=== PATIENT | male | born 1960 | race Caucasian/White ===

== ENCOUNTER → 2019-01-25 | Outpatient (CLI) | payer MEDICARE ==
--- NOTE | 2019-01-26 08:57 | CTL ---
EXAMINATION TYPE: CT Low Dose Lung DATE OF EXAM ORDERED: 01/25/2019 COMPARISON: 02/20/2014 HISTORY: . Low Dose CT Lung Screening CT DLP: [address] CTDI: 3.98 mGy IV CONTRAST USED: None. SCREENING VISIT: First visit COMPARISON: None. TECHNIQUE: Low dose computed tomography scan was performed through the chest at 1 millimeter thick se ctions and reconstructed images in the coronal plane at [address] DIAGNOSTIC QUALITY: Satisfactory FINDINGS: LUNG NODULES: Within the left upper lobe there is a nodule identified measuring approximately 1.6 cm image 146. Lingular nodule noted measuring 7.6 mm. No right-sided nodules are seen with certainty. LUNGS: COPD: Severity: Moderate intralobular emphysema. Fibrosis: Severity:None Lymph nodes: None Other findings: None RIGHT PLEURAL SPACE: Effusion: None Calcification: None Thickening: None Pneumothorax: None LEFT PLEURAL SPACE: Effusion: None Calcification: None Thickening: None Pneumothorax: None HEART: Heart Size: Mildly enlarged Coronary calcification: Mild Pericardial effusion: None OTHER FINDINGS: Upper abdomen: No significant abnormality Bony thorax: Degenerative changes Supraclavicular region: No significant abnormalityOther: No significant abnormalityI IMPRESSION: 1. Suspicious 4B PET/CT and/or tissue sampling recommended. FOLLOW UP CT CHEST RECOMMENDATION: PET/CT and/or tissue sampling recommended. CT LUNG RAD: 4B
== END ==
LOC: RADCTMAIN 16:22
PROVIDERS: ATTEND Internal Medicine
DX: Z12.2 Encounter for screening for malignant neoplasm of respiratory organs (principal); Z87.891 Personal history of nicotine dependence

== ENCOUNTER → 2019-02-05 | Outpatient (CLI) | payer MEDICARE | END | disposition home or self-care (01) | LOC: RADPETMAIN 12:37 | PROVIDERS: ATTEND Internal Medicine | DX: Z53.9 Procedure and treatment not carried out, unspecified reason (principal) ==

== ENCOUNTER → 2019-02-12 | Outpatient (CLI) | payer MEDICARE ==
--- NOTE | 2019-02-14 09:24 | PE ---
Nuclear medicine PET/CT HISTORY: Solitary pulmonary nodule, initial Patient received 12 mCi F-18 FDG intravenously in delayed scanning was performed from the skull base to the mid thighs. An attenuation correction CT, localization CT scan was performed. Correlation to CT chest 01/25/2019 Neck and chest: There is no evident cervical or supraclavicular adenopathy. There are prevascular med iastinal nodes with associated hypermetabolic uptake near the aorticopulmonary window, SUV 2.9, node present in the retrocaval pretracheal mediastinum is not enlarged by CT scan criteria, left hilar nod e not enlarged SUV 2.7. There is a calcified left upper lobe nodule medially. No pleural perfusion, n o pericardial effusion. Some possible post inflammatory scarring or atelectatic change present within the lingula. There is emphysematous change present. Probable postinflammatory scarring present in th e left upper lobe medially. The left upper lobe nodule described in prior report is again noted. Ther e is some associated mild uptake, SUV 1.9. Abdomen pelvis: There is no evident adrenal mass. No retroperitoneal adenopathy. No suspicious hyperm etabolic uptake. Prostate is enlarged and shows associated calcification Osseous structures are within normal limits. Postop changes are noted to the cervical spine and left clavicle. No suspicious hypermetabolic uptake. IMPRESSION: Suspicious nodule left upper lobe with some mild mediastinal uptake as described, annie de
== END | disposition home or self-care (01) ==
LOC: RADPETMAIN 08:04
PROVIDERS: ATTEND Internal Medicine
DX: R91.1 Solitary pulmonary nodule (principal)
CPT/HCPCS: 78815; A9552

== ENCOUNTER → 2019-03-21 | Outpatient (CLI) | payer MEDICARE ==
[2019-03-21 12:51] LABS: Anisocytosis Slight; Basophils # (A) 0.1 k/uL (0-0.2); Basophils % (A) 1 %; Eosinophils # (A) 0.2 k/uL (0-0.7); Eosinophils % (A) 2 %; HCT 49.8 % (39.0-53.0); HGB 16.4 gm/dL (13.0-17.5); Lymphocytes # (A) 2.4 k/uL (1.0-4.8); Lymphocytes % (A) 34 %; MCH 28.9 pg (25.0-35.0); MCHC 32.9 g/dL (31.0-37.0); MCV 87.9 fL (80.0-100.0); Mean Platelet Volume 7.1; Monocytes # (A) 0.4 k/uL (0-1.0); Monocytes % (A) 6 %; Neutrophils # (A) 3.9 k/uL (1.3-7.7); Neutrophils % (A) 54 %; Platelet Count 250 k/uL (150-450); RBC 5.67 m/uL (4.30-5.90); RDW 16.7 % (11.5-15.5); WBC 7.2 k/uL (3.8-10.6)
[2019-03-21 13:05] LABS: INR 0.9 (<1.2); Partial Thromboplastin Time 23.6 sec (22.0-30.0); Prothrombin Time 9.8 sec (9.0-12.0)
[2019-03-21 13:07] LABS: African American GFR (CKD) >90 (>60 ml/min/1.73 sqM); Anion Gap 7 mmol/L; Blood Urea Nitrogen 22 mg/dL (9-20); Carbon Dioxide 29 mmol/L (22-30); Chloride 103 mmol/L (98-107); Glucose 81 mg/dL (74-99); Sodium 139 mmol/L (137-145)
== END | disposition home or self-care (01) ==
LOC: LABPAT 11:43
PROVIDERS: ATTEND Thoracic Surgery (Cardiothoracic Vascular Surgery)
DX: Z01.812 Encounter for preprocedural laboratory examination (principal); Z01.818 Encounter for other preprocedural examination; R91.1 Solitary pulmonary nodule
CPT/HCPCS: 36415; 80051; 82565; 82947; 84520; 85025; 85610; 85730; 93005

== ENCOUNTER 2019-04-21 06:12 | Day surgery (SDC) | payer MEDICARE ==
[2019-04-20 08:56] VITALS: BMI 25.4
[~2019-04-21 06:12] MED LIST: LACTATED RINGERS 1,000 ML IV SCH; LIDOCAINE 1% 20 ML VIAL (10MG/ML) FOR IV START INTRADERMA PRN; MIDAZOLAM 2 MG/2 ML VIAL IV PRN
[2019-04-21] MEDS: ONDANSETRON 4 MG/2 ML VIAL IVP ONE ×2 (06:42→09:12)
[2019-04-21] MEDS: DEXAMETHASONE SOD PHOSPHATE 10 MG/ML 1 ML VIAL IV ONE ×2 (06:43→12:18)
[2019-04-21] MEDS ORDERED: ROCURONIUM BROMIDE 10 MG/ML 10 ML VIAL IV ONE (07:29)
[2019-04-21] MEDS ORDERED: NEOSTIGMINE 1 MG/ML 10 ML VIAL ONE (07:29)
[2019-04-21] MEDS ORDERED: GLYCOPYRROLATE 0.2 MG/ML 2 ML VIAL ONE (07:29)
[2019-04-21] MEDS ORDERED: LABETALOL 5 MG/ML VIAL MDV ONE (07:29)
[2019-04-21] MEDS ORDERED: fentaNYL (PF) 50 MCG/ML 2 ML AMP ONE (07:29)
[2019-04-21] MEDS ORDERED: LIDOCAINE 1% INJ 10MG/ML (20 ML MDV) ONE (07:29)
[2019-04-21] MEDS ORDERED: PROPOFOL 10 MG/ML 20 ML VIAL IV ONE (07:29)
[2019-04-21] MEDS ORDERED: MIDAZOLAM 2 MG/2 ML VIAL ONE (07:29)
[2019-04-21] MEDS ORDERED: BUPIVACAINE (PF) 0.5% 30 ML VIAL SQ ONE ×2 (08:17)
[2019-04-21] MEDS: fentaNYL (PF) 50 MCG/ML 2 ML AMP IV PRN ×2 (09:12→09:21)
--- NOTE | 2019-04-21 09:13 | P.OP ---
Date of Procedure: 04/21/19 Preoperative Diagnosis: Left upper lobe lung tumor, AP window lymphadenopathy Postoperative Diagnosis: Same Procedure(s) Performed: Left thoracoscopy and biopsy of mediastinal lymph nodes Anesthesia: GISELE Surgeon: Jhonathan Matta Wet Sander #1: Nils Hernandez Estimated Blood Loss (ml): 20 IV fluids (ml): 500 Urine output (ml): 0 Pathology: other (Lacey 5 lymph nodes sent for permanent section and culture including routine, acid fast and fungal) Condition: stable Disposition: PACU Indications for Procedure: 58-year-old male smoker underwent screening computed tomography scan demonstrating a small mass in the left upper lobe of the lung. He has fairly marketed left upper lobe bullous emphysema. The lung nodule was very deep in the lung parenchyma. Patient was staged with a PET/CT which showed uptake in the lung mass as well as uptake in some mildly enlarged lymph nodes in the aorticopulmonary window. Various options were discussed with the patient. He opted for diagnostic staging lymph node biopsy as the first step. Given the location of the nodes and the adjacent severe pulmonary emphysematous disease, it was felt the best and safest route of approach would be through a left thoracoscopic approach. Operative Findings: There were partially complete fissures present. There was marketed bolus emphysematous change of the left upper lobe. There were some adhesions of this bullous disease to the mediastinal fat. The lung mass could not be palpated. There were enlarged anthracotic soft lymph nodes in the AP window. Description of Procedure: The patient was brought to the operating room, placed supine on the operating table, anesthetized and intubated with a double-lumen endotracheal tube. Tube was positioned with fiberoptic bronchoscopy. There was no evidence of any endobronchial noted. The patient was turned in the right lateral decubitus position and the left chest sterilely prepped and draped. 3 one-inch inch incisions were made in the left chest and carried into the pleural space. Single lung insufflation was used and the lung was retracted away from the mediastinal fat. Adhesions between the lung and the mediastinal fat were taken down with electrocautery. The AP window was exposed. There were enlarged anthracotic soft lymph nodes noted in the AP window. The pleura was incised with electrocautery and the lymph nodes dissected out. 3 lymph nodes were resected. A small portion of the largest one was sent for culture. The remainder was sent for permanent section. A piece of Surgicel was placed in the lymph node bed in order to control some minor venous bleeding. 28-Vietnamese chest tube was placed through separate stab incision and positioned posterior apically. It was secured with an 0 Ethibond suture. The lung was reinflated under thoracoscopic visualization. Rib blocks were performed at the level of the incisions with half percent Marcaine. The incisions were closed with layers of Vicryl suture. Skin glue and dry sterile dressings were applied. The chest tube was connected to a Pleur-evac. The drapes were removed and the patient transferred to recovery room extubated in stable condition.
--- NOTE | 2019-04-21 09:22 | XR ---
EXAMINATION TYPE: XR chest 1V portable DATE OF EXAM: 04/21/2019 COMPARISON: 06/09/2016 INDICATION: Post VATS TECHNIQUE: Single frontal view of the chest is obtained. FINDINGS: The heart size is normal. The pulmonary vasculature is normal. The lungs are clear. No pneumothorax is evident. Left-sided chest tube is present. Prior plate and s crews through the mid diaphysis left clavicle is noted. EKG leads overlie the chest. IMPRESSION: 1. No pneumothorax present. Left-sided chest tube is in position.
[2019-04-21] MEDS ORDERED: ACETAMINOPHEN TAB 500 MG TAB PO PRN (09:38)
[2019-04-21] MEDS ORDERED: IPRATROPIUM-ALBUTEROL 3 ML NEB IH PRN (09:38)
[2019-04-21] MEDS ORDERED: ONDANSETRON 4 MG/2 ML VIAL IVP PRN (09:38)
[2019-04-21] MEDS: IPRATROPIUM-ALBUTEROL 3 ML NEB IH SCH ×3 (11:12→19:43)
[2019-04-21] MEDS: DEXTROSE 5%-0.45% NACL 1,000 ML IV SCH (12:19)
[2019-04-21] MEDS: KETOROLAC 30 MG/ML 1 ML VIAL IVP SCH ×3 (12:25→23:25)
[2019-04-21] MEDS: HYDROcodone/APAP 5-325MG 1 EACH TAB PO PRN ×3 (12:26→20:30)
[2019-04-21] MEDS ORDERED: traMADol 50 MG TAB PO SCH (13:00)
[2019-04-21] MEDS: HEPARIN SODIUM,PORCINE 5,000 UNIT/ML 1 ML VIAL SQ SCH ×2 (17:16→23:25)
[2019-04-21] MEDS: SYMBICORT 160-4.5 MCG INHALER INHALATION SCH (19:41)
[2019-04-21] MEDS ORDERED: CYCLOBENZAPRINE 10 MG TAB PO SCH (21:00)
[2019-04-21] MEDS ORDERED: SERTRALINE 100 MG TAB PO SCH (21:00)
[2019-04-22 03:17] VITALS: RESP 18
[2019-04-22 06:12] LABS: Basophils % (A) 0 %; Eosinophils # (A) 0.1 k/uL (0-0.7); Eosinophils % (A) 1 %; HCT 42.1 % (39.0-53.0); HGB 14.5 gm/dL (13.0-17.5); Lymphocytes # (A) 2.4 k/uL (1.0-4.8); Lymphocytes % (A) 21 %; MCH 29.5 pg (25.0-35.0); MCHC 34.3 g/dL (31.0-37.0); MCV 85.8 fL (80.0-100.0); Monocytes # (A) 0.6 k/uL (0-1.0); Monocytes % (A) 5 %; Neutrophils # (A) 7.9 k/uL (1.3-7.7); Neutrophils % (A) 71 %; Platelet Count 234 k/uL (150-450); RBC 4.91 m/uL (4.30-5.90); RDW 14.8 % (11.5-15.5); WBC 11.1 k/uL (3.8-10.6)
[2019-04-22 06:22] LABS: African American GFR (CKD) >90 (>60 ml/min/1.73 sqM); Anion Gap 9 mmol/L; Blood Urea Nitrogen 23 mg/dL (9-20); Calcium 9.5 mg/dL (8.4-10.2); Carbon Dioxide 26 mmol/L (22-30); Chloride 99 mmol/L (98-107); Glucose 109 mg/dL (74-99); Potassium 4.4 mmol/L (3.5-5.1); Sodium 134 mmol/L (137-145)
[2019-04-22] MEDS: KETOROLAC 30 MG/ML 1 ML VIAL IVP SCH ×2 (06:27→11:16)
[2019-04-22] MEDS: SYMBICORT 160-4.5 MCG INHALER INHALATION SCH (07:12)
[2019-04-22] MEDS: IPRATROPIUM-ALBUTEROL 3 ML NEB IH SCH ×2 (07:12→10:54)
[2019-04-22] MEDS ORDERED: PANTOPRAZOLE 40 MG TABLET PO SCH (07:30)
[2019-04-22] MEDS: HEPARIN SODIUM,PORCINE 5,000 UNIT/ML 1 ML VIAL SQ SCH (08:10)
[2019-04-22] MEDS: HYDROcodone/APAP 5-325MG 1 EACH TAB PO PRN (08:11)
[2019-04-22] MEDS: DEXTROSE 5%-0.45% NACL 1,000 ML IV SCH (08:54)
[2019-04-22] MEDS ORDERED: LISINOPRIL 10 MG TAB PO SCH (09:00)
--- NOTE | 2019-04-22 09:20 | P.PN ---
Subjective Progress Note Date: 04/22/19 Principal diagnosis: Left upper lobe lung tumor with AP window lymphadenopathy. Previous medical history of current tobacco dependence, COPD, and hypertension POD #1 left thoracoscopy and biopsy of mediastinal lymph nodes The patient is currently sitting up in bed in no acute distress on the cardiac stepdown unit. His left-sided thoracostomy tube was placed to waterseal yes terday afternoon, he continued to have no air leak, and his chest x-ray this morning was stable. He denies shortness of breath. He does complain of some pain at the chest tube insertion site which is controlled on current medication regimen. He has been actively using his incentive spirometry and his been up ambulating in the room. No new concerns. Objective - Vital Signs Vital signs: Vital Signs Temp 97.7 F 04/22/19 03:49 Pulse 70 04/22/19 07:21 Resp 18 04/22/19 03:49 BP 118/78 04/22/19 03:49 Pulse Ox 89 L 04/22/19 03:49 Intake & Output 04/21/19 04/22/19 04/22/19 18:59 06:59 18:59 Intake Total 1380 420 Output Total 10 27 Balance 1370 -27 420 Weight 84.7 kg Intake: IV 900 Oral 480 420 Output: Chest Tube Drainage 27 Chest Tube Left 27 Estimated Blood Loss 10 Other: Voiding Method Toilet # Voids 2 1 - Constitutional General appearance: Present: cooperative, no acute distress - Respiratory Details: Lungs sounds diminished bilaterally. Respirations even, nonlabored. Currently on room air with oxygen saturation 93%. Able to achieve 1000 mL on his incentive spirometry. Left-sided thoracostomy tube present to waterseal, 30 mL serous drainage present in the atrium, no air leak present. - Cardiovascular Details: S1, S2 present. Regular rate and rhythm, sinus rhythm on telemetry. Palpable peripheral pulses bilaterally. No edema present. No calf pain or tenderness noted. - Gastrointestinal Gastrointestinal Comment(s): Abdomen soft, nontender, nondistended. Active bowel sounds present 4 quadrants. Tolerating diet. - Genitourinary Genitourinary Comment(s): Continues to void - Integumentary Integumentary Comment(s): Skin is warm and dry with evidence of good perfusion. - Neurologic Neurologic: Present: CNII-XII intact - Musculoskeletal Musculoskeletal: Present: gait normal, strength equal bilaterally - Psychiatric Psychiatric: Present: A&O x's 3, appropriate affect, intact judgment & insight - Allied health notes Allied health notes reviewed: nursing - Labs CBC & Chem 7: 04/22/19 05:27 04/22/19 05:27 Labs: Abnormal Lab Results - Last 24 Hours (Table) 04/22/19 04/22/19 Range/Units 05:27 05:27 WBC 11.1 H (3.8-10.6) k/uL Neutrophils # 7.9 H (1.3-7.7) k/uL Sodium 134 L (137-145) mmol/L BUN 23 H (9-20) mg/dL Glucose 109 H (74-99) mg/dL Microbiology - Last 24 Hours (Table) 04/21/19 08:40 Acid Fast Bacilli Smear - Final Lymph Node Acid Fast Bacilli Culture - Preliminary 04/21/19 08:40 Fungal Culture - Preliminary Lymph Node - Imaging and Cardiology Chest x-ray: image reviewed Assessment and Plan Assessment: 1. Left upper lobe lung tumor with AP window lymphadenopathy 2. Current tobacco dependence 3. COPD 4. Hypertension Plan: 1. Left thoracostomy tube was discontinued without incident. Repeat chest x- ray in 2 hours. If stable will discharge to home. 2. Encourage incentive spirometry use 3. Increase activity, ambulate in hallway 4. Encouraged continued smoking cessation 5. Follow-up appointments made. Discharge instructions placed on the discharge plan. MARRIAGE PERFORMER contact information given to patient. Time with Patient: Greater than 30
--- NOTE | 2019-04-22 10:30 | XR ---
EXAMINATION TYPE: XR chest 2V DATE OF EXAM: 04/22/2019 COMPARISON: 04/22/2019 earlier exam INDICATION: Post chest tube removal, history of lung nodule TECHNIQUE: Frontal and lateral views of the chest are obtained. FINDINGS: The heart size is normal. The pulmonary vasculature is normal. There is an infiltrate at the right base. Mild subsegmental atelectasis is likely present left base. Subcutaneous emphysema is present along the lateral left chest at the location of the previous chest tube. No pneumothorax is evident post chest tube removal.. IMPRESSION: 1. No pneumothorax post chest tube removal. 2. Bibasilar infiltrates. Correlate for subsegmental atelectasis. Pneumonia should be considered. Fol low-up to clearing is recommended
[2019-04-22 11:13] VITALS: BP 124/85; PULSE 65; TEMP 97.9
--- NOTE | 2019-04-22 11:39 | XR ---
EXAMINATION TYPE: XR chest 2V DATE OF EXAM: 04/22/2019 COMPARISON: 04/21/2019 INDICATION: Post VATS TECHNIQUE: Frontal and lateral views of the chest are obtained. FINDINGS: The heart size is normal. The pulmonary vasculature is normal. Bibasilar infiltrates are present. Correlate for atelectasis. This is an interval change. Left-sided chest tube remains in position. No pneumothorax is evident.. IMPRESSION: 1. Interval development of bibasilar infiltrates. This is greater on the right. Correlate for atelect asis
--- NOTE | 2019-04-22 14:20 | P.DS ---
Providers Expected date of discharge: 04/22/19 Attending physician: Jhonathan Matta Primary care physician: Magdalena Sarmiento [facility] Course: FINAL DIAGNOSIS: 1. Left upper lobe lung tumor with AP window lymphadenopathy 2. Current tobacco dependence 3. COPD 4. Hypertension PRINCIPAL PROCEDURE: 1. Left thoracoscopy and biopsy of mediastinal lymph nodes HISTORY OF PRESENT ILLNESS: This is a 58-year-old gentleman who follows on an outpatient basis with Dr. Sarmiento and Dr. Bullock for pulmonology. Due to his long- term history of smoking he was sent for a screening computed tomography scan in January 2019 which demonstrated a nodule in the left upper lobe. Subsequently he underwent PET scan that confirmed uptake in the nodule in the left upper lobe as well as uptake in the lymph nodes in the AP window. The uptake was relatively mild with SUVs in the 3ish range on both the lung nodule and the mediastinum with no other evidence of metastatic disease. The nodule measured 1.5 cm in greatest diameter and appeared fairly deep in the lung parenchyma. He did have significant bullous emphysema in the left lung. The patient was referred to Dr. Matta from cardiothoracic surgery. He was given various options including observation with repeat studies, needle biopsy, thoracoscopy with biopsy as well as lobectomy. The patient was unwilling to commit to lobectomy. He was recommended to undergo thoracoscopy with lymph node biopsy, and dependent on the results of the biopsy further recommendations would be made for surgical resection. The usual perioperative course was discussed in detail with the patient and his family, all risks and benefits were explained, all questions were answered, and consent was obtained to proceed with surgery. The patient was scheduled for surgery at the earliest possible date. HOSPITAL COURSE: The patient was brought to the hospital on 04/21/2019, taken to the preoperative area, prepared in the usual fashion, and subsequently taken to the operating room where Dr. Matta performed a left thoracoscopy with biopsy of mediastinal lymph nodes. Upon completion of surgery the patient was extubated and taken to the recovery room for further monitoring. Eventually he was admitted to 3 S. cardiac stepdown unit for further monitoring and recovery. His left pleural chest tube was placed to waterseal the afternoon of surgery with no air leak present. His follow-up chest x-ray on postop day 1 was stable, there was no air leak present, and the left pleural chest tube was discontinued without incident. His oxygen was titrated down, however he did need oxygen with ambulation. He was tolerating oral diet, his pain was controlled, and he was ready to be discharged to home with supplemental oxygen on postoperative day #1. He received written and verbal instruction regarding his medications, activity restrictions, signs and symptoms requiring physician notification, and follow-up appointments. COMPLICATIONS: The patient experienced no postoperative complications. Patient Condition at Discharge: Stable Plan - Discharge Summary Discharge Rx Participant: Yes New Discharge Prescriptions: New Acetaminophen Tab [Tylenol] 1,000 mg PO Q6HR PRN tab PRN Reason: Fever and/ or MILD Pain Continue Lisinopril [Zestril] 10 mg PO QAM Ibuprofen [Motrin] 800 mg PO BID Hydrocodone/Acetaminophen [Sheridan 7.5-325] 1 tab PO DAILY Cyclobenzaprine [Flexeril] 10 mg PO HS Budesonide/Formoterol Fumarate [Symbicort 160-4.5 Mcg Inhaler] 2 puff INHALATION BID Albuterol Inhaler [Ventolin Hfa Inhaler] 1 - 2 puff INHALATION RT-Q6H PRN PRN Reason: Dyspnea Hydrocortisone Cream [Hydrocortisone 1% Cream] 1 applic TOPICAL BID PRN PRN Reason: Skin Irritation Sertraline [Zoloft] 100 mg PO HS Albuterol Nebulized [Ventolin Nebulized] 1.25 mg INHALATION QID Discharge Medication List Cyclobenzaprine [Flexeril] 10 mg PO HS 06/09/16 [History] Hydrocodone/Acetaminophen [Sheridan 7.5-325] 1 tab PO DAILY 06/09/16 [History] Ibuprofen [Motrin] 800 mg PO BID 06/09/16 [History] Lisinopril [Zestril] 10 mg PO QAM 06/09/16 [History] Albuterol Inhaler [Ventolin Hfa Inhaler] 1 - 2 puff INHALATION RT-Q6H PRN 03/24/19 [History] Budesonide/Formoterol Fumarate [Symbicort 160-4.5 Mcg Inhaler] 2 puff INHALATION BID 03/24/19 [History] Hydrocortisone Cream [Hydrocortisone 1% Cream] 1 applic TOPICAL BID PRN 03/25/19 [History] Albuterol Nebulized [Ventolin Nebulized] 1.25 mg INHALATION QID 04/20/19 [History] Sertraline [Zoloft] 100 mg PO HS 04/20/19 [History] Acetaminophen Tab [Tylenol] 1,000 mg PO Q6HR PRN tab 04/22/19 [Rx] Follow up Appointment(s)/Referral(s): Jhonathan Matta MD [STAFF PHYSICIAN] - 04/28/19 9:30 am () Geoffrey Bullock MD [STAFF PHYSICIAN] - 04/26/19 2:00 pm (Thursday) Magdalena Sarmiento MD [Primary Care Provider] - As Needed Patient Instructions/Handouts: Thoracoscopy (DC) Activity/Diet/Wound Care/Special Instructions: DISCHARGE INSTRUCTIONS: 1. No driving for 2 weeks, or until physician gives their ok. 2. No lifting, pushing, or pulling more than 10 pounds for 2 weeks. The physician will advise of any restriction changes. 3. Continue pain control per as needed orders. Alternate acetaminophen (Tylenol) and ibuprofen (Motrin/Advil) for pain. 4. Continue with incentive spirometry and splinting until otherwise directed by the physician. 5. Leave chest tube dressing for 48 hours. After that, remove all dressings and shower daily. 6. Routine incision care. No powders, lotions, ointments on incisions. 7. Please call surgeon/POURED PIPE MAKER for temp greater than 101 F or purulent drainage from incisions. RADHA Pierce ; RADHA Hooks Discharge Disposition: HOME SELF-CARE
== END 2019-04-22 13:02 | disposition home or self-care (01) ==
LOC: OR 06:12 → 3SCARD 08:53 → OR 04-22 13:02
PROVIDERS: ATTEND Thoracic Surgery (Cardiothoracic Vascular Surgery)
DX: C7A.1 Malignant poorly differentiated neuroendocrine tumors (principal); J43.9 Emphysema, unspecified; I10 Essential (primary) hypertension; R91.8 Other nonspecific abnormal finding of lung field; F41.9 Anxiety disorder, unspecified; F32.9 Major depressive disorder, single episode, unspecified; M19.90 Unspecified osteoarthritis, unspecified site; F17.200 Nicotine dependence, unspecified, uncomplicated; I08.1 Rheumatic disorders of both mitral and tricuspid valves; R00.1 Bradycardia, unspecified; Z79.899 Other long term (current) drug therapy; Z79.1 Long term (current) use of non-steroidal anti-inflammatories (NSAID); Z79.891 Long term (current) use of opiate analgesic; Z79.51 Long term (current) use of inhaled steroids; Z88.5 Allergy status to narcotic agent
CPT/HCPCS: 94640 ×4; 94760; 88305; 80048; 85025; 88342; 88341; 87116; 87102; 87206; 71045; 71046; 32606; C1729; J2250; J1644 ×2; J1100; J2710; J0690; J2405; J2001; J3010; J1885 ×2; J2704

== ENCOUNTER → 2019-05-14 | Outpatient (CLI) | payer MEDICARE ==
--- NOTE | 2019-05-18 09:58 | PE ---
Nuclear medicine PET/CT HISTORY: Small cell lung carcinoma, subsequent Patient received 11.9 mCi F-18 FDG intravenously in delayed scanning was performed from the skull bas e to the mid thighs. Localization and attenuation correction CT scan was performed. Correlation to prior nuclear medicine PET/CT 02/12/2019 Neck and chest: There is no evident cervical, supraclavicular, axillary adenopathy. There is artifact from dental amalgam and cervical hardware which could limit sensitivity. Prevascular node is suspect ed measuring 16 mm in short axis and is increased as compared to prior exam. Mild left hilar uptake s imilar to prior exam, SUV is 3.5. Groundglass opacities present at the posterior lung bases, linear p arenchymal bands are compatible with scarring within the lungs. Nodular density in the lingula shows a similar appearance. There is emphysematous change which is extensive. No pleural or pericardial eff usion. ABDOMEN: No evident adrenal mass or liver mass. No retroperitoneal adenopathy or suspicious metabolic uptake. Diverticular change seen in the sigmoid colon. Prostate calcifications are present. Osseous structures show no interval change. IMPRESSION: Interval increase in size in the prevascular adenopathy without associated hypermetabolic uptake.
== END | disposition home or self-care (01) ==
LOC: RADPETMAIN 11:49
PROVIDERS: ATTEND Internal Medicine Hematology & Oncology
DX: C34.12 Malignant neoplasm of upper lobe, left bronchus or lung (principal); R59.0 Localized enlarged lymph nodes
CPT/HCPCS: 78815; A9552

== ENCOUNTER → 2019-05-16 | Outpatient (CLI) | payer MEDICARE ==
--- NOTE | 2019-05-16 21:57 | MR ---
EXAMINATION TYPE: MR brain wo/w con DATE OF EXAM: 05/16/2019 COMPARISON: None HISTORY: Small cell lung ca, headaches CONTRAST: Performed utilizing 7.5 mL intravenous Gadavist gadolinium contrast. TECHNIQUE: Multiplanar, multiecho imaging on a 3.0 Mirlande magnet is performed through the brain. Stud y is performed within 24 hours of arrival to the hospital. The craniovertebral junction is normal. The pituitary is normal. Diffusion-weighted imaging is performed. No abnormal hyperintensity is present to suggest an acute i ntracranial infarct or acute ischemic change. There are scattered punctate areas of hyperintensity on T2 and Inversion Recovery weighted sequences in subcortical and deep white matter which are non-specific but can be related to microvascular ische billy changes. This is slightly greater than expected for the patient age. Ventricles and sulci are appropriate for the patient age. Following contrast, no suspicious enhancement is evident. IMPRESSIONS: 1. No suspicious changes to suggest metastatic small cell lung cancer to the brain. 2. Scattered small deep white matter changes which are nonspecific.
== END ==
LOC: RADMRIMAIN 18:27
PROVIDERS: ATTEND Internal Medicine Hematology & Oncology
DX: C34.90 Malignant neoplasm of unspecified part of unspecified bronchus or lung (principal)
CPT/HCPCS: 70553

== ENCOUNTER → 2019-11-03 | Outpatient (CLI) | payer MEDICARE ==
[2019-11-03 09:07] LABS: African American GFR (CKD) >90 (>60 ml/min/1.73 sqM); Blood Urea Nitrogen 26 mg/dL (9-20); Non-African American GFR(CKD) >90 (>60 ml/min/1.73 sqM)
--- NOTE | 2019-11-03 11:39 | CT ---
EXAMINATION TYPE: CT ChestAbdPelvis w con DATE OF EXAM: 11/03/2019 INDICATION: Follow up for lung cancer. COMPARISON: 08/08/2019 CT DLP: 1165.8 mGycm CONTRAST: Performed with Oral Contrast and with IV Contrast, patient injected with 100ml mL of Isovue 300. TECHNIQUE: Axial images at 5 mm thick sections. Reconstructed images in the coronal plane. Delayed images through the kidneys. FINDINGS: CT CHEST: Portion of the thyroid visualized is normal. No suspicious lung nodules or focal infiltrates are present. Advanced emphysematous changes are prese nt with multiple blebs and bulla evident especially along the mediastinal border on the left. Previou s atelectasis at the lung bases has improved. Some streak atelectasis appears to be present within th e lingula and right middle lobe. No enlarged mediastinal or hilar adenopathy is evident. A small pretracheal lymph node is present. Th e previously discussed medial pretracheal lymph node discussed is stable in size from the July ex mination. The ascending aorta diameter at the level of the main pulmonary artery is 3.7 cm. The main pulmonary artery diameter at the bifurcation is 2.[address] ABDOMEN: Liver: Normal Spleen: Normal Pancreas: Normal Adrenal glands: The adrenal glands are normal. Gallbladder: Normal Kidneys: No masses are evident. No hydronephrosis is present. No cysts are present. Delayed images were obtained through the kidneys, which remain unremarkable. Aorta: Vascular calcification is within the aorta. Inferior vena cava: Normal. CT PELVIS: Loops of bowel within the abdomen and pelvis are normal. Diverticular changes without acute diverti culitis is within the sigmoid colon. There are loops of bowel which are incompletely distended or la ck oral contrast limiting their evaluation. Appendix: Normal as visualized. Urinary bladder: Normal. Genitourinary structures: Prostate is prominent contains calcification. Osseous structures: No suspicious lytic or sclerotic lesions. Degenerative disc changes are within th e lower lumbar spine. Old right rib fractures are noted. IMPRESSIONS: 1. Emphysematous changes. 2. Exam is stable from comparison. 3. No suspicious changes suggest recurrent or metastatic disease.
== END | disposition home or self-care (01) ==
LOC: RADCTMAIN 08:38
PROVIDERS: ATTEND Internal Medicine Hematology & Oncology
DX: J43.9 Emphysema, unspecified (principal); C34.92 Malignant neoplasm of unspecified part of left bronchus or lung
CPT/HCPCS: 82565; 84520; 71260; 74177; 36415; Q9967

== ENCOUNTER → 2020-01-30 | Outpatient (CLI) | payer MEDICARE ==
--- NOTE | 2020-01-30 11:04 | CT ---
EXAMINATION TYPE: CT ChestAbdPelvis w con DATE OF EXAM: 01/30/2020 COMPARISON: Prior CT chest abdomen pelvis 11/03/2019 HISTORY: Lung cancer. CT DLP: 1119.2 mGycm Automated exposure control for dose reduction was used. CONTRAST: CT scan of the chest, abdomen and pelvis is performed with Oral Contrast and with IV Contrast, patien t injected with 100 mL of Isovue M300. FINDINGS: LUNGS: The lungs are stable, there is no concerning parenchymal mass or nodule identified. There are emphysematous changes present There is no pleural effusion or pneumothorax seen. The tracheobronchi al tree is patent. MEDIASTINUM: There are no greater than 1 cm hilar or mediastinal lymph nodes. No pericardial effusi on is seen. AORTA: No significant abnormality is seen. OTHER: No additional significant abnormality is seen. LIVER/GB: No significant abnormality is appreciated. PANCREAS: No significant abnormality is seen. SPLEEN: No significant abnormality is seen. ADRENALS: No significant abnormality is seen. KIDNEYS: No significant abnormality is seen. REPRODUCTIVE ORGANS: Stable. BOWEL: No significant interval change is seen, diverticular change noted within the sigmoid colon. FREE AIR: No Free Air visible. ASCITES: None seen. RETROPERITONEAL ADENOPATHY: No retroperitoneal adenopathy is seen. LYMPH NODES: No greater than 1 cm abdominal or pelvic lymph nodes are appreciated. URINARY BLADDER: No significant abnormality is seen. PELVIC ADENOPATHY: None visualized. OSSEOUS STRUCTURES: No significant interval change is seen. IMPRESSION: No evident recurrence
== END | disposition home or self-care (01) ==
LOC: RADCTMAIN 08:53
PROVIDERS: ATTEND Internal Medicine Hematology & Oncology
DX: C34.92 Malignant neoplasm of unspecified part of left bronchus or lung (principal)
CPT/HCPCS: 71260; 74177; Q9967 ×2

== ENCOUNTER → 2020-04-25 | Outpatient (CLI) | payer MEDICARE ==
--- NOTE | 2020-04-25 14:31 | CT ---
EXAMINATION TYPE: CT ChestAbdPelvis w con DATE OF EXAM: 04/25/2020 COMPARISON: Most recent CT January 30, 2020 and older CTs HISTORY: Follow up lung cancer. History of chemotherapy and radiation treatment. CT DLP: 996.6 mGycm. Automated Exposure Control for Dose Reduction was Utilized. CONTRAST: CT scan of the thorax, abdomen and pelvis is performed with oral and with IV Contrast, patient inject ed with 100 mL of Isovue 300. FINDINGS: LUNGS: Background moderate underlying emphysematous changes redemonstrated. Mild to moderate linear s carring and atelectasis in both bases just above diaphragm redemonstrated. No new suspicious nodules or masses bilaterally. No pleural effusion or pneumothorax seen bilaterally. MEDIASTINUM: There are no new greater than 1 cm hilar or mediastinal lymph nodes. Stable subcentimete r prevascular lymph node axial image 26 noted. No cardiomegaly or pericardial effusion is seen. OTHER: Small right greater than left subareolar flame-shaped gynecomastia redemonstrated. LIVER/GB: No significant abnormality is appreciated. PANCREAS: No significant abnormality is seen. SPLEEN: No significant abnormality is seen. ADRENALS: Stable low-density thickening left adrenal gland consistent with benign lipid rich hyperpla howard. KIDNEYS: Symmetrical cortical medullary uptake and excretion without hydronephrosis seen bilaterally. BOWEL: No suspicious small or large bowel dilatation. Sigmoid colonic diverticula redemonstrated. Or al contrast reaches the proximal transverse colon level. GENITAL ORGANS: Central zone calcifications. LYMPH NODES: No greater than 1cm abdominal or pelvic lymph nodes are appreciated. OSSEOUS STRUCTURES: Stable moderate disc space narrowing with vacuum disc phenomenon lumbosacral junc tion. OTHER: Stable moderate calcified plaque distal abdominal aorta extending into branch vessels IMPRESSION: No suspicious new mass or adenopathy identified to suggest active neoplastic recurrence.
== END | disposition home or self-care (01) ==
LOC: RADCTMAIN 12:05
PROVIDERS: ATTEND Internal Medicine Hematology & Oncology
DX: C34.92 Malignant neoplasm of unspecified part of left bronchus or lung (principal)
CPT/HCPCS: 71260; 74177; Q9967

== ENCOUNTER → 2020-08-01 | Outpatient (CLI) | payer MEDICARE ==
--- NOTE | 2020-08-01 21:25 | CT ---
EXAMINATION TYPE: CT ChestAbdPelvis w con DATE OF EXAM: 08/01/2020 INDICATION: Lung CA COMPARISON: 04/25/2020 CT DLP: 574.7 mGycm CONTRAST: Performed with Oral Contrast and with IV Contrast, patient injected with 100 mL of Isovue 300. TECHNIQUE: Axial images at 5 mm thick sections. Reconstructed images in the coronal plane. Delayed images through the kidneys. FINDINGS: CT CHEST: Portion of the thyroid visualized is normal. No suspicious lung nodules or focal infiltrates are present. Emphysematous changes are present with multiple blebs and bulla present. No enlarged mediastinal or hilar adenopathy is evident. The ascending aorta diameter at the level of the main pulmonary artery is 3.8 cm. The main pulmonary artery diameter at the bifurcation is 2.[address] ABDOMEN: Liver: Normal Spleen: Normal Pancreas: Normal Adrenal glands: The adrenal glands are normal. Gallbladder: Normal Kidneys: No masses are evident. No hydronephrosis is present. No cysts are present. Delayed images were obtained through the kidneys, which remain unremarkable. Aorta: Normal Inferior vena cava: Normal. CT PELVIS: Loops of bowel within the abdomen and pelvis are normal. There are loops of bowel which are incom pletely distended or lack oral contrast limiting their evaluation. Appendix: Normal as visualized. Urinary bladder: Normal. Genitourinary structures: Prostate contains calcification Osseous structures: No suspicious lytic or sclerotic lesions. IMPRESSIONS: 1. No suspicious changes to suggest recurrent or metastatic lung cancer. 2. Some COPD
== END | disposition home or self-care (01) ==
LOC: RADCTMAIN 11:56
PROVIDERS: ATTEND Internal Medicine Hematology & Oncology
DX: Z03.89 Encounter for observation for other suspected diseases and conditions ruled out (principal); C34.92 Malignant neoplasm of unspecified part of left bronchus or lung; J44.9 Chronic obstructive pulmonary disease, unspecified
CPT/HCPCS: 71260; 74177; Q9967 ×2

== ENCOUNTER → 2020-11-28 | Outpatient (CLI) | payer MEDICARE ==
--- NOTE | 2020-11-28 13:35 | CT ---
EXAMINATION TYPE: CT ChestAbdPelvis w con DATE OF EXAM: 11/28/2020 COMPARISON: Most recent CT August 01, 2020 and older studies HISTORY: Lung CA follow up CT DLP: 854.9 mGycm. Automated Exposure Control for Dose Reduction was Utilized. CONTRAST: CT scan of the thorax, abdomen and pelvis is performed with oral and with IV Contrast, patient inject ed with 100 mL of Isovue 300. FINDINGS: LUNGS: Background mild to moderate underlying emphysematous change is redemonstrated. Mild linear sca rring and/or atelectasis in both bases just above diaphragm is redemonstrated. More focal scarring wi th bulla and bleb formation anterior in the upper to mid lungs greater in the left lung is redemonstr ated. No new suspicious or enlarging greater than 5 mm nodules or masses bilaterally. No pleural effu uziel or pneumothorax seen bilaterally. MEDIASTINUM: There are no new greater than 1 cm hilar or mediastinal lymph nodes. Stable subcentimete r prevascular lymph node axial image 26 noted. No cardiomegaly or pericardial effusion is seen. OTHER: Small right greater than left subareolar flame-shaped gynecomastia redemonstrated. LIVER/GB: No significant abnormality is appreciated. PANCREAS: No significant abnormality is seen. SPLEEN: No significant abnormality is seen. ADRENALS: Stable low-density thickening left adrenal gland consistent with benign lipid rich hyperpla howard. KIDNEYS: Symmetrical cortical medullary uptake and excretion without hydronephrosis seen bilaterally. Circumaortic left renal vein which is normal variant redemonstrated. BOWEL: No suspicious small or large bowel dilatation. Sigmoid colonic diverticula redemonstrated. Or al contrast does not reach level of terminal ileum on current study. Normal-appearing appendix from b ase of cecum. GENITAL ORGANS: Central zone calcifications in mildly enlarged prostate. Adjacent scattered pelvic ph leboliths. LYMPH NODES: No greater than 1cm abdominal or pelvic lymph nodes are appreciated. OSSEOUS STRUCTURES: Stable moderate disc space narrowing with vacuum disc phenomenon lumbosacral junc tion. Surgical change left clavicle redemonstrated. Surgical change lower cervical spine partially im aged. OTHER: Stable moderate calcified plaque distal abdominal aorta extending into branch vessels IMPRESSION: No suspicious new mass or adenopathy identified to suggest active neoplastic recurrence.
== END | disposition home or self-care (01) ==
LOC: RADCTMAIN 11:05
PROVIDERS: ATTEND Internal Medicine Hematology & Oncology
DX: C34.92 Malignant neoplasm of unspecified part of left bronchus or lung (principal)
CPT/HCPCS: 71260; 74177; Q9967

== ENCOUNTER → 2021-03-22 | Outpatient (CLI) | payer MEDICARE ==
--- NOTE | 2021-03-22 13:41 | CT ---
EXAMINATION TYPE: CT ChestAbdPelvis w con DATE OF EXAM: 03/22/2021 COMPARISON: 11/28/2020 and 08/01/2020 HISTORY: 60-year-old male Follow up lung cancer. TECHNIQUE: Contiguous axial scanning of the chest, abdomen, and pelvis performed with IV Contrast, pa tient injected with 100 mL of Isovue 300. Delayed images through the kidneys were obtained. Coronal/s agittal reconstructions performed. CT DLP: 632.2 mGycm Automated exposure control for dose reduction was used. FINDINGS: CHEST: Heart normal size without pericardial effusion. Borderline ectatic ascending aorta 3.7 cm. Mild atherosclerotic arch calcifications. Conventional arc h vessel branching anatomy. Borderline caliber to the main right and left pulmonary arteries measuring up to 2.6 cm suggesting un derlying pulmonary arterial hypertension. Scattered small mediastinal lymph nodes are unchanged. No thoracic lymphadenopathy by CT size criteri a. Moderate centrilobular emphysema. Stable tiny 2 mm pulmonary nodule along the anterior minor fissure, axial image 39. Some scattered st ander atelectasis or scarring in the lower lungs. No consolidation or pleural effusion. ABDOMEN: No focal liver lesion or biliary ductal dilatation. Portal venous system is patent. Gallbladder, adrenal glands, kidneys, spleen, pancreas within normal limits. Circumaortic left renal vein. Moderate atherosclerotic calcifications infrarenal abdominal aorta and iliac arteries. There may be s egmental moderate to severe atherosclerotic narrowing distal common iliac arteries, left greater than right. Suspect additional short segment severe atherosclerotic narrowing left external iliac artery. No dilated small bowel, free fluid, or free air. No mesenteric or retroperitoneal lymphadenopathy. Normal appendix. Oral contrast progressed to the distal third transverse colon. No significant stool burden. Sigmoid diverticulosis. No pericolonic inflammatory change. PELVIS: Bladder partially urine distended. Multiple pelvic phleboliths. Prostate gland measures 5.2 cm wide w ith central calcifications. No abnormal fluid collection in the pelvis or pelvic lymphadenopathy. BONES: Mild degenerative change at the hips and right SI joint. ACDF hardware partially visualized. Partiall y visualized previous plate and screw fixation left clavicle. Mild to moderate degenerative disc dise ase lower thoracic spine and moderate at L5-S1. Facet arthropathy lower lumbar spine. Mild superior e ndplate deformity T3 and T5 are unchanged. IMPRESSION: 1. COPD WITH MODERATE EMPHYSEMA. 2. NO EVIDENCE FOR RECURRENT OR METASTATIC DISEASE. 3. MODERATE ATHEROSCLEROTIC CALCIFICATIONS INFRARENAL ABDOMINAL AORTA AND ILIAC ARTERIES WITH POSSIBL E SEGMENTAL MODERATE TO SEVERE STENOSES DISTAL LEFT COMMON ILIAC ARTERY AND LEFT EXTERNAL ILIAC ARTER Y. 4. SIGMOID DIVERTICULOSIS AND PROSTATOMEGALY (5.2 CM WIDE).
== END | disposition home or self-care (01) ==
LOC: RADCTMAIN 09:12
PROVIDERS: ATTEND Internal Medicine Hematology & Oncology
DX: J43.9 Emphysema, unspecified (principal); I70.203 Unspecified atherosclerosis of native arteries of extremities, bilateral legs; I70.0 Atherosclerosis of aorta; K57.30 Diverticulosis of large intestine without perforation or abscess without bleeding; N40.0 Benign prostatic hyperplasia without lower urinary tract symptoms
CPT/HCPCS: 71260; 74177; Q9967

== ENCOUNTER 2021-07-18 07:50 | Day surgery (SDC) | payer MEDICARE ==
[2021-07-16 09:13] VITALS: BMI 22.1
[~2021-07-18 07:50] MED LIST changes: +ALPRAZolam 0.25 MG TAB PO PRN; +ALPRAZolam 0.5 MG TAB PO PRN; +ASPIRIN 325 MG TAB PO PRN; +HEPARIN SODIUM,PORCINE 10,000 UNIT in SODIUM CHLORIDE 0.9% 1,000 ML IRRIGATION PRN; +HEPARIN SODIUM,PORCINE 2,500 UNIT in SODIUM CHLORIDE 0.9% 250 ML IRRIGATION PRN; -LACTATED RINGERS 1,000 ML IV SCH; -LIDOCAINE 1% 20 ML VIAL (10MG/ML) FOR IV START INTRADERMA PRN; -MIDAZOLAM 2 MG/2 ML VIAL IV PRN; +SODIUM CHLORIDE 0.9% 1,000 ML in EMPTY BAG 1 BAG IV ONE; +ZOLPIDEM 5 MG TAB PO PRN
[2021-07-18 08:23] VITALS: TEMP 97.9
[2021-07-18] MEDS: MIDAZOLAM 2 MG/2 ML VIAL IVP ONE ×2 (09:08→09:22)
[2021-07-18] MEDS ORDERED: HYDROmorphone 0.5 MG/0.5 ML SYRINGE IVP ONE (09:08)
[2021-07-18] MEDS ORDERED: LIDOCAINE 1% INJ 10MG/ML (20 ML MDV) SQ ONE (09:24)
[2021-07-18] MEDS ORDERED: SODIUM CHLORIDE 0.9% 1,000 ML IV SCH (10:00)
--- NOTE | 2021-07-18 10:04 | IR ---
EXAMINATION TYPE: IR angio abdominal w runoff DATE OF EXAM: 07/18/2021 COMPARISON: NONE HISTORY: Fluoroscopy time. Fluoroscopy was provided to the referring clinician.
--- NOTE | 2021-07-18 10:13 | AN ---
ANGIOGRAPHY REPORT DATE OF SERVICE: July 18, 2021. PERFORMING PHYSICIAN: Otilio Upton MD. PROCEDURE PERFORMED: 1. Abdominal aortogram. 2. Bilateral lower extremity runoff. 3. Ultrasound-guided access of the right common femoral artery. INDICATION: Left lower extremity intermittent claudication in the 61 year old gentleman who underwent an anterior duplex study and that revealed left iliac disease. APPROACH: Right common femoral artery. COMPLICATIONS: None. LEVEL OF SEDATION: Moderate, with sedation length of 12 minutes. PROCEDURE DESCRIPTION: After obtaining an informed consent, the patient was brought to the cardiac cardiac catheterization technician. The right common femoral artery was cannulated using micropuncture technique under ultrasound guidance, the micropuncture wire passed easily. Then I placed a 5-[place] sheath at the right common femoral artery. After that I did an abdominal aortogram and bilateral lower extremities runoff using a 5-[place] pigtail catheter which was initially placed at the level of the renal arteries then it was pulled into above the bifurcation of the aorta to right and left common iliac arteries. The procedure was completed without any complication. SELECTIVE PERIPHERAL ANGIOGRAM: 1. The aorta appeared to be angiographically normal. 2. Iliac arteries: The right and left common iliac arteries are calcified with mild disease only. 3. Internal iliac arteries are patent. 4. External iliac arteries: The right external iliac artery appeared to be angiographically normal. The left external iliac artery appeared to have an intermediate lesion in the range of 50% only. 5. Common femoral arteries: The right and left common femoral arteries appeared to be angiographically normal. 6. Profunda: Both profunda are patent. 7. SFA: Both SFA is patent. 8. Popliteal: Both popliteal are patent. 9. Below the knee: There are at least 2 vessel runoff below the knee bilaterally. 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 POSTPROCEDURE MANAGEMENT: Medical treatment. MMODL / IJN: [id number] /
[2021-07-18 16:24] VITALS: RESP 16
[2021-07-18 16:25] VITALS: BP 142/87; PULSE 66
== END 2021-07-18 15:40 | disposition home or self-care (01) ==
LOC: CATHCVL 07:50
PROVIDERS: ATTEND Internal Medicine Interventional Cardiology
DX: I73.9 Peripheral vascular disease, unspecified (principal); Z20.822 Contact with and (suspected) exposure to COVID-19
CPT/HCPCS: 75625; 75716; 36200; 76937; 87635; C1769 ×4; C1894; J2250; J2001; J1170

== ENCOUNTER → 2021-07-24 | Outpatient (CLI) | payer MEDICARE ==
[2021-07-24 07:03] LABS: African American GFR (CKD) >90 (>60 ml/min/1.73 sqM); Blood Urea Nitrogen 19 mg/dL (9-20); Non-African American GFR(CKD) 87 (>60 ml/min/1.73 sqM)
--- NOTE | 2021-07-24 08:40 | CT ---
EXAMINATION TYPE: CT ChestAbdPelvis w con DATE OF EXAM: 07/24/2021 COMPARISON: 03/22/2021 HISTORY: Lung cancer CT DLP: 654.2 mGycm CONTRAST: CT scan of the chest, abdomen and pelvis is performed with Oral Contrast and with IV Contrast, patien t injected with 100 mL of Isovue 300. CT Chest: LUNGS: Emphysematous changes throughout both lung león. Hyperinflation compatible with COPD. No dis tinct pulmonary nodularity at this time. No evidence for recurrent mass. No focal consolidation. MEDIASTINUM: Thoracic aorta is of normal caliber. The heart is not enlarged. No evidence for media stinal mass or adenopathy. HILAR STRUCTURES: No evidence for mass. No hilar adenopathy is appreciated. OTHER: No significant abnormality. CONTRAST CT ABDOMEN AND PELVIS FINDINGS: LIVER/GB: No calcified gallstones. No space occupying hepatic lesion. Biliary tree is of normal ca liber. PANCREAS: No inflammation. No distinct mass. SPLEEN: No splenic enlargement. No lesion seen. ADRENALS: No nodule. No thickening. KIDNEYS/BLADDER: No hydronephrosis. No nephrolithiasis. No disctinct renal mass. BOWEL: Normal appendix. Normal bowel caliber. No inflammation. GENITAL ORGANS: No gross abnormality. LYMPH NODES: No greater than 1cm abdominal or pelvic lymph nodes are appreciated. AORTA: No significant abnormality. OSSEOUS STRUCTURES: No significant abnormality is seen. OTHER: No significant additional abnormality is seen. IMPRESSION: 1. Emphysematous changes with underlying COPD. No evidence for recurrent mass or nodule. No evidence for metastatic disease.
== END | disposition home or self-care (01) ==
LOC: RADCTMAIN 06:26
PROVIDERS: ATTEND Internal Medicine Hematology & Oncology
DX: C34.92 Malignant neoplasm of unspecified part of left bronchus or lung (principal); J43.9 Emphysema, unspecified
CPT/HCPCS: 82565; 84520; 71260; 74177; 36415; Q9967

== ENCOUNTER → 2021-12-31 | Outpatient (CLI) | payer MEDICARE ==
--- NOTE | 2021-12-31 14:57 | CT ---
EXAMINATION TYPE: CT ChestAbdPelvis w con DATE OF EXAM: 12/31/2021 COMPARISON: CT dated 07/24/2021 HISTORY: f/u lung CA CT DLP: 732.5 mGycm Automated exposure control for dose reduction was used. CONTRAST: CT scan of the chest, abdomen and pelvis is performed with Oral Contrast and with IV Contrast, patien t injected with 70 mL of Isovue 300. FINDINGS: LUNGS: Persistent COPD changes. Minimal subsegmental atelectasis seen in the lingula. Linear groundgl ass atelectasis seen in the posterior aspect of the lower lobes. No new suspicious lung lesion. Paten t trachea and main bronchi. No pleural effusion. MEDIASTINUM: There are no greater than 1 cm hilar or mediastinal lymph nodes. No cardiomegaly. Arteri al atherosclerotic calcifications. No pericardial effusion is seen. OTHER: Chronic healed fractures of the posterior aspects of the right lower ribs. Previous left clav icular and cervical spine fixation. No gross aggressive bone lesion. LIVER/GB: No significant abnormality is appreciated. PANCREAS: No significant abnormality is seen. SPLEEN: No significant abnormality is seen. ADRENALS: No significant abnormality is seen. KIDNEYS: No significant abnormality is seen. BOWEL: Colonic diverticulosis with scattered segments of mild nonspecific colonic wall thickening. N o bowel obstruction. REPRODUCTIVE ORGANS: Prostatic concretions with slightly enlarged prostate. Unremarkable seminal vesi cles. Grossly unremarkable urinary bladder. LYMPH NODES: No greater than 1 cm abdominal or pelvic lymph nodes are appreciated. OSSEOUS STRUCTURES: No gross aggressive bone lesion. OTHER: Arterial atherosclerotic calcifications. No sizable ascites. IMPRESSION: No evidence of local tumor recurrence or metastatic disease in the chest, abdomen or the pelvis. Inci dental findings as described above.
== END | disposition home or self-care (01) ==
LOC: RADCTMAIN 10:27
PROVIDERS: ATTEND Internal Medicine Hematology & Oncology
DX: C34.90 Malignant neoplasm of unspecified part of unspecified bronchus or lung (principal)
CPT/HCPCS: 71260; 74177; Q9967

== ENCOUNTER → 2022-07-25 | Outpatient (CLI) | payer MEDICARE ==
--- NOTE | 2022-07-25 13:50 | CT ---
EXAMINATION: CT CHEST, ABDOMEN AND PELVIS WITH IV CONTRAST DATE OF EXAMINATION: 07/25/2022. COMPARISON: 12/31/2021. INDICATION: Follow-up for lung cancer. PROCEDURE: Axial CT of the chest, abdomen and pelvis was performed following the intravenous adminis tration of 70 ml Isovue 300. Coronal and sagittal reformats were performed. CT dose lowering techniq ues were used, to include: automated exposure control, adjustment for patient size, and/or use of ite rative reconstruction. FINDINGS: CHEST: Mediastinum and Gwen: There is no axillary, mediastinal or hilar lymphadenopathy. Pleural and Pericardial spaces: There are no pleural or pericardial effusions. Cardiovascular: There is mild vascular calcification and plaque seen throughout the thoracic aorta wi thout evidence of aneurysmal dilation or dissection. Pulmonary Artery: There are no central pulmonary arterial filling defects. Lung Parenchyma and Airways: There is a new 6 mm nodule in the right upper lobe on series 4 image 17 which would raise the suspicion of a metastasis in a patient with a known history of lung cancer. The re is a 4.7 mm nodule seen within the left upper lobe on series 4 image 29 is not clearly present on previous examination and may represent a metastatic nodule. Some linear bands of opacity otherwise se en throughout the lungs bilaterally which are likely related to atelectasis or scarring. There is mil [id number] diffuse centrilobular emphysema and moderate upper lobe predominant paraseptal emphysem atous changes. ABDOMEN: Liver and Biliary system: Normal. Adrenal glands: Normal. Kidneys and ureters: Normal. Spleen: Normal. Pancreas: Normal. Gallbladder: Normal. Lymph nodes, Peritoneum and mesentery: There is no mesenteric or retroperitoneal lymphadenopathy. Gastrointestinal tract: There are no dilated loops of bowel or free intraperitoneal air. . The appe ndix is normal. There is scattered colonic diverticulosis without evidence of diverticulitis. Aorta/IVC: There is moderate to significant vascular calcification throughout the abdominal aorta w ithout evidence of aneurysmal dilation or dissection. IVC normal. Abdominal wall: Normal. PELVIS: Fluid: There is no free fluid in the pelvis. Lymph Nodes: There is no pelvic or inguinal lymphadenopathy.. Urinary bladder: Normal. BONES: There is a surgical fusion plate along the left clavicle which is partially included on the e valuation. Old right posterior rib fractures are seen. There are no aggressive osseous lesions. ADDITIONAL SIGNIFICANT FINDINGS: None. IMPRESSION: 1. New right upper lobe pulmonary nodule and possible new left upper lobe pulmonary nodule suspicious for metastatic disease in a patient with a known history of lung carcinoma. 2. Emphysema. 3. Diverticulosis without evidence of diverticulitis.
== END | disposition home or self-care (01) ==
LOC: RADCTMAIN 11:59
PROVIDERS: ATTEND Internal Medicine Hematology & Oncology
DX: C34.92 Malignant neoplasm of unspecified part of left bronchus or lung (principal); J43.9 Emphysema, unspecified; K57.30 Diverticulosis of large intestine without perforation or abscess without bleeding; R91.1 Solitary pulmonary nodule
CPT/HCPCS: 71260; 74177; Q9967

== ENCOUNTER → 2022-10-16 | Outpatient (CLI) | payer MEDICARE ==
--- NOTE | 2022-10-16 12:36 | MR ---
EXAMINATION TYPE: MR brain wo/w con DATE OF EXAM: 10/16/2022 COMPARISON: Prior MRI brain May 16, 2019 HISTORY: Lung cancer small cell with headaches. Bilateral hearing loss per patient. TECHNIQUE: Multiplanar, multisequence images of the brain and brainstem is performed without and with IV contras t, utilizing 7 mL intravenous Gadavist . FINDINGS: Diffusion weighted images demonstrate no evidence of a recent infarct or other diffusion ab normality. The ventricular system and cisternal spaces are normal in size and appearance. The brain volume is age appropriate. There are now confluent areas of T2 hyperintensity throughout the white ma tter bilaterally with significant change from prior MRI. Midline structures demonstrate normal morphology. The craniocervical junction appears within normal limits. Post contrast images demonstrate no abnormal enhancement or enhancing masses. The dural veno us sinuses appear patent. The visualized sinuses are clear and the globes are intact. Nasal septum is deviated to right of midline. IMPRESSION: 1. No abnormal enhancing intraparenchymal masses to suggest metastatic disease to the brain. 2. Now severe confluent areas of T2 hyperintensity bilaterally. Differential includes posttreatment c hange if patient is receiving nontargeted radiation treatment, viral infections, toxic or metabolic d emyelination, inflammatory, and vascular etiologies. Clinical correlation and follow-up is advised.
== END | disposition home or self-care (01) ==
LOC: RADMRIMAIN 08:52
PROVIDERS: ATTEND Internal Medicine Hematology & Oncology
DX: C34.92 Malignant neoplasm of unspecified part of left bronchus or lung (principal); H91.93 Unspecified hearing loss, bilateral; Z98.890 Other specified postprocedural states
CPT/HCPCS: 70553; A9585

== ENCOUNTER → 2023-01-23 | Outpatient (CLI) | payer MEDICARE ==
--- NOTE | 2023-01-25 18:47 | CT ---
EXAMINATION TYPE: CT ChestAbdPelvis w con DATE OF EXAM: 01/23/2023 INDICATION: Follow up for lung cancer. COMPARISON: 09/29/2022 CT DLP: 657.1 mGycm CONTRAST: Performed with Oral Contrast and with IV Contrast, patient injected with 100ml mL of Isovue 300. TECHNIQUE: Axial images at 5 mm thick sections. Reconstructed images in the coronal plane. Delayed images through the kidneys. FINDINGS: CT CHEST: Portion of the thyroid visualized is normal. Emphysematous changes are present through the lung. Small irregular density within the posterior medi al left upper lung field measuring 0.9 cm. This is new from comparison. Series 4 image 17 appears to be cavitary lesion within the right upper lung field measuring 1.3 cm. There is an adjacent nodule me asuring 0.5 cm. Series 4 image 19 appears an area of pneumonitis in the right suprahilar region. Ther e is a 0.4 cm nodule within the left midlung. Series 4 image 32. There is a hypodense lesion measuring 2.0 cm anterior to the aortic arch. This could be a necrotic ly mph node. No enlarged hilar adenopathy is evident. No additional mediastinal adenopathy. The ascending aorta diameter at the level of the main pulmonary artery is 3.7 cm. The main pulmonary artery diameter at the bifurcation is 2.[address] ABDOMEN: Liver: Normal Spleen: Normal Pancreas: Normal Adrenal glands: The adrenal glands are normal. Gallbladder: Normal Kidneys: No masses are evident. No hydronephrosis is present. No cysts are present. Delayed images were obtained through the kidneys, which remain unremarkable. Aorta: Vascular calcification is within the aorta. Inferior vena cava: Normal. CT PELVIS: Loops of bowel within the abdomen and pelvis are normal. There are few diverticuli within the sigmoi d colon. There are loops of bowel which are incompletely distended or lack oral contrast limiting t heir evaluation. Appendix: Normal as visualized. Urinary bladder: Normal. Genitourinary structures: Prostate is prominent and contains calcification. Osseous structures: No suspicious lytic or sclerotic lesions. There is an old posterior right rib fra cture series 3 image 41 IMPRESSIONS: 1. New suspicious nodules within the bilateral upper lobe león. Metastatic disease should be consid ered. 2. New hypodense nodule within the anterior superior mediastinum suspicious for a metastatic lesion. Consider PET CT for additional evaluation. 3. Sigmoid diverticulosis without acute diverticulitis.
== END | disposition home or self-care (01) ==
LOC: RADCTMAIN 08:06
PROVIDERS: ATTEND Internal Medicine Hematology & Oncology
DX: C34.92 Malignant neoplasm of unspecified part of left bronchus or lung (principal); K57.30 Diverticulosis of large intestine without perforation or abscess without bleeding; R91.1 Solitary pulmonary nodule
CPT/HCPCS: 71260; 74177; Q9967

== ENCOUNTER → 2023-02-21 | Outpatient (CLI) | payer MEDICARE ==
--- NOTE | 2023-02-23 22:31 | PE ---
EXAMINATION TYPE: PET CT fusion skull to thigh DATE OF EXAM: 02/21/2023 COMPARISON: 01/23/[address] Prior PET/CT: 05/14/2019 HISTORY: Lung cancer TECHNIQUE: Following the intravenous administration of 12.39 mCi of F-18 FDG, whole body images are performed from the skull base to the midthigh. Images are reviewed on the computer in the coronal, a xial, and sagittal planes. Reconstructed rotating images are created on independent workstation and reviewed on the computer. A localization and attenuation correction CT is performed in conjunction with the PET scan. DLP: 334.96 mGycm SCAN: Subsequent Blood glucose: 96 mg/dL Average Mediastinum SUV: 1.32 Average Liver SUV: 1.66 FINDINGS: NECK: No abnormal uptake THORAX: There are several small nodules within the bilateral lung león. This would include the foll owing: Punctate posterior medial left upper lobe nodule, image 68, SUV 0.51 Two Nodules posterior lateral right upper lobe, image 73, SUV 0.65 and 0.36 Some thickening along the mediastinal border at the level of the ascending arch left mediastinum, lita ge 84, SUV 1.09. Nodule within the mid right upper lung field, image 78, SUV 1.28 Increased uptake within the right hilar region, image 93, SUV 2.17 ABDOMEN: No abnormal uptake PELVIS: No abnormal uptake OSSEOUS STRUCTURES: No abnormal uptake LOCALIZATION CT: Nodules correspond to the intermediate uptake identified and correlate with the new nodularity identified on the recent CT. COMPARISON: Nodules appear new from 09/29/2022 and similar to the 01/23/2023 CT IMPRESSION: 1. New areas of intermediate uptake within the bilateral lungs and mediastinum, most intense uptake i n the right hilar region suggestive for early recurrence.
== END | disposition home or self-care (01) ==
LOC: RADPETMAIN 11:22
PROVIDERS: ATTEND Internal Medicine Hematology & Oncology
DX: C34.12 Malignant neoplasm of upper lobe, left bronchus or lung (principal)
CPT/HCPCS: 78815; A9552

== ENCOUNTER → 2023-04-13 | Outpatient (CLI) | payer MEDICARE ==
--- NOTE | 2023-04-13 14:13 | CT ---
EXAMINATION TYPE: CT ChestAbdPelvis w con DATE OF EXAM: 04/13/2023 COMPARISON: CT chest abdomen pelvis 01/23/[address] 02/21/2023 HISTORY: Follow up for lung cancer. CT DLP: 666.9 mGycm CONTRAST: CT scan of the chest, abdomen and pelvis is performed with Oral Contrast and with IV Contrast, patien t injected with 100ml mL of Isovue 300. CT Chest: LUNGS: Emphysematous changes are redemonstrated with hyperinflation seen. Right upper lobe pulmonary nodules are again seen measuring about 1 cm and 5.3 mm versus 1.2 cm and 5.8 mm previously. Left uppe r lobe pulmonary nodules are again noted measuring 8 mm versus 9 mm previously and an additional nodu le left upper lobe measuring 5.2 mm versus 4.3 mm. MEDIASTINUM: Thoracic aorta is of normal caliber. The heart is not enlarged. Anterior superior medi astinal mass is redemonstrated measuring 1.6 cm versus 1.1 cm previously. HILAR STRUCTURES: No evidence for mass. Right hilar adenopathy measuring up to 1.3 cm versus 8 mm pre viously. OTHER: No significant abnormality. CONTRAST CT ABDOMEN AND PELVIS FINDINGS: LIVER/GB: No calcified gallstones. No space occupying hepatic lesion. Biliary tree is of normal ca liber. PANCREAS: No inflammation. No distinct mass. SPLEEN: No splenic enlargement. No lesion seen. ADRENALS: No nodule. No thickening. KIDNEYS/BLADDER: No hydronephrosis. No nephrolithiasis. No distinct renal mass. Urinary bladder wa ll thickening noted. Correlate for cystitis. BOWEL: Normal appendix. Nonspecific diffuse gastric wall thickening although the stomach is not ideal ly distended. In retrospect this was present previously. Normal bowel caliber. No inflammation. GENITAL ORGANS: Prostate gland enlargement with central glandular calcification. LYMPH NODES: No greater than 1cm abdominal or pelvic lymph nodes are appreciated. AORTA: No significant abnormality. OSSEOUS STRUCTURES: No significant abnormality is seen. OTHER: No significant additional abnormality is seen. IMPRESSION: 1. . Anterior superior mediastinal mass is redemonstrated measuring 1.6 cm versus 1.1 cm previously. 2. Right hilar adenopathy as noted. 3. Pulmonary nodules are redemonstrated. No new nodules identified at this time. 4. Diffuse gastric wall thickening.
== END | disposition home or self-care (01) ==
LOC: RADCTMAIN 11:45
PROVIDERS: ATTEND Internal Medicine Hematology & Oncology
DX: Z03.89 Encounter for observation for other suspected diseases and conditions ruled out (principal); C34.92 Malignant neoplasm of unspecified part of left bronchus or lung; R59.0 Localized enlarged lymph nodes; K31.89 Other diseases of stomach and duodenum; R91.8 Other nonspecific abnormal finding of lung field
CPT/HCPCS: 71260; 74177; Q9967

== ENCOUNTER → 2023-07-13 | Outpatient (CLI) | payer MEDICARE ==
--- NOTE | 2023-07-14 12:38 | CT ---
EXAMINATION TYPE: CT ChestAbdPelvis w con CT DLP: 665.4 mGycm, Automated exposure control for dose reduction was used. DATE OF EXAM: 07/13/2023 10:51 AM COMPARISON: Prior studies most recent CT chest abd pelvis 04/13/2023 CLINICAL INDICATION:Male, 63 years old with history of C34.92 LUNG CANCER; [facility], follow up lung ca Technique: Multiple axial images of the chest, abdomen, and pelvis were obtained. Two-dimensional cor onal and sagittal reconstructions were obtained. Contrast used:100 mL of Isovue 300 with IV Contrast, Oral contrast used: with Oral Contrast Findings: CHEST: LUNGS/ PLEURA: Moderate to severe pulmonary emphysematous changes redemonstrated. No large lung mass is detected. Multiple bilateral pulmonary nodules are again present. Right upper lobe slightly geomet moris shaped nodule abutting the pleura posteromedially image 19 series 4 is about 9.3 mm, not clearly seen on prior. Right upper lobe nodules image 20 are 9.5 mm and 5.9 mm, stable. Right upper lobe slig htly spiculated nodule image 23 is now 4.6 mm, was 6 mm. Left upper lobe nodules image 16 are 8.3 mm and 7.4 mm, stable. Left upper lobe nodule about 3 mm in size just anterior to the oblique fissure image 27, not clearly present on the prior. Left upper lobe 5 mm nodule image 31, stable. No acute lung consolidation, pleural effusion, pneumothorax. AIRWAY: Patent and unremarkable. HEART: Size within normal limits. Mild coronary arterial calcifications. No pericardial effusion or n odularity. MEDIASTINUM: Soft tissue density in the anterior mediastinum superiorly at the level of the aortic ar ch measures 1.5 cm image 24 series 3, was 1.6 cm before and slightly more bulky in appearance before. Otherwise, nonenlarged mediastinal nodes appear stable with no new or enlarging nodes seen. In the r ight hilum superiorly, a 1.2 cm node image 34 is stable. No new hilar adenopathy is seen. VASCULATURE: Mild mixed atherosclerotic disease of the aorta again noted without evidence of aneurys m or dissection flap. Grossly preserved enhancement of the pulmonary arteries in the limits of the ex am. Main pulmonary artery is normal in size at 2.5 cm. MUSCULOSKELETAL: Osseous structures appear unchanged. Surgical hardware in the lower cervical spine a nd left clavicle. Mild/moderate degenerative changes of the spine. No acute osseous abnormality or de structive bone lesion. Healed/healing right posterior rib fracture again noted. SOFT TISSUES/LYMPH NODES: No axillary adenopathy. LOWER NECK: No significant findings. ABDOMEN: ABDOMEN LIVER: Liver appears mildly heterogeneous without evidence of mass. Overall hepatic attenuation appea rs diminished similar to previous suggesting diffuse steatosis. GALLBLADDER AND BILE DUCTS: Unremarkable. PANCREAS: Unremarkable. SPLEEN: Unremarkable. ADRENAL GLANDS: Stable mildly thickened appearance, may be from hyperplasia. No mass. KIDNEYS AND URETERS: Kidneys enhance and excrete contrast symmetrically. There is no evidence of hydr onephrosis. PELVIS BLADDER: Similar mildly thickened appearance of the bladder wall, probably due to the enlarged prosta te. REPRODUCTIVE: Prostate again appears enlarged with coarse parenchymal calcifications, mostly in the r ight paramedian central gland. The prostate transverse diameter is 5.8 cm. Again this indents the bas e of the bladder. ABDOMEN & PELVIS STOMACH AND BOWEL: Contrast traverses the stomach and bowel loops without evidence of obstruction. No nspecific diffusely thickened appearance of the gastric wall is similar to before. The appendix appea rs normal. Contrast and stool in the colon, without acute abnormality demonstrated. However some segm ents are nondistended and not well assessed. There are multiple colonic diverticula again seen, mostl y in the sigmoid region. Relatively diffuse wall thickening throughout the sigmoid region is similar to before, more likely due to the underlying diverticular disease itself than neoplasia. PERITONEUM: No evidence of pneumoperitoneum or free fluid. VASCULATURE: Aorta and branches appear unchanged. Superior mesenteric artery again takes off the aort a with a fairly acute angle, the left renal vein appears partially compressed between this and the ao rta, and clinical correlation should be made for any signs or symptoms of nutcracker syndrome. There is again moderate mixed atherosclerotic disease throughout without evidence of AAA. Diffuse disease i n the iliac trees, without critical stenosis suggested. There is again suggestion of moderate stenosi s in the distal left external iliac artery. MUSCULOSKELETAL: Redemonstrated mild/moderate degenerative changes throughout the spine. No clearly a cute abnormality, or destructive lesion. LYMPH NODES: No gross evidence for lymphadenopathy. SOFT TISSUE/ABDOMINAL WALL: Stable and unremarkable. IMPRESSION: 1. The multiple bilateral pulmonary nodules seen previously are mostly stable, one appears slightly decreased in size. 2. There are 2 subcentimeter pulmonary nodular densities seen, not clearly present on prior. These w ill be reevaluated on subsequent follow-up to exclude emerging metastases. 3. Stable mild right hilar adenopathy. 4. Slight continued decrease in size of a soft tissue density in the anterior mediastinum, now 1.5 c m. 5. Similar appearance of diffuse gastric wall thickening. This could be correlated with upper endosc opy as clinically indicated. 6. No new or worsening abnormality in the abdomen or pelvis to suggest progressive metastatic diseas e. 7. Other chronic and likely incidental findings, as described above.
== END | disposition home or self-care (01) ==
LOC: RADCTMAIN 08:56
PROVIDERS: ATTEND Internal Medicine Hematology & Oncology
DX: C34.92 Malignant neoplasm of unspecified part of left bronchus or lung (principal); J44.9 Chronic obstructive pulmonary disease, unspecified; I10 Essential (primary) hypertension; R59.0 Localized enlarged lymph nodes; R91.8 Other nonspecific abnormal finding of lung field; J98.4 Other disorders of lung; M12.9 Arthropathy, unspecified
CPT/HCPCS: 71260; 74177; Q9967

== ENCOUNTER → 2023-11-23 | Outpatient (CLI) | payer MEDICARE ==
--- NOTE | 2023-11-26 11:13 | CT ---
EXAMINATION TYPE: CT ChestAbdPelvis w con DATE OF EXAM: 11/23/2023 INDICATION: f/u lung ca COMPARISON: CT DLP: 616.8 mGycm CONTRAST: Performed with Oral Contrast and with IV Contrast, patient injected with 100 mL of Isovue 300. TECHNIQUE: Axial images at 5 mm thick sections. Reconstructed images in the coronal plane. Delayed images through the kidneys. FINDINGS: CT CHEST: Portion of the thyroid visualized is normal. There is a 0.5 cm nodule lateral right upper lung field. There is adjacent area of increased density measures 0.7 cm. Series 5 image 19. There is a right upper lung field 0.6 cm spiculated density mid r ight lung, series 5 image 22. These appear stable from comparison There is a 0.4 cm posterior left upper lung field density, series 5 image 16. This has diminished in size from comparison Punctate density may be in the lateral posterior left upper lung field small in comparison. Some mild to moderate emphysematous changes are present. No enlarged mediastinal or hilar adenopathy is evident. The ascending aorta diameter at the level of the main pulmonary artery is 3.3 cm. The main pulmonary artery diameter at the bifurcation is 2.[address] ABDOMEN: Liver: Normal Spleen: Normal Pancreas: Normal Adrenal glands: There is mild thickening of the left adrenal gland 1.4 cm. Gallbladder: Normal Kidneys: No masses are evident. No hydronephrosis is present. No cysts are present. Delayed images were obtained through the kidneys, which remain unremarkable. Aorta: Vascular calcification is within the aorta. Inferior vena cava: Normal. CT PELVIS: Loops of bowel within the abdomen and pelvis are normal. There are loops of bowel which are incom pletely distended or lack oral contrast limiting their evaluation. Appendix: Normal as visualized. Urinary bladder: Partially decompressed, normal as visualized. Genitourinary structures: Prostate is prominent and contains calcification Osseous structures: No suspicious lytic or sclerotic lesions. Old posterior right rib fractures evide nt. As 3 image 41 IMPRESSION: 1. Scattered mid to upper lung field nodules slightly smaller than comparison. 2. No new changes to suggest metastatic disease
== END | disposition home or self-care (01) ==
LOC: RADCTMAIN 09:15
PROVIDERS: ATTEND Internal Medicine Hematology & Oncology
DX: R91.8 Other nonspecific abnormal finding of lung field (principal); E27.8 Other specified disorders of adrenal gland; C34.92 Malignant neoplasm of unspecified part of left bronchus or lung; M12.9 Arthropathy, unspecified; J44.9 Chronic obstructive pulmonary disease, unspecified; I10 Essential (primary) hypertension
CPT/HCPCS: 71260; 74177; Q9967

== ENCOUNTER → 2024-05-23 | Outpatient (CLI) | payer MEDICARE ==
--- NOTE | 2024-05-24 08:04 | CT ---
EXAMINATION TYPE: CT ChestAbdPelvis w con CT DLP: 1339 mGycm, Automated exposure control for dose reduction was used. DATE OF EXAM: 05/23/2024 11:39 AM COMPARISON: Multiple CT Chest Abdomen Pelvis With most recent 11/23/2023, PET/CT 02/21/2023 CLINICAL INDICATION:Male, 63 years old with history of C34.92 Lung Ca; [facility], lung ca Technique: Multiple axial images of the chest, abdomen, and pelvis were obtained following the intrav enous administration of 100 mL Isovue-300. Oral contrast was administered. Two-dimensional coronal an d sagittal reconstructions were obtained. Findings: CHEST: LUNGS/ PLEURA: No pleural effusion, pneumothorax, focal consolidation. Moderate centrilobular parasep marilee emphysematous changes. Development of 2 right apical nodular densities measuring 0.8 and 1.1 cm ( series 4, image 9 and 12). Stable right upper lobe 6 mm pulmonary nodule (series 4, image 19). Stable adjacent nodule measuring 6.5 mm (series 4, image 20). Additional stable adjacent 4 mm pulmonary nod ule (series 4, image 23). Stable left midlung 4.8 mm pulmonary nodule (series 4, series 3). AIRWAY: Patent and unremarkable.. HEART: Size within normal limits. No pericardial effusion. MEDIASTINUM: Stable prevascular space soft tissue density measuring 1.8 cm. No new adenopathy. VASCULATURE: No aortic aneurysm. MUSCULOSKELETAL: No acute osseous abnormalities. Partial visualization intracervical fusion hardware. Fixation plate involving the distal left clavicle with redemonstration of nonunion of the distal fra cture fragment. Removal ununited posterior right ninth rib fracture. Additional healed remote right r ib fractures. SOFT TISSUES/LYMPH NODES: Unremarkable. LOWER NECK: No significant findings. ABDOMEN: ABDOMEN LIVER: Unremarkable GALLBLADDER AND BILE DUCTS: Unremarkable. PANCREAS: Unremarkable. SPLEEN: Unremarkable. ADRENAL GLANDS: Right adrenal gland is unremarkable. Stable thickening of the left adrenal gland. KIDNEYS AND URETERS: No evidence of hydronephrosis or renal calculus. The kidneys enhance symmetrical ly. Contrast is demonstrated within both collecting systems on the delayed phase. PELVIS BLADDER: Underdistended which limits evaluation. REPRODUCTIVE: Coarse calcifications of the prostate gland are identified. Prostate gland is enlarged measuring 5.0 cm in transverse dimension. ABDOMEN & PELVIS STOMACH AND BOWEL: Stomach and duodenum are unremarkable. Sigmoid diverticulosis without evidence for acute diverticulitis. Enteric contrast reaches the distal small bowel. The appendix is within normal limits. No focal bowel wall thickening or surrounding inflammatory changes. No evidence of bowel obs truction. PERITONEUM: No evidence of pneumoperitoneum or free fluid. VASCULATURE: Mild to moderate atherosclerotic calcifications are present throughout the abdominal aor ta and its branches. No abdominal aortic aneurysm. MUSCULOSKELETAL: No acute osseous abnormalities. Multilevel degenerative disc disease most pronounced at L5-S1. LYMPH NODES: No evidence for lymphadenopathy. SOFT TISSUE/ABDOMINAL WALL: Unremarkable IMPRESSION: 1. Few stable pulmonary nodularity with 2 new right apical nodular densities from prior exam with la rgest measuring up to 1.1 cm. May represent scarring versus metastatic disease versus other etiologie s. Further evaluation with PET/CT is recommended. 2. Stable soft tissue density within the prevascular space from most recent exams but new from prior exams. Did not demonstrate FDG activity and most recent PET/CT. No new adenopathy. 3. No evidence of metastatic disease within the abdomen and pelvis. [facility], , 05/24/2024 8:01 AM
== END | disposition home or self-care (01) ==
LOC: RADCTMAIN 09:31
PROVIDERS: ATTEND Internal Medicine Hematology & Oncology
CPT/HCPCS: 71260; 74177

== ENCOUNTER → 2024-06-09 | Outpatient (CLI) | payer MEDICARE ==
--- NOTE | 2024-06-09 19:36 | PE ---
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 Images are reviewed on the computer in the coronal, axial, and sagittal planes. Reconstructed rotating images are created on independent workstation and reviewed on the computer. A non-contrast CT is performed in conjunction with the PET scan. Glucose level 81 mg/dL CT DLP: 398.89 mGycm, Automated exposure control for dose reduction was used. COMPARISON: CT 05/15/2024, PET/CT 02/21/2023, MRI: None FINDINGS: Mediastinal SUV mean is 1.76. Hepatic parenchyma SUV mean is 2.1. SKULL BASE AND NECK: Right low neck lymph node max SUV 3.4 measuring 5 mm CHEST, MEDIASTINUM, AND HILAR REGION: Suspicious uptake identified examples include: * Right pulmonary hilum lymph nodes max SUV 5.1, previously 2.3 right upper lobe pulmonary nodule Ma x SUV 2.5 measuring 8 mm which is somewhat similar to 02/21/2023. * Right apical scarring like change max SUV anteriorly 1.84 posteriorly inferiorly max SUV 2.7. * Left upper lung nodule measuring 6 mm with groundglass halo not well appreciated on prior max SUV 2.5 ABDOMEN AND PELVIS: No suspicious radiotracer activity. MUSCULOSKELETAL STRUCTURES: Uptake surrounding the right hip joint as SUV 4.2. This predominantly in the soft tissues. * Physiologic uptake within the left distal clavicle max SUV 4.4 suspected to be correlating to frac ture.r. * Physiologic uptake within left anterior rib max SUV 6.9 rib #4 findings compatible with fracture o n CT imaging. * Physiologic uptake within the left rib 6 Max SUV 2.5 corresponding to suspected fracture. OTHER CT: * Coronary atherosclerosis. * Carotid bifurcation atherosclerosis. * Colonic diverticulosis. * Prostatomegaly. * IMPRESSION: 1. Moderate emphysema with Scattered pulmonary nodules and/or parenchymal scarring. Some of these no dules now mild FDG activity. Right pulmonary nodules have not really changed in size since prior PET/ CT on 02/21/2023. Left upper lobe parenchymal scarring tethering really seen on prior maintenance inde terminate along with the right-sided nodules. Given lack of change in size favor infectious/inflammat ory and/or granulomatous change malignancy not excluded at this time. Continued surveillance with CT imaging recommended. 2. Right low neck mildly avid lymph node which is not enlarged. Attention on follow-up imaging. 3. Left anterior rib fractures with mild uptake and left distal clavicle fracture. 4. Soft tissue uptake around the right hip correlate with symptomology consider MRI. [facility], Workstation: [id number], 06/09/2024 7:33 PM
== END | disposition home or self-care (01) ==
LOC: RADPETMAIN 14:33
PROVIDERS: ATTEND Internal Medicine Hematology & Oncology
DX: S42.032A Displaced fracture of lateral end of left clavicle, initial encounter for closed fracture (principal); S22.42XA Multiple fractures of ribs, left side, initial encounter for closed fracture; C34.82 Malignant neoplasm of overlapping sites of left bronchus and lung; R91.8 Other nonspecific abnormal finding of lung field; J98.4 Other disorders of lung; K57.30 Diverticulosis of large intestine without perforation or abscess without bleeding; I65.29 Occlusion and stenosis of unspecified carotid artery; I25.10 Atherosclerotic heart disease of native coronary artery without angina pectoris
CPT/HCPCS: 78815; A9552

== ENCOUNTER → 2024-08-30 | Outpatient (CLI) | payer MEDICARE ==
--- NOTE | 2024-08-30 22:35 | CT ---
EXAMINATION TYPE: CT ChestAbdPelvis w con DATE OF EXAM: 08/30/2024 3:55 PM COMPARISON: 05/23/2024 CLINICAL INDICATION: Male, 64 years old with history of C34.92 LUNG CANCER, TECHNIQUE: CT imaging performed with sagittal coronal reformats. CT scan of the chest, abdomen and pe lvis is performed with Oral Contrast and with IV Contrast, patient injected with 100ml mL of Isovue [address] DLP: 1186 mGycm, Automated exposure control for dose reduction was used. FINDINGS: CT Chest: LUNGS: Moderate centrilobular emphysema with paraseptal component noted as well. 7 mm right upper lob e nodular density versus 1.1 cm previously. Right apical nodular density seen previously is not demon strated at this time and is felt to reflect mild parenchymal scarring. 6 mm right upper lobe pulmonar y nodule image 18 is unchanged. 8 mm nodular density right upper lobe image 19 versus 6.5 mm previous ly. 5 mm midlung left lung nodule image 32 versus 2.5 mm previously. No new nodule seen at this time MEDIASTINUM: Thoracic aorta is of normal caliber. The heart is not enlarged. No evidence for media stinal mass or adenopathy. HILAR STRUCTURES: No evidence for mass. No hilar adenopathy is appreciated. OTHER: Partial visualization intracervical fusion hardware. Fixation plate involving the distal left clavicle with redemonstration of nonunion of the distal fracture fragment. Ununited posterior right n inth rib fracture. Additional healed remote right rib fractures. CONTRAST CT ABDOMEN AND PELVIS FINDINGS: LIVER/GB: No calcified gallstones. No space occupying hepatic lesion. Biliary tree is of normal ca liber. PANCREAS: No inflammation. No distinct mass. SPLEEN: No splenic enlargement. No lesion seen. ADRENALS: No nodule. No thickening. KIDNEYS/BLADDER: No hydronephrosis. No nephrolithiasis. No disctinct renal mass. Limited distentio n urinary bladder. BOWEL: Normal appendix. Normal bowel caliber. No inflammation. GENITAL ORGANS: Prostate gland calcifications. LYMPH NODES: No greater than 1cm abdominal or pelvic lymph nodes are appreciated. AORTA: No significant abnormality. OSSEOUS STRUCTURES: Degenerative changes lumbar spine. OTHER: No significant additional abnormality is seen. IMPRESSION: 1. Right apical nodule described previously is not redemonstrated. 2. Right upper lobe pulmonary nodule slightly smaller in size. 3. Millimeter right upper lobe nodule slightly larger relative to prior at 6.5 mm. See above. [facility], , 08/30/2024 10:32 PM
== END | disposition home or self-care (01) ==
LOC: RADCTMAIN 13:48
PROVIDERS: ATTEND Internal Medicine Hematology & Oncology
DX: C34.92 Malignant neoplasm of unspecified part of left bronchus or lung (principal); J44.9 Chronic obstructive pulmonary disease, unspecified; R91.1 Solitary pulmonary nodule; I10 Essential (primary) hypertension; M12.9 Arthropathy, unspecified
CPT/HCPCS: 71260; 74177; Q9967

== ENCOUNTER 2024-10-31 15:50 | Inpatient (IN) | payer MEDICARE ==
[2024-10-31] MEDS: HYDROmorphone 1 MG/ML 1 ML SYRINGE IVP STA (16:05)
[2024-10-31] MEDS: HYDROmorphone 0.5 MG/0.5 ML SYRINGE IVP STA (16:05)
[2024-10-31] MEDS: LIDOCAINE 1% INJ 10MG/ML (20 ML MDV) SQ ONE (16:05)
[2024-10-31 16:11] LABS: Glucose,Whole Blood 227 mg/dL (70-110)
--- NOTE | 2024-10-31 16:13 | XR ---
EXAMINATION TYPE: XR pelvis AP view DATE OF EXAM: 10/31/2024 CLINICAL INDICATION: Male, 64 years old with history of Trauma, pain TECHNIQUE: A single AP view of the pelvis is obtained. COMPARISON: Prior CT August 30, 2024. FINDINGS: There is no acute fracture/dislocation evident in the pelvis. Severe axial joint space los s right hip is redemonstrated. Pubic symphysis is intact. Sacroiliac joints are preserved. Overlying vascular calcification and phleboliths are redemonstrated. IMPRESSION: There is no acute displaced fracture in the pelvis. [facility], , 10/31/2024 4:11 PM
--- NOTE | 2024-10-31 16:16 | XR ---
EXAMINATION TYPE: XR chest 1V portable DATE OF EXAM: 10/31/2024 COMPARISON: CT August 30, 2024 CLINICAL INDICATION: Male, 64 years old with history of trauma; pain TECHNIQUE: 2 frontal views of the chest are obtained. FINDINGS: There is moderate to large right lateral pneumothorax estimated 40-50%. There is backgrou nd chronic emphysematous change with diffuse right lung and increased opacity. No new mediastinal wallace ft. The cardiac silhouette size is stable and within normal limits. Surgical change of left clavicle and cervical spine are redemonstrated. There is acute displaced fracture through the right posterior ninth rib and age indeterminate nondisplaced fractures of the right posterior sixth through eighth ri bs. IMPRESSION: Moderate to large size right-sided pneumothorax without significant new mediastinal shif t. Diffuse right lung edema and/or atelectasis is noted. [facility], , 10/31/2024 4:14 PM
--- NOTE | 2024-10-31 16:18 | ED ---
General Adult HPI - General Stated complaint: Fall-Trauma Time Seen by Provider: 10/31/24 15:55 Source: patient, EMS, RN notes reviewed Mode of arrival: EMS Limitations: no limitations - History of Present Illness Initial comments: Patient is a 64-year-old male present to the emergency department following a fall. Incident occurred prior to arrival. Patient fell off the roof off the barn, approximately 20 to 25 feet. Patient does recall the incident and does not believe she lost consciousness. Patient reportedly was somewhat confused by family. Patient does state that he does feel short of breath. Patient does have remote history of lung cancer which is not an active disease or diagnosis. Patient also complains of some low back and hip discomfort. - Related Data Home Medications Medication Instructions Recorded Confirmed Cyclobenzaprine [Flexeril] 10 mg PO HS PRN 06/09/16 10/31/24 Hydrocodone/Acetaminophen [[place] 1 tab PO DAILY 06/09/16 10/31/24 7.5-325] Ibuprofen [Motrin] 800 mg PO TID PRN 06/09/16 10/31/24 Sertraline [Zoloft] 150 mg PO DAILY 04/20/19 10/31/24 Budesonide/Glycopyr/Formoterol 2 puff INHALATION DIRECTED 07/16/21 10/31/24 [Breztri Aerosphere Inhaler] Atorvastatin [Lipitor] 40 mg PO DAILY 10/31/24 10/31/24 Losartan [Cozaar] 25 mg PO DAILY 10/31/24 10/31/24 Allergies Allergy/AdvReac Type Severity Reaction Status Date / Time codeine AdvReac GI upset Verified 10/31/24 16:27 Review of Systems ROS Statement: Those systems with pertinent positive or pertinent negative responses have been documented in the HPI. ROS Other: All systems not noted in ROS Statement are negative. Constitutional: Denies: fever Eyes: Denies: eye pain ENT: Denies: ear pain Respiratory: Reports: as per HPI, dyspnea Cardiovascular: Denies: chest pain Gastrointestinal: Denies: abdominal pain Musculoskeletal: Reports: as per HPI Past Medical History Past Medical History: COPD, Hypertension Additional Past Medical History / Comment(s): past hx. of a few "blackouts" per pt., never found anything wrong or cause-nothing since, lung nodule, recent PET scan showed some enlarged lymph nodes per pt. History of Any Multi-Drug Resistant Organisms: None Reported Past Surgical History: Adenoidectomy, Back Surgery, Tonsillectomy Additional Past Surgical History / Comment(s): CERVICAL PLATES AND SCREWS, CLAVICLE, LEFT KNEE. 04/21/19 thoroscopy with Bx Past Anesthesia/Blood Transfusion Reactions: No Reported Reaction Past Alcohol Use History: None Reported - Past Family History Sister(s) Family Medical History: Cancer Additional Family Medical History / Comment(s): breast General Exam Limitations: no limitations General appearance: alert Head exam: Present: atraumatic Eye exam: Present: normal appearance Neck exam: Present: normal inspection (C-collar is in place). Absent: tenderness Respiratory exam: Present: normal lung sounds bilaterally Cardiovascular Exam: Present: regular rate, normal rhythm GI/Abdominal exam: Present: soft, tenderness (Mild to moderate tenderness upper abdomen) Extremities exam: Present: tenderness (Mild left proximal humerus) Back exam: Present: vertebral tenderness (Mild lumbar) Neurological exam: Present: alert, CN II-XII intact. Absent: motor sensory deficit Expanded Neurological exam: Present: protecting the airway Patient oriented to: Present: person, place. Absent: time (October 2023) Speech: Present: fluid speech Cranial nerves: EOM's Intact: Normal Sensory exam: Upper Extremity Light Touch: Normal, Lower Extremity Light Touch: Normal Motor strength exam: RUE: 5, LUE: 5, RLE: 5, LLE: 5 Eye Response: (4) open spontaneously Motor Response: (6) obeys commands Verbal Response: (4) confused conversation Psychiatric exam: Present: normal affect, normal mood Skin exam: Present: abrasion (Left forearm) Course Vital Signs 10/31/24 10/31/24 15:52 16:27 Temperature 97.5 F L Pulse Rate 72 Respiratory 20 Rate Blood Pressure 124/82 O2 Sat by Pulse 75 L 98 Oximetry EKG Findings - EKG Results: EKG: interpreted by ERMD, sinus rhythm, normal axis, normal QRS, normal ST/T Procedures - Chest Tube Insertion Consent Obtained: verbal consent Side of Procedure: right Indication: Pneumothorax Placed on monitor/pulse oximetry: Yes Site Prep: Povidone-Iodine Local Anesthesia: Lidocaine 1% Amount (mLs): 5 Insertion Site: 5th Intercostal Space, Midaxillary Scalpel: #10 Open into Pleural Space Using: Hemostats Tube Size (Belarusian): 28 Returns: Air Sutured in Place: Yes Attached to Suction: Yes Type of Suction: Pleuravac Repeat X-ray Results: Lung Inflated Patient Tolerated Procedure: well, no complications Medical Decision Making - Medical Decision Making Case was discussed with Dr. Pritchett who will consult and did review the films. He recommends only toe touching weightbearing on the right Case also again discussed with Dr. Puga who will admit covering trauma call. Decision to admit at 1755. Was pt. sent in by a medical professional or institution (, PA, [facility], urgent care, hospital, or [facility]...) When possible be specific @ -No Did you speak to anyone other than the patient for history (EMS, parent, family, police, friend...)? What history was obtained from this source @ -EMS helps provide history of injury and transportation Did you review nursing and triage notes (agree or disagree)? Why? @ -I reviewed and agree with nursing and triage notes Were old charts reviewed (outside hosp., previous admission, EMS record, old EKG, old radiological studies, urgent care reports/EKG's, [facility] records)? Report findings @ -No old charts were reviewed Differential Diagnosis (chest pain, altered mental status, abdominal pain women, abdominal pain men, vaginal bleeding, weakness, fever, dyspnea, syncope, headache, dizziness, GI bleed, back pain, seizure, CVA, palpatations, mental health, musculoskeletal)? @ -Differential Musculoskeletal Muscular strain, contusion, ligament sprain, fracture, arthritis, septic arthritis, bursitis, cellulitis, muscle spasm, nerve compression, DVT, arterial occlusion, herpes zoster, electrolyte abnormality, tumor.... This is not meant to be in all inclusive list EKG interpreted by me (3pts min.). @ -As above X-rays interpreted by me (1pt min.). @ -Chest x-ray shows large right pneumothorax, 50%. X-ray of the pelvis shows inferior pubic rami fracture. X-ray left humerus shows without fracture CT interpreted by me (1pt min.). @ -CT scan brain and cervical spine without acute traumatic abnormality. CT chest with chest tube present. Rib fracture. CT abdomen pelvis with pelvic fractures including inferior pubic rami and superior pubic rami on the right with extension to the acetabulum. In addition there is sacral fracture and transverse process of L4-L5. Small hemorrhage U/S interpreted by me (1pt. min.). @ -None done What testing was considered but not performed or refused? (CT, X-rays, U/S, labs)? Why? @ -None What meds were considered but not given or refused? Why? @ -None Did you discuss the management of the patient with other professionals (professionals i.e. , PA, [facility], lab, RT, psych nurse, executive secretary social welfare, sustainable agriculture faculty, teacher, flight communications officer, case management associate)? Give summary @ -See above Was smoking cessation discussed for >3mins.? @ -No Was critical care preformed (if so, how long)? @ -45 minutes critical care time Were there social determinants of health that impacted care today? How? (Homelessness, low income, unemployed, alcoholism, drug addiction, transportation, low edu. Level, literacy, decrease access to med. care, skilled nursing, rehab)? @ -No Was there de-escalation of care discussed even if they declined (Discuss DNR or withdrawal of care, Hospice)? DNR status @ -No What co-morbidities impacted this encounter? (DM, HTN, Smoking, COPD, CAD, Cancer, CVA, ARF, Chemo, Hep., AIDS, mental health diagnosis, sleep apnea, morbid obesity)? @ -None Was patient admitted / discharged? Hospital course, mention meds given and route, prescriptions, significant lab abnormalities, going to OR and other pertinent info. @ -Patient presents with fall through the roof that collapsed on him. Patient fell 20 to 25 feet. Patient with 50% pneumothorax on the right resolved with ch est tube. Patient also has pelvic fractures. Case discussed with trauma surgeon and orthopedic trauma and patient will be admitted. Patient reevaluated. Patient and family updated. Admission orders written. Undiagnosed new problem with uncertain prognosis? @ -No Drug Therapy requiring intensive monitoring for toxicity (Heparin, Nitro, Insulin, Cardizem)? @ -No Were any procedures done? @ -Chest tube, see above Diagnosis/symptom? @ -Pneumothorax, pelvic fracture, fall, rib fracture Acute, or Chronic, or Acute on Chronic? @ -Acute, acute, acute, acute Uncomplicated (without systemic symptoms) or Complicated (systemic symptoms)? @ -Default Side effects of treatment? @ -No Exacerbation, Progression, or Severe Exacerbation? @ -No Poses a threat to life or bodily function? How? (Chest pain, [place], [place], pneumonia, PE, COPD, DKA, ARF, appy, cholecystitis, CVA, Diverticulitis, Homicidal, Suicidal, threat to staff... and all critical care pts) @ -Threat to pulmonary and musculoskeletal function - Lab Data Result diagrams: 10/31/24 16:15 10/31/24 16:15 Lab Results 10/31/24 10/31/24 10/31/24 Range/Units 15:58 16:00 16:02 WBC (4.50-10.00) 10*3/uL RBC (4.40-5.60) 10*6/uL Hgb (13.0-17.0) g/dL Hct (39.6-50.0) % MCV (80.0-97.0) fL MCH (27.0-32.0) pg MCHC (32.0-37.0) g/dL RDW (11.5-14.5) % Plt Count (140-440) 10*3/uL MPV (9.5-12.2) fL Neutrophils % % Lymphocytes % % Monocytes % % Eosinophils % % Basophils % % Neutrophils # (1.80-7.70) 10*3/uL Lymphocytes # (0.90-5.00) 10*3/uL Monocytes # (0.20-1.00) 10*3/uL Eosinophils # (0.04-0.35) 10*3/uL Basophils # (0.00-0.10) 10*3/uL PT (10.0-12.5) sec INR (<1.2) APTT (22.0-30.0) sec Sodium (137-145) mmol/L Potassium (3.5-5.1) mmol/L Chloride (98-107) mmol/L Carbon Dioxide (22-30) mmol/L Anion Gap mmol/L BUN (9-20) mg/dL Creatinine (0.66-1.25) mg/dL Est GFR (CKD-EPI)AfAm (>60 ml/min/1.73 sqM) Est GFR (CKD-EPI)NonAf (>60 ml/min/1.73 sqM) Glucose (74-99) mg/dL POC Glucose (mg/dL) 227 H (70-110) mg/dL POC Glu [employer] ID Reji Nagy Plasma Lactic Acid Larry (0.7-2.0) mmol/L Calcium (8.4-10.2) mg/dL Total Bilirubin (0.2-1.3) mg/dL AST (17-59) U/L ALT (4-49) U/L Alkaline Phosphatase (38-126) U/L Total Protein (6.3-8.2) g/dL Albumin (3.5-5.0) g/dL Serum Alcohol mg/dL Blood Type A Positive Blood Type Confirm A Positive Blood Type Recheck No Previous Record Bld Type Recheck Status CABO Indicated Antibody Screen NEGATIVE Spec Expiration Date 11/03/2024230110/31/24 10/31/24 10/31/24 Range/Units 16:15 16:15 16:15 WBC 22.37 H (4.50-10.00) 10*3/uL RBC 5.21 (4.40-5.60) 10*6/uL Hgb 16.5 (13.0-17.0) g/dL Hct 47.0 (39.6-50.0) % MCV 90.2 (80.0-97.0) fL MCH 31.7 (27.0-32.0) pg MCHC 35.1 (32.0-37.0) g/dL RDW 14.1 (11.5-14.5) % Plt Count 224 (140-440) 10*3/uL MPV 9.1 L (9.5-12.2) fL Neutrophils % 88.0 % Lymphocytes % 5.5 % Monocytes % 3.7 % Eosinophils % 0.3 % Basophils % 0.4 % Neutrophils # 19.68 H (1.80-7.70) 10*3/uL Lymphocytes # 1.23 (0.90-5.00) 10*3/uL Monocytes # 0.82 (0.20-1.00) 10*3/uL Eosinophils # 0.07 (0.04-0.35) 10*3/uL Basophils # 0.09 (0.00-0.10) 10*3/uL PT 11.5 (10.0-12.5) sec INR 1.0 (<1.2) APTT 22.4 (22.0-30.0) sec Sodium 134 L (137-145) mmol/L Potassium 4.0 (3.5-5.1) mmol/L Chloride 97 L (98-107) mmol/L Carbon Dioxide 25 (22-30) mmol/L Anion Gap 12 mmol/L BUN 22 H (9-20) mg/dL Creatinine 0.91 (0.66-1.25) mg/dL Est GFR (CKD-EPI)AfAm >90 (>60 ml/min/1.73 sqM) Est GFR (CKD-EPI)NonAf 89 (>60 ml/min/1.73 sqM) Glucose 221 H (74-99) mg/dL POC Glucose (mg/dL) (70-110) mg/dL POC Glu [employer] Specialist ID Plasma Lactic Acid Larry (0.7-2.0) mmol/L Calcium 10.4 H (8.4-10.2) mg/dL Total Bilirubin 0.9 (0.2-1.3) mg/dL AST 74 H (17-59) U/L ALT 58 H (4-49) U/L Alkaline Phosphatase 103 (38-126) U/L Total Protein 8.2 (6.3-8.2) g/dL Albumin 4.8 (3.5-5.0) g/dL Serum Alcohol <10 mg/dL Blood Type Blood Type Confirm Blood Type Recheck Bld Type Recheck Status Antibody Screen Spec Expiration Date 10/31/24 Range/Units 16:15 WBC (4.50-10.00) 10*3/uL RBC (4.40-5.60) 10*6/uL Hgb (13.0-17.0) g/dL Hct (39.6-50.0) % MCV (80.0-97.0) fL MCH (27.0-32.0) pg MCHC (32.0-37.0) g/dL RDW (11.5-14.5) % Plt Count (140-440) 10*3/uL MPV (9.5-12.2) fL Neutrophils % % Lymphocytes % % Monocytes % % Eosinophils % % Basophils % % Neutrophils # (1.80-7.70) 10*3/uL Lymphocytes # (0.90-5.00) 10*3/uL Monocytes # (0.20-1.00) 10*3/uL Eosinophils # (0.04-0.35) 10*3/uL Basophils # (0.00-0.10) 10*3/uL PT (10.0-12.5) sec INR (<1.2) APTT (22.0-30.0) sec Sodium (137-145) mmol/L Potassium (3.5-5.1) mmol/L Chloride (98-107) mmol/L Carbon Dioxide (22-30) mmol/L Anion Gap mmol/L BUN (9-20) mg/dL Creatinine (0.66-1.25) mg/dL Est GFR (CKD-EPI)AfAm (>60 ml/min/1.73 sqM) Est GFR (CKD-EPI)NonAf (>60 ml/min/1.73 sqM) Glucose (74-99) mg/dL POC Glucose (mg/dL) (70-110) mg/dL POC Glu [employer] Specialist ID Plasma Lactic Acid Larry 2.5 H* (0.7-2.0) mmol/L Calcium (8.4-10.2) mg/dL Total Bilirubin (0.2-1.3) mg/dL AST (17-59) U/L ALT (4-49) U/L Alkaline Phosphatase (38-126) U/L Total Protein (6.3-8.2) g/dL Albumin (3.5-5.0) g/dL Serum Alcohol mg/dL Blood Type Blood Type Confirm Blood Type Recheck Bld Type Recheck Status Antibody Screen Spec Expiration Date Critical Care Time Critical Care Time: Yes Disposition Clinical Impression: Fall Disposition: ADMITTED IP TO THIS HOSP Is patient prescribed a controlled substance at d/c from ED?: No Referrals: Magdalena Sarmiento MD [Primary Care Provider] - 1-2 days Time of Disposition: 18:06
[2024-10-31 16:19] LABS: Basophils # (A) 0.09 10*3/uL (0.00-0.10); Basophils % (A) 0.4 %; Eosinophils # (A) 0.07 10*3/uL (0.04-0.35); Eosinophils % (A) 0.3 %; HGB 16.5 g/dL (13.0-17.0); Lymphocytes # (A) 1.23 10*3/uL (0.90-5.00); Lymphocytes % (A) 5.5 %; MCH 31.7 pg (27.0-32.0); MCHC 35.1 g/dL (32.0-37.0); MCV 90.2 fL (80.0-97.0); Mean Platelet Volume 9.1 fL (9.5-12.2); Monocytes # (A) 0.82 10*3/uL (0.20-1.00); Monocytes % (A) 3.7 %; Neutrophils # (A) 19.68 10*3/uL (1.80-7.70); Platelet Count 224 10*3/uL (140-440); RBC 5.21 10*6/uL (4.40-5.60); RDW 14.1 % (11.5-14.5); WBC 22.37 10*3/uL (4.50-10.00)
[2024-10-31] MEDS: DIPH,PERTUS(ACELL)TETVAC-LF 0.5 ML VIAL IM ONE (16:20)
--- NOTE | 2024-10-31 16:32 | XR ---
EXAMINATION TYPE: XR chest 1V portable DATE OF EXAM: 10/31/2024 COMPARISON: Chest x-ray earlier today. CLINICAL INDICATION: Male, 64 years old with history of Chest tube placement; TECHNIQUE: 3-D portable frontal supine views of the chest are obtained. FINDINGS: There is significant improvement in right-sided pneumothorax after chest tube placement. S mall residual pneumothorax in the right lung base is present. Increased opacity right lung base could reflect atelectasis. Left lung is clear cardiac silhouette size stable and within normal limits. Rosemary gical change left clavicle and cervical spine is partially imaged. Several posterior right mid rib fr actures are redemonstrated. IMPRESSION: Marked improvement in right-sided pneumothorax after chest tube placement. [facility], , 10/31/2024 4:30 PM
[2024-10-31 16:45] LABS: Carbon Dioxide 25 mmol/L (22-30); Chloride 97 mmol/L (98-107); Glucose 221 mg/dL (74-99); Sodium 134 mmol/L (137-145)
[2024-10-31 16:46] LABS: ALT 58 U/L (4-49); AST 74 U/L (17-59); African American GFR (CKD) >90 (>60 ml/min/1.73 sqM); Albumin 4.8 g/dL (3.5-5.0); Alcohol <10 mg/dL; Alkaline Phosphatase 103 U/L (38-126); Anion Gap 12 mmol/L; Blood Urea Nitrogen 22 mg/dL (9-20); Calcium 10.4 mg/dL (8.4-10.2); Non-African American GFR(CKD) 89 (>60 ml/min/1.73 sqM); Total Bilirubin 0.9 mg/dL (0.2-1.3); Total Protein 8.2 g/dL (6.3-8.2)
[2024-10-31 16:50] LABS: Partial Thromboplastin Time 22.4 sec (22.0-30.0); Prothrombin Time 11.5 sec (10.0-12.5)
--- NOTE | 2024-10-31 16:59 | CT ---
EXAMINATION TYPE: CT brain moe wo con DATE OF EXAM: 10/31/2024 COMPARISON: Prior CT brain June 09, 2016 CLINICAL INDICATION: Male, 64 years old with history of trauma, Fell 25-30 ft off of barn roof. No th inners. AMS., Neck pain. TECHNIQUE: CT scan of the head and cervical spine are performed without contrast. CT DLP: Combined DLP of 2460.6 mGycm. Automated Exposure Control for Dose Reduction was Utilized. FINDINGS: There is no acute intracranial hemorrhage or midline shift identified. Mild to moderate v entricular and sulcal prominence is present. There is moderate to severe confluent areas of low inten sity in the deep and periventricular white matter now present. Findings are nonspecific but most like ly on the basis of products of chronic small ischemic change in patient of this age. The calvarium is intact. The globes are intact and the visualized sinuses are clear. Cervical spine is visualized in its entirety from C1 through upper thoracic levels and demonstrates a nterior fusion plate with metallic disc material at C4-C7 levels without evidence of acute fracture o r dislocation. Prevertebral soft tissue appears within normal limits. The C1-C2 articulation is wit hin normal limits on the coronal images. Vertebral bodies and disc space heights are within normal li mits above the postsurgical levels. Spinal canal is preserved. Axial images show multilevel vertebral facet degenerative changes bilaterally. There is mild calcifie d plaque bilateral carotid bulb level. Thyroid gland appears within normal limits. Lung apices show e mphysematous change. There is right-sided chest tube partially imaged. Surgical change to left clavic le is partially imaged. IMPRESSION: 1. There is no acute fracture or dislocation evident in the cervical spine. 2. No acute intracranial hemorrhage or midline shift is seen. [facility], , 10/31/2024 4:57 PM
--- NOTE | 2024-10-31 17:43 | CT ---
EXAMINATION TYPE: CT ChestAbdPelvis w con DATE OF EXAM: 10/31/2024 COMPARISON: Prior CT August 30, 2024 CLINICAL INDICATION: Male, 64 years old with history of trauma, Fell 25-30 ft off of barn roof. No th inners. AMS., TECHNIQUE: CT scan of the thorax, abdomen and pelvis is performed with IV Contrast, patient injected with 100 ml mL of Isovue 300. CT DLP: Combined DLP of 2460.6 mGycm. Automated Exposure Control for Dose Reduction was Utilized. FINDINGS: LUNGS: At least Moderate underlying emphysematous change is redemonstrated. There is tiny residual an terior inferior right-sided pneumothorax despite chest tube placement. There is dependent right lung consolidation and/or atelectasis. Small bilateral pulmonary nodules are redemonstrated. Right upper l obe subcentimeter nodules are grossly stable. HEART: Size within normal limits. Mild to moderate coronary artery calcifications are redemonstrated. MEDIASTINUM: There are no greater than 1 cm hilar or mediastinal lymph nodes. No pericardial effusi on is seen. LIVER/GB: No significant abnormality is appreciated. PANCREAS: No significant abnormality is seen. SPLEEN: No significant abnormality is seen. ADRENALS: No significant abnormality is seen. KIDNEYS: No significant abnormality is seen. BOWEL: No significant abnormality is seen. GENITAL ORGANS: No gross abnormality seen. LYMPH NODES: No greater than 1cm abdominal or pelvic lymph nodes are appreciated. OSSEOUS STRUCTURES: Persistent old fracture of the posterior right ninth rib axial image 41. Difficul ty identifying the new acute right-sided rib fractures. There is new deep subcutaneous emphysema eric g the posterior lateral aspect of the right lower ribs. Probable acute nondisplaced fracture of the r ight posterolateral 10th rib with subtle step off axial image 53. Avascular necrosis with sclerosis and fragmentation of the superior aspect of the right femoral head is redemonstrated. There is acute nondisplaced linear fracture through the right aspect of the upper sacrum coronal images 93 through 97. There is acute comminuted slightly displaced fracture to the lat eral aspect of the right superior pelvic ramus extending into the right acetabulum involving the ante rior wall coronal image images 72 through 75. There is acute comminuted displaced fracture through th e right inferior pelvic ramus. There is acute displaced fracture through the right L4 and L5 transver se processes. There is new asymmetric hemorrhage into the right posterior presacral muscle axial imag e 106 and superior right lateral deep pelvic muscles axial image 113. There is new presacral hematoma . OTHER: Moderate calcified plaque of the aorta extends into branch vessels. IMPRESSION: 1. Tiny residual anterior right basilar pneumothorax with right-sided chest tube in place. There is deep subcutaneous emphysema along the posterior lateral aspect of the right lower ribs with suspected acute nondisplaced fracture of the right posterior lateral 10th rib. Additional acute nondisplaced o r displaced right-sided rib fractures are not clearly seen. Old malunion fracture of the posterior ri ght ninth rib is redemonstrated. 2. Acute comminuted fractures of the right superior and inferior pelvic rami and right upper sacrum a long with right L4 and L5 transverse processes. Right superior pelvic rami fracture extends into the anterior wall of the acetabulum. 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 Th ere is small amount of acute hemorrhage into the right pelvis and presacral region noted. [facility], , 10/31/2024 5:41 PM
[2024-10-31] MEDS ORDERED: NALOXONE 0.4 MG/ML 1 ML VIAL IV PRN (18:06)
[2024-10-31] MEDS ORDERED: ACETAMINOPHEN TAB 325 MG TAB PO PRN (18:06)
[2024-10-31] MEDS ORDERED: ONDANSETRON 4 MG/2 ML VIAL IVP PRN (18:06)
--- NOTE | 2024-10-31 18:06 | XR ---
EXAMINATION TYPE: XR humerus LT DATE OF EXAM: 10/31/2024 CLINICAL INDICATION: Male, 64 years old with history of trauma, pain TECHNIQUE: Two views of the left humerus are obtained. COMPARISON: None. FINDINGS: There is no acute fracture or dislocation seen in the left humerus. Surgical change left c lavicle is partially imaged. The overlying soft tissue appears within normal limits. IMPRESSION: No acute fracture or dislocation is evident in the left humerus. [facility], , 10/31/2024 6:03 PM
[2024-10-31 18:08] LABS: Amphetamine Screen,Urine Not Detected (NotDetected); Barbiturate Screen,Urine Not Detected (NotDetected); Benzodiazepines Screen,Urine Not Detected (NotDetected); Cocaine Screen,Urine Not Detected (NotDetected); Methadone Screen, Urine Not Detected (NotDetected); Opiate Screen,Urine Detected (NotDetected); Oxycodone Screen, Urine Not Detected (NotDetected); Phencyclidine Screen,Urine Not Detected (NotDetected); Tricyclic Antidepressant,Urine Detected (NotDetected); Urn Cannabinoid Scrn Detected (NotDetected)
[2024-10-31] MEDS: MORPHINE SULFATE 2 MG/ML SYRINGE IVP PRN (18:39)
[2024-10-31 19:19] LABS: Appearance,Urine Cloudy (Clear); Bilirubin,Urine Negative (Negative); Blood,Urine Small (Negative); Color,Urine Yellow; Glucose,Urine (UA) 1+ (Negative); Granular Casts,Urine 25 /lpf (0); Hyaline Casts,Urine 3 /lpf (0-2); Ketones,Urine Negative (Negative); Leukocyte Esterase,Urine Negative (Negative); Mucus,Urine Rare /hpf; Nitrite,Urine Negative (Negative); Protein,Urine 2+ (Negative); RBC,Urine 9 /hpf (0-5); Squamous Epithelial Cell,Urine 1 /hpf (0-4); Urobilinogen,Urine <2.0 mg/dL (<2.0); WBC,Urine 3 /hpf (0-5)
[2024-10-31 19:31] LABS: Specific Gravity,Urine 1.047 (1.001-1.035)
[2024-10-31] MEDS: FAMOTIDINE 20 MG TAB PO SCH (21:25)
[2024-11-01] MEDS ORDERED: ALBUTEROL NEBULIZED 2.5 MG/3 ML INHALATION PRN (02:16)
[2024-11-01] MEDS: MORPHINE SULFATE 4 MG/ML SYRINGE IVP PRN (02:17)
[2024-11-01] MEDS: KETOROLAC 15 MG/ML 1 ML VIAL IVP STA (02:54)
--- NOTE | 2024-11-01 03:42 | P.CNPUL ---
History of Present Illness Consult date: 11/01/24 Requesting physician: Blair Cedillo Reason for consult: other (Pneumothorax and pulmonary contusion) Chief complaint: Fall History of present illness: Patient is a 64-year-old male with past medical history significant for hypertension, COPD, and lung cancer status post chemo/radiation. Presents emergency department yesterday afternoon by EMS after falling from the roof of a barn. He fell approximately 20 to 25 feet. May have briefly lost consciousness. The trauma team was alerted and evaluated this patient. CT of the brain and C-spine did not show any acute fracture or dislocation of the cervical spine. No acute intracranial hemorrhage or midline shift. Patient did have a right-sided pneumothorax, and is status post right-sided chest tube insertion. Follow-up chest x-ray showing good aeration of the right lung. Follow-up CT of the chest, abdomen, pelvis with contrast showed a tiny residual anterior right basilar pneumothorax with an appropriate placed right-sided chest tube. Probable pulmonary contusion at the right base. Subcutaneous emphysema along the posterior lateral aspect of the right lower ribs with suspected acute nondisplaced fracture of the right posterior lateral 10th rib. Old malunion fracture of the right posterior right ninth rib redemonstrated. Acute comminuted fracture of the right superior and inferior pelvic rami and right upper sacrum along with right L4 and L5 transverse processes. Right superior pelvic rami fracture extends into the anterior wall of the aceta bellum. 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 There is a small amount of acute hemorrhage in the anterior right pelvis and presacral region. No intra-abdominal traumatic injuries noted. No immediate surgical intervention was recommended. CBC with a WBC count of 22, hemoglobin is stable at 16.5 g/dL, platelets 224. CMP: Sodium 134, potassium 4, chloride 97 calcium bicarb 25, BUN 22, creatinine 0.91, glucose 221. Lactic 1.2. LFTs mildly fatuma vated. Urinalysis with small amount of microscopic hematuria and proteinuria. Urine toxicology screen positive for opiates, TCAs, and marijuana. Alcohol level less than 10. Patient currently being evaluated in the emergency department. He is alert and nondistressed. Right chest tube remains in place and is to suction at -20 cm H2O. No airleak noted. No significant drainage in chamber of the atrium. Does endorse some right-sided chest pain at the chest tube insertion site. On 6 L/min nasal cannula. Shallow breathing. A combination of analgesics are ordered including morphine IV push, [place], Tylenol. Patient will need an incentive spirometer. Neurovascular status of lower extremities intact. No saddle anesthesia or loss of bowel or bladder control. Current vital signs: Heart rate 85 bpm, blood pressure 151/104 mmHg, nontachypneic, SpO2 recorded at 96% on 6 L/min nasal cannula. Review of Systems REVIEW OF SYSTEMS: CONSTITUTIONAL: Denies any recent significant weight loss or weight gain. EYES: Denies change in vision. EARS, NOSE, MOUTH, THROAT: Denies headaches, denies sore throat. CARDIOVASCULAR: Denies palpitations or syncopal episodes. RESPIRATORY: Denies shortness of breath, cough, congestion or hemoptysis. Endorses pain with deep inspiration at the chest tube insertion site. GASTROINTESTINAL: Denies change in appetite, abdominal pain, nausea and vomiting, or diarrhea GENITOURINARY: Denies hematuria, denies infections. MUSKULOSKELETAL: Denies pain, denies swelling. INTEGUMENTARY: Denies rash, denies eczema. NEUROLOGICAL: Denies recent memory loss, no recent seizure activity. PSYCHIATRIC: Denies anxiety, denies depression. HEMATOLOGIC/LYMPHATIC: Denies anemia, denies enlarged lymph node Past Medical History Past Medical History: COPD, Hypertension Additional Past Medical History / Comment(s): past hx. of a few "blackouts" per pt., never found anything wrong or cause-nothing since, lung nodule, recent PET scan showed some enlarged lymph nodes per pt. History of Any Multi-Drug Resistant Organisms: None Reported Past Surgical History: Adenoidectomy, Back Surgery, Tonsillectomy Additional Past Surgical History / Comment(s): CERVICAL PLATES AND SCREWS, CLAVICLE, LEFT KNEE. 04/21/19 thoroscopy with Bx Past Anesthesia/Blood Transfusion Reactions: No Reported Reaction Past Alcohol Use History: None Reported - Past Family History Sister(s) Family Medical History: Cancer Additional Family Medical History / Comment(s): breast Medications and Allergies Home Medications Medication Instructions Recorded Confirmed Type Cyclobenzaprine [Flexeril] 10 mg PO HS PRN 06/09/16 10/31/24 History Hydrocodone/Acetaminophen [[place] 1 tab PO DAILY 06/09/16 10/31/24 History 7.5-325] Ibuprofen [Motrin] 800 mg PO TID PRN 06/09/16 10/31/24 History Sertraline [Zoloft] 150 mg PO DAILY 04/20/19 10/31/24 History Budesonide/Glycopyr/Formoterol 2 puff INHALATION DIRECTED 07/16/21 10/31/24 History [Breztri Aerosphere Inhaler] Atorvastatin [Lipitor] 40 mg PO DAILY 10/31/24 10/31/24 History Losartan [Cozaar] 25 mg PO DAILY 10/31/24 10/31/24 History Allergies Allergy/AdvReac Type Severity Reaction Status Date / Time codeine AdvReac GI upset Verified 10/31/24 16:27 Physical Exam Vitals: Vital Signs Temp Pulse Resp BP Pulse Ox 11/01/24 01:30 85 19 160/123 95 11/01/24 00:30 86 18 151/104 96 10/31/24 23:30 85 18 149/99 95 10/31/24 22:30 82 18 150/98 95 10/31/24 21:30 89 18 153/89 95 10/31/24 20:30 83 18 144/95 95 10/31/24 18:50 97.6 F 77 20 138/71 95 10/31/24 16:27 97.5 F L 98 10/31/24 15:52 72 20 124/82 75 L Intake and Output 10/31/24 10/31/24 11/01/24 14:59 22:59 06:59 Other: Weight 79.379 kg GENERAL EXAM: Alert, 64-year-old male, fairly comfortable in no apparent distress. HEAD: Normocephalic and atraumatic EYES: Normal reaction of pupils, equal size. NOSE: Clear with pink turbinates. THROAT: No erythema or exudates. NECK: No masses, no JVD. CHEST: Right-sided chest tube in place, to suction at -20 cm H2O. No airleak. No significant drainage in atrium. No crepitus. No significant subcutaneous emphysema noted clinically. LUNGS: Equal air entry with no crackles, wheeze, rhonchi or dullness. On 6 L/min nasal cannula. No conversational dyspnea or accessory muscle use.. CVS: S1 and S2 normal with no audible murmur, regular rhythm. No extra heart sounds ABDOMEN: Abdomen is flat, no unusual bruising or flank bruising, active bowel sounds, no hepatosplenomegaly, no guarding or rigidity. SPINE: No scoliosis or deformity SKIN: No rashes CENTRAL NERVOUS SYSTEM: No focal deficits, tone is normal in all 4 extremities. EXTREMITIES: There is no peripheral edema, clubbing, or cyanosis. Peripheral pulses are intact. Results - Laboratory Findings CBC and BMP: 10/31/24 16:15 10/31/24 16:15 PT/INR, D-dimer PT 11.5 sec (10.0-12.5) 10/31/24 16:15 INR 1.0 (<1.2) 10/31/24 16:15 Abnormal lab findings: Abnormal Labs 10/31/24 10/31/24 10/31/24 16:00 16:15 16:15 WBC 22.37 H MPV 9.1 L Neutrophils # 19.68 H Sodium 134 L Chloride 97 L BUN 22 H Glucose 221 H POC Glucose (mg/dL) 227 H Plasma Lactic Acid Larry Calcium 10.4 H AST 74 H ALT 58 H Ur Specific [place] Urine Protein Urine Glucose (UA) Urine Blood Urine RBC Hyaline Casts Urine Mucus Urine Opiates Screen U Tricyclic Antidepress U Marijuana (THC) Screen 10/31/24 10/31/24 10/31/24 16:15 17:14 17:14 WBC MPV Neutrophils # Sodium Chloride BUN Glucose POC Glucose (mg/dL) Plasma Lactic Acid Larry 2.5 H* Calcium AST ALT Ur Specific [place] 1.047 H Urine Protein 2+ H Urine Glucose (UA) 1+ H Urine Blood Small H Urine RBC 9 H Hyaline Casts 3 H Urine Mucus Rare H Urine Opiates Screen Detected H U Tricyclic Antidepress Detected H U Marijuana (THC) Screen Detected H 10/31/24 18:20 WBC MPV Neutrophils # Sodium Chloride BUN Glucose POC Glucose (mg/dL) Plasma Lactic Acid Larry 4.0 H* Calcium AST ALT Ur Specific [place] Urine Protein Urine Glucose (UA) Urine Blood Urine RBC Hyaline Casts Urine Mucus Urine Opiates Screen U Tricyclic Antidepress U Marijuana (THC) Screen - Diagnostic Findings Chest x-ray: image reviewed CT scan - chest: image reviewed Assessment and Plan Assessment: Traumatic fall, from approximately 20-25 feet Traumatic right-sided pneumothorax status post chest tube insertion in the emergency department, follow-up imaging showing trace residual right-sided pneumothorax Acute nondisplaced right posterior lateral 10th rib fracture and pulmonary contusion Acute hypoxemic respiratory failure, on 6 L/min nasal cannula, secondary to above Acute pelvic fracture with small intrapelvic hemorrhage; CT of the chest, abdomen, pelvis showing acute comminuted fracture of the right superior and inferior pelvic rami and right upper sacrum along with right L4 and L5 transverse processes. Right superior pelvic rami fracture extends into the anterior wall of the aceta bellum. 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 There is a small amount of acute hemorrhage in the anterior right pelvis and presacral region. No other intra-abdominal traumatic injuries noted. No immediate surgical intervention was recommended. Acute leukocytosis, reactive to trauma Hypertension COPD, stable and active History of lung cancer status post chemoradiation, follows outpatient with his oncologist Dr. Ruiz Current ongoing tobacco dependence, currently 1 pack/day smoker Marijuana smoker Plan: Patient's medications, labs, imaging reviewed Evaluated by trauma team. No immediate surgical intervention was recommended Orthopedic surgery consulted Continue to monitor hemodynamics closely, no signs of acute hemorrhage, hemoglobin stable Continue supplemental oxygen maintain oxygen saturation of 92% or greater Right-sided chest tube in place with good near complete resolution of right- sided pneumothorax, currently to -20 cm H2O suction Repeat chest x-ray in the morning Continue supportive care including incentive spirometer and pulmonary toileting Manage pain with current analgesics and consult to pain management. Patient is going to be admitted to the intensive care unit, once bed available for close hemodynamic monitoring. We will continue to follow. I have personally seen and examined the patient, performed the documentation and the assessment and plan as written. Number of minutes spent on the visit:20 Time with Patient: Greater than 30
[2024-11-01] MEDS: ATORVASTATIN 40 MG TAB PO SCH (05:48)
[2024-11-01 06:24] LABS: Basophils # (A) 0.02 10*3/uL (0.00-0.10); Basophils % (A) 0.2 %; HCT 43.3 % (39.6-50.0); HGB 15.4 g/dL (13.0-17.0); Lymphocytes # (A) 0.67 10*3/uL (0.90-5.00); Lymphocytes % (A) 5.5 %; MCH 32.2 pg (27.0-32.0); MCHC 35.6 g/dL (32.0-37.0); MCV 90.4 fL (80.0-97.0); Mean Platelet Volume 9.7 fL (9.5-12.2); Monocytes # (A) 0.96 10*3/uL (0.20-1.00); Monocytes % (A) 7.9 %; Neutrophils # (A) 10.43 10*3/uL (1.80-7.70); Neutrophils % (A) 85.9 %; Platelet Count 171 10*3/uL (140-440); RBC 4.79 10*6/uL (4.40-5.60); RDW 14.3 % (11.5-14.5); WBC 12.14 10*3/uL (4.50-10.00)
[2024-11-01] MEDS: SYMBICORT 80-4.5 MCG INHALER INHALATION SCH (07:55)
--- NOTE | 2024-11-01 08:05 | XR ---
EXAMINATION TYPE: XR chest 1V portable DATE OF EXAM: 11/01/2024 CLINICAL INDICATION: Male, 64 years old with history of Chest Trauma, progress study. A TECHNIQUE: Two AP portable semiupright views of the chest are obtained. COMPARISON: Chest x-ray and CT from one day earlier FINDINGS: Stable right apical chest tube. No visualized pneumothorax on current study. Chronic emphysematous and pulmonary fibrotic change with right basilar opacity redemonstrated. Cardia c silhouette stable and within normal limits with atherosclerotic thoracic aorta. Surgical changes le ft clavicle and cervical spine is redemonstrated. Old Posterior right mid-rib fracture is redemonstra sarah. IMPRESSION: No visualized right-sided pneumothorax on current study with right-sided chest tube in pl [place]. Background Chronic emphysematous and pulmonary fibrotic changes with right basilar acute infilt rate and/or atelectasis is redemonstrated. [facility], , 11/01/2024 8:03 AM
[2024-11-01] MEDS: LOSARTAN 25 MG TAB PO SCH (08:08)
[2024-11-01] MEDS: NICOTINE 21MG/24HR PATCH TRANSDERM SCH (08:08)
--- NOTE | 2024-11-01 08:55 | P.GSHP ---
History of Present Illness H&P Date: 10/31/24 Chief Complaint: Fall from roof 20 feet This a 64-year-old male who was working on the roof of a barn when he fell approximately 20 to 25 feet. Patient states the roof gave way underneath him. It is unclear if he had loss of conscious at the scene. Patient was brought to the emergency room as a level 2 trauma activation. Patient was found to have a right pneumothorax. Patient was having a chest tube inserted by Dr. Cedillo in the trauma resuscitation room. Past Medical History Past Medical History: COPD, Hypertension Additional Past Medical History / Comment(s): past hx. of a few "blackouts" per pt., never found anything wrong or cause-nothing since, lung nodule, recent PET scan showed some enlarged lymph nodes per pt. History of Any Multi-Drug Resistant Organisms: None Reported Past Surgical History: Adenoidectomy, Back Surgery, Tonsillectomy Additional Past Surgical History / Comment(s): CERVICAL PLATES AND SCREWS, C LAVICLE, LEFT KNEE. 04/21/19 thoroscopy with Bx Past Anesthesia/Blood Transfusion Reactions: No Reported Reaction Past Alcohol Use History: None Reported - Past Family History Sister(s) Family Medical History: Cancer Additional Family Medical History / Comment(s): breast Medications and Allergies Home Medications Medication Instructions Recorded Confirmed Type Cyclobenzaprine [Flexeril] 10 mg PO HS PRN 06/09/16 10/31/24 History Hydrocodone/Acetaminophen [[place] 1 tab PO DAILY 06/09/16 10/31/24 History 7.5-325] Ibuprofen [Motrin] 800 mg PO TID PRN 06/09/16 10/31/24 History Sertraline [Zoloft] 150 mg PO DAILY 04/20/19 10/31/24 History Budesonide/Glycopyr/Formoterol 2 puff INHALATION DIRECTED 07/16/21 10/31/24 History [Breztri Aerosphere Inhaler] Atorvastatin [Lipitor] 40 mg PO DAILY 10/31/24 10/31/24 History Losartan [Cozaar] 25 mg PO DAILY 10/31/24 10/31/24 History Allergies Allergy/AdvReac Type Severity Reaction Status Date / Time codeine AdvReac GI upset Verified 10/31/24 16:27 Surgical - Exam Vital Signs Pulse Resp BP Pulse Ox 72 20 124/82 75 L 10/31/24 15:52 10/31/24 15:52 10/31/24 15:52 10/31/24 15:52 Patient Seen Date: 10/31/24 Patient Seen Time: 16:30 - General well developed, moderate distress - Eyes PERRL - ENT normal pinna - Neck no masses - Respiratory Pain on right side of chest normal expansion - Cardiovascular Rhythm: regular - Abdomen Abdomen: soft, non tender - Integumentary no rash - Neurologic normal coordination, normal sensation - Psychiatric oriented to time, oriented to person, oriented to place, speech is normal Results - Labs 11/01/24 05:59 10/31/24 16:15 Abnormal Lab Results - Last 24 Hours (Table) 10/31/24 10/31/24 10/31/24 Range/Units 16:00 16:15 16:15 WBC 22.37 H (4.50-10.00) 10*3/uL MCH (27.0-32.0) pg MPV 9.1 L (9.5-12.2) fL Immature Gran # (0.00-0.04) 10*3/uL Neutrophils # 19.68 H (1.80-7.70) 10*3/uL Lymphocytes # (0.90-5.00) 10*3/uL Eosinophils # (0.04-0.35) 10*3/uL Sodium 134 L (137-145) mmol/L Chloride 97 L (98-107) mmol/L BUN 22 H (9-20) mg/dL Glucose 221 H (74-99) mg/dL POC Glucose (mg/dL) 227 H (70-110) mg/dL Plasma Lactic Acid Larry (0.7-2.0) mmol/L Calcium 10.4 H (8.4-10.2) mg/dL AST 74 H (17-59) U/L ALT 58 H (4-49) U/L Ur Specific [place] (1.001-1.035) Urine Protein (Negative) Urine Glucose (UA) (Negative) Urine Blood (Negative) Urine RBC (0-5) /hpf Hyaline Casts (0-2) /lpf Urine Mucus (None) /hpf Urine Opiates Screen (NotDetected) U Tricyclic Antidepress (NotDetected) U Marijuana (THC) Screen (NotDetected) 10/31/24 10/31/24 10/31/24 Range/Units 16:15 17:14 17:14 WBC (4.50-10.00) 10*3/uL MCH (27.0-32.0) pg MPV (9.5-12.2) fL Immature Gran # (0.00-0.04) 10*3/uL Neutrophils # (1.80-7.70) 10*3/uL Lymphocytes # (0.90-5.00) 10*3/uL Eosinophils # (0.04-0.35) 10*3/uL Sodium (137-145) mmol/L Chloride (98-107) mmol/L BUN (9-20) mg/dL Glucose (74-99) mg/dL POC Glucose (mg/dL) (70-110) mg/dL Plasma Lactic Acid Larry 2.5 H* (0.7-2.0) mmol/L Calcium (8.4-10.2) mg/dL AST (17-59) U/L ALT (4-49) U/L Ur Specific [place] 1.047 H (1.001-1.035) Urine Protein 2+ H (Negative) Urine Glucose (UA) 1+ H (Negative) Urine Blood Small H (Negative) Urine RBC 9 H (0-5) /hpf Hyaline Casts 3 H (0-2) /lpf Urine Mucus Rare H (None) /hpf Urine Opiates Screen Detected H (NotDetected) U Tricyclic Antidepress Detected H (NotDetected) U Marijuana (THC) Screen Detected H (NotDetected) 10/31/24 11/01/24 Range/Units 18:20 05:59 WBC 12.14 H (4.50-10.00) 10*3/uL MCH 32.2 H (27.0-32.0) pg MPV (9.5-12.2) fL Immature Gran # 0.06 H (0.00-0.04) 10*3/uL Neutrophils # 10.43 H (1.80-7.70) 10*3/uL Lymphocytes # 0.67 L (0.90-5.00) 10*3/uL Eosinophils # 0.00 L (0.04-0.35) 10*3/uL Sodium (137-145) mmol/L Chloride (98-107) mmol/L BUN (9-20) mg/dL Glucose (74-99) mg/dL POC Glucose (mg/dL) (70-110) mg/dL Plasma Lactic Acid Larry 4.0 H* (0.7-2.0) mmol/L Calcium (8.4-10.2) mg/dL AST (17-59) U/L ALT (4-49) U/L Ur Specific [place] (1.001-1.035) Urine Protein (Negative) Urine Glucose (UA) (Negative) Urine Blood (Negative) Urine RBC (0-5) /hpf Hyaline Casts (0-2) /lpf Urine Mucus (None) /hpf Urine Opiates Screen (NotDetected) U Tricyclic Antidepress (NotDetected) U Marijuana (THC) Screen (NotDetected) Diabetes panel 10/31/24 Range/Units 16:15 Sodium 134 L (137-145) mmol/L Potassium 4.0 (3.5-5.1) mmol/L Chloride 97 L (98-107) mmol/L Carbon Dioxide 25 (22-30) mmol/L BUN 22 H (9-20) mg/dL Creatinine 0.91 (0.66-1.25) mg/dL Glucose 221 H (74-99) mg/dL Calcium 10.4 H (8.4-10.2) mg/dL AST 74 H (17-59) U/L ALT 58 H (4-49) U/L Alkaline Phosphatase 103 (38-126) U/L Total Protein 8.2 (6.3-8.2) g/dL Albumin 4.8 (3.5-5.0) g/dL Calcium panel 10/31/24 Range/Units 16:15 Calcium 10.4 H (8.4-10.2) mg/dL Albumin 4.8 (3.5-5.0) g/dL Pituitary panel 10/31/24 Range/Units 16:15 Sodium 134 L (137-145) mmol/L Potassium 4.0 (3.5-5.1) mmol/L Chloride 97 L (98-107) mmol/L Carbon Dioxide 25 (22-30) mmol/L BUN 22 H (9-20) mg/dL Creatinine 0.91 (0.66-1.25) mg/dL Glucose 221 H (74-99) mg/dL Calcium 10.4 H (8.4-10.2) mg/dL Adrenal panel 10/31/24 Range/Units 16:15 Sodium 134 L (137-145) mmol/L Potassium 4.0 (3.5-5.1) mmol/L Chloride 97 L (98-107) mmol/L Carbon Dioxide 25 (22-30) mmol/L BUN 22 H (9-20) mg/dL Creatinine 0.91 (0.66-1.25) mg/dL Glucose 221 H (74-99) mg/dL Calcium 10.4 H (8.4-10.2) mg/dL Total Bilirubin 0.9 (0.2-1.3) mg/dL AST 74 H (17-59) U/L ALT 58 H (4-49) U/L Alkaline Phosphatase 103 (38-126) U/L Total Protein 8.2 (6.3-8.2) g/dL Albumin 4.8 (3.5-5.0) g/dL - Imaging Additional studies: Right pneumothorax on chest x-ray Right superior inferior rami fractures L4-L5 transverse process fracture Assessment and Plan Assessment: Fall from 25 feet with multiple orthopedic fractures and right pneumothorax. Patient will have chest tube placed. Patient will be observed in the ICU overnight.
[2024-11-01] MEDS: HYDROcodone/APAP 5-325MG 1 EACH TAB PO PRN (10:41)
--- NOTE | 2024-11-01 11:22 | P.GSCN ---
History of Present Illness Consult date: 11/01/24 Reason for Consult: Traumatic right-sided pneumothorax status post chest tube insertion in the emergency department, chest tube management. Requesting physician: Kobe Rodriguez History of present illness: This is a 64-year-old gentleman who follows on an outpatient basis for his primary care with Dr. Magdalena Sarmiento. He has a past medical history significant for a left upper lobe lung tumor, he is status post a left thoracoscopic biopsy of mediastinal lymph nodes in March 2019 and he is status post radiation and chemotherapy. He also has a past medical history significant for hypertension, hyperlipidemia, peripheral arterial disease, COPD, depression and chronic ongoing tobacco dependence in which he smokes 1 pack of cigarettes per day. The patient presented to the emergency department here at [facility] yesterday October 31, 2024 via EMS after sustaining a fall from a ladder about 20 feet. It is unclear whether the patient lost consciousness at the scene. The patient denies any recent fever, chills, nausea, vomiting, syncopal episodes, hematemesis, hemoptysis, change in appetite, memory loss, or headache. The patient reports he is having some pain to his chest tube insertion site and to his right chest, although controlled on current pain medication regimen. His initial laboratory results showed a WBC count of 22.37, hemoglobin 16.5, hematocrit 47, platelets 224, PT 11.5, INR 1.0, PTT 22.4, sodium 134, potassium 4.0, chloride 97, CO2 25, BUN 22, creatinine 0.91, glucose 221, plasmic lactic acid 2.5, calcium 10.4, AST 74, ALT 58, and toxicology screen positive for THC. An x-ray of his pelvis was completed which showed no acute displaced fracture in the pelvis. A chest x-ray was completed which showed a moderate to large size right-sided pneumothorax without significant mediastinal shift, diffuse right lung edema and/or atelectasis noted. Due to the findings of a right-sided pneumothorax a chest tube was placed in the emergency department and a repeat chest x-ray was completed. The repeat chest x-ray showed marked improvement in the right-sided pneumothorax post chest tube placement. Subsequently, for further evaluation a CT scan of the chest, abdomen, pelvis with contrast showed a tiny residual anterior right basilar pneumothorax with an appropriate placed right-sided chest tube. Probable pulmonary contusion at the right base. Subcutaneous emphysema along the posterior lateral aspect of the right lower ribs with suspected acute nondisplaced fracture of the right posterior lateral 10th rib. Old malunion fracture of the right posterior right ninth rib redemonstrated. Acute comminuted fracture of the right superior and inferior pelvic rami and right upper sacrum along with right L4 and L5 transverse processes. Right superior pelvic rami fracture extends into the anterior wall of the aceta bellum. 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 There is a small amount of acute hemorrhage in the anterior right pelvis and presacral region. No intra-abdominal traumatic injuries noted. No immediate surgical intervention was recommended. Due to the findings of a acute traumatic right pneumothorax and subsequent chest tube placement a consult was placed to pulmonary/critical care medicine for further evaluation and bhavna tment recommendations. He was seen and examined by pulmonary/critical care medicine and subsequently a consult was placed to cardiothoracic surgery for chest tube management, further evaluation and treatment recommendations. Review of Systems A review of systems was completed was negative except as mentioned in the HPI. Past Medical History Past Medical History: Asthma, COPD, Hyperlipidemia, Hypertension Additional Past Medical History / Comment(s): past hx. of a few "blackouts" per pt., never found anything wrong or cause-nothing since, lung nodule, recent PET scan showed some enlarged lymph nodes per pt. History of Any Multi-Drug Resistant Organisms: None Reported Past Surgical History: Adenoidectomy, Back Surgery, Tonsillectomy Additional Past Surgical History / Comment(s): CERVICAL PLATES AND SCREWS, CLAVICLE, LEFT KNEE. 04/21/19 left thoroscopy with Bx. Left knee scope Past Anesthesia/Blood Transfusion Reactions: No Reported Reaction Past Psychological History: Depression Smoking Status: Current every day smoker (Smokes 1 pack of cigarettes per day) Past Alcohol Use History: None Reported Past Drug Use History: Marijuana - Past Family History Sister(s) Family Medical History: Cancer Additional Family Medical History / Comment(s): breast Father Family Medical History: Congestive Heart Failure (CHF) Medications and Allergies Home Medications Medication Instructions Recorded Confirmed Type Cyclobenzaprine [Flexeril] 10 mg PO HS PRN 06/09/16 10/31/24 History Hydrocodone/Acetaminophen [[place] 1 tab PO DAILY 06/09/16 10/31/24 History 7.5-325] Ibuprofen [Motrin] 800 mg PO TID PRN 06/09/16 10/31/24 History Sertraline [Zoloft] 150 mg PO DAILY 04/20/19 10/31/24 History Budesonide/Glycopyr/Formoterol 2 puff INHALATION DIRECTED 07/16/21 10/31/24 History [Breztri Aerosphere Inhaler] Atorvastatin [Lipitor] 40 mg PO DAILY 10/31/24 10/31/24 History Losartan [Cozaar] 25 mg PO DAILY 10/31/24 10/31/24 History Allergies Allergy/AdvReac Type Severity Reaction Status Date / Time codeine AdvReac GI upset Verified 10/31/24 16:27 Surgical - Exam Vital Signs Pulse Resp BP Pulse Ox 72 20 124/82 75 L 10/31/24 15:52 10/31/24 15:52 10/31/24 15:52 10/31/24 15:52 - General well developed, well nourished, no distress, moderate pain (Pain to his right chest tube insertion site) - Eyes PERRL, normal ocular movement, no pale, no icteric - ENT normal pinna, normal nares, normal mucosa, no hearing loss, no congestion - Neck no masses, no bruits, trachea midline, no venous distension - Respiratory Lungs essentially clear throughout, diminished to his bilateral bases right gre ater than left. No wheezes, rhonchi or crackles. Achieving 750 mL on his incentive spirometry. 4 L nasal cannula with oxygen saturations 91%. Right pleural chest tube to low continuous wall suction -20 cm H2O. No air leak present. No drainage present. - Cardiovascular Regular rhythm and rate. S1 and S2 present, negative for S3, gallop or murmur. No edema present. Palpable peripheral pulses. - Abdomen Abdomen is soft, nontender and nondistended. Active bowel sounds present all 4 abdominal quadrants. No guarding or rigidity. No organomegaly appreciated. - Genitourinary Deferred - Rectum Deferred - Integumentary Skin is warm and dry. No clubbing or cyanosis is present. Dressing is clean, dry and intact to his right chest tube insertion site. no rash, no growths, no abnormal pigmentation - Neurologic No focal deficits. - Musculoskeletal Moves all 4 extremities. - Psychiatric oriented to time, oriented to person, oriented to place, speech is normal, memory intact Results - Labs 11/01/24 05:59 10/31/24 16:15 Abnormal Lab Results - Last 24 Hours (Table) 10/31/24 10/31/24 10/31/24 Range/Units 16:00 16:15 16:15 WBC 22.37 H (4.50-10.00) 10*3/uL MCH (27.0-32.0) pg MPV 9.1 L (9.5-12.2) fL Immature Gran # (0.00-0.04) 10*3/uL Neutrophils # 19.68 H (1.80-7.70) 10*3/uL Lymphocytes # (0.90-5.00) 10*3/uL Eosinophils # (0.04-0.35) 10*3/uL Sodium 134 L (137-145) mmol/L Chloride 97 L (98-107) mmol/L BUN 22 H (9-20) mg/dL Glucose 221 H (74-99) mg/dL POC Glucose (mg/dL) 227 H (70-110) mg/dL Plasma Lactic Acid Larry (0.7-2.0) mmol/L Calcium 10.4 H (8.4-10.2) mg/dL AST 74 H (17-59) U/L ALT 58 H (4-49) U/L Ur Specific [place] (1.001-1.035) Urine Protein (Negative) Urine Glucose (UA) (Negative) Urine Blood (Negative) Urine RBC (0-5) /hpf Hyaline Casts (0-2) /lpf Urine Mucus (None) /hpf Urine Opiates Screen (NotDetected) U Tricyclic Antidepress (NotDetected) U Marijuana (THC) Screen (NotDetected) 10/31/24 10/31/24 10/31/24 Range/Units 16:15 17:14 17:14 WBC (4.50-10.00) 10*3/uL MCH (27.0-32.0) pg MPV (9.5-12.2) fL Immature Gran # (0.00-0.04) 10*3/uL Neutrophils # (1.80-7.70) 10*3/uL Lymphocytes # (0.90-5.00) 10*3/uL Eosinophils # (0.04-0.35) 10*3/uL Sodium (137-145) mmol/L Chloride (98-107) mmol/L BUN (9-20) mg/dL Glucose (74-99) mg/dL POC Glucose (mg/dL) (70-110) mg/dL Plasma Lactic Acid Larry 2.5 H* (0.7-2.0) mmol/L Calcium (8.4-10.2) mg/dL AST (17-59) U/L ALT (4-49) U/L Ur Specific [place] 1.047 H (1.001-1.035) Urine Protein 2+ H (Negative) Urine Glucose (UA) 1+ H (Negative) Urine Blood Small H (Negative) Urine RBC 9 H (0-5) /hpf Hyaline Casts 3 H (0-2) /lpf Urine Mucus Rare H (None) /hpf Urine Opiates Screen Detected H (NotDetected) U Tricyclic Antidepress Detected H (NotDetected) U Marijuana (THC) Screen Detected H (NotDetected) 10/31/24 11/01/24 Range/Units 18:20 05:59 WBC 12.14 H (4.50-10.00) 10*3/uL MCH 32.2 H (27.0-32.0) pg MPV (9.5-12.2) fL Immature Gran # 0.06 H (0.00-0.04) 10*3/uL Neutrophils # 10.43 H (1.80-7.70) 10*3/uL Lymphocytes # 0.67 L (0.90-5.00) 10*3/uL Eosinophils # 0.00 L (0.04-0.35) 10*3/uL Sodium (137-145) mmol/L Chloride (98-107) mmol/L BUN (9-20) mg/dL Glucose (74-99) mg/dL POC Glucose (mg/dL) (70-110) mg/dL Plasma Lactic Acid Larry 4.0 H* (0.7-2.0) mmol/L Calcium (8.4-10.2) mg/dL AST (17-59) U/L ALT (4-49) U/L Ur Specific [place] (1.001-1.035) Urine Protein (Negative) Urine Glucose (UA) (Negative) Urine Blood (Negative) Urine RBC (0-5) /hpf Hyaline Casts (0-2) /lpf Urine Mucus (None) /hpf Urine Opiates Screen (NotDetected) U Tricyclic Antidepress (NotDetected) U Marijuana (THC) Screen (NotDetected) Diabetes panel 10/31/24 Range/Units 16:15 Sodium 134 L (137-145) mmol/L Potassium 4.0 (3.5-5.1) mmol/L Chloride 97 L (98-107) mmol/L Carbon Dioxide 25 (22-30) mmol/L BUN 22 H (9-20) mg/dL Creatinine 0.91 (0.66-1.25) mg/dL Glucose 221 H (74-99) mg/dL Calcium 10.4 H (8.4-10.2) mg/dL AST 74 H (17-59) U/L ALT 58 H (4-49) U/L Alkaline Phosphatase 103 (38-126) U/L Total Protein 8.2 (6.3-8.2) g/dL Albumin 4.8 (3.5-5.0) g/dL Calcium panel 10/31/24 Range/Units 16:15 Calcium 10.4 H (8.4-10.2) mg/dL Albumin 4.8 (3.5-5.0) g/dL Pituitary panel 10/31/24 Range/Units 16:15 Sodium 134 L (137-145) mmol/L Potassium 4.0 (3.5-5.1) mmol/L Chloride 97 L (98-107) mmol/L Carbon Dioxide 25 (22-30) mmol/L BUN 22 H (9-20) mg/dL Creatinine 0.91 (0.66-1.25) mg/dL Glucose 221 H (74-99) mg/dL Calcium 10.4 H (8.4-10.2) mg/dL Adrenal panel 10/31/24 Range/Units 16:15 Sodium 134 L (137-145) mmol/L Potassium 4.0 (3.5-5.1) mmol/L Chloride 97 L (98-107) mmol/L Carbon Dioxide 25 (22-30) mmol/L BUN 22 H (9-20) mg/dL Creatinine 0.91 (0.66-1.25) mg/dL Glucose 221 H (74-99) mg/dL Calcium 10.4 H (8.4-10.2) mg/dL Total Bilirubin 0.9 (0.2-1.3) mg/dL AST 74 H (17-59) U/L ALT 58 H (4-49) U/L Alkaline Phosphatase 103 (38-126) U/L Total Protein 8.2 (6.3-8.2) g/dL Albumin 4.8 (3.5-5.0) g/dL - Imaging Chest x-ray: report reviewed, image reviewed CT scan - chest: report reviewed, image reviewed Assessment and Plan Assessment: Traumatic fall from a ladder approximately 20 feet Traumatic right-sided pneumothorax, status post chest tube insertion in the emergency department, follow-up imaging showing trace right-sided residual pneumothorax, no air leak present on chest tube Acute nondisplaced right posterior lateral 10th rib fracture and pulmonary contusion Acute pelvic fracture with small intrapelvic hemorrhage; CT of the chest, abdomen, pelvis showing acute comminuted fracture of the right superior and inferior pelvic rami and right upper sacrum along with right L4 and L5 transverse processes. Right superior pelvic rami fracture extends into the anterior wall of the aceta bellum. 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 There is a small amount of acute hemorrhage in the anterior right pelvis and presacral region. No other intra-abdominal traumatic injuries noted. No immediate surgical intervention was recommended Acute leukocytosis, likely reactive to trauma Hypertension Hyperlipidemia COPD Asthma History of lung cancer, status post left thoracoscopic lung biopsy, and chemoradiation Chronic ongoing tobacco dependence, smokes 1 pack of cigarettes per day Marijuana use Plan: The patient was seen and examined at his bedside in the emergency department. His chart and diagnostics reviewed. His case was discussed with Dr. Matta from cardiothoracic surgery. We will place his chest tube to waterseal and removed from low continuous wall suction. Continue to record strict output. Continue to monitor daily chest x-rays to evaluate for pneumothorax. The importance of risk modification including smoking cessation has been discussed with the patient. Encouraged use of incentive spirometry 10 times every hour while awake. Wean oxygen as tolerated. Medical management and other comorbidities per internal medicine, trauma service and pulmonary/critical care medicine. We will add Toradol for additional pain control. More recommendations to follow based on patient's clinical course. Thank you Dr. Rodriguez for this consult and we look forward to working with you in the care of this patient. I have personally seen and examined the patient, performed the documentation and the assessment and plan as written. Number of minutes spent on the visit: 30. MONROE Gibson
[2024-11-01] MEDS: KETOROLAC 15 MG/ML 1 ML VIAL IVP SCH (11:54)
--- NOTE | 2024-11-01 12:20 | P.PN ---
Subjective Progress Note Date: 11/01/24 SURGICAL PROGRESS NOTE CHIEF COMPLAINT: Fall with trauma HISTORY OF PRESENT ILLNESS: Patient remains in the ER. He has a right chest tube in place for the right pneumothorax. His pain is controlled. Patient reports that shortness of breath is improved. Blood pressure is elevated. He is on 5 L satting at 94%. WBC is down from 22-12 Hgb 15.4. Platelets 171 Patient seen and examined with Dr. Sanchez PHYSICAL EXAM: VITAL SIGNS: Reviewed. GENERAL: Well-developed in no acute distress. CHEST: Right chest tube in place. No use of assessory muscles. Normal chest expansion ABDOMEN: Soft. Nondistended. Nontender. NEUROLOGIC: Alert and oriented. Cranial nerves II through XII grossly intact. Extremities: Able to move all 4 extremities ASSESSMENT: 1. Fall from 25 feet 2. Traumatic right pneumothorax status post chest tube placement 3. Pelvic fracture and small intrapelvic hemorrhage 4. Right 10th rib fracture nondisplaced and pulmonary contusion 5. Hypertension 6. Nicotine dependence PLAN: - Orthopedic service on consult for pelvic fracture - Pulmonary and cardiothoracic service following pneumothorax - Chest tube management per cardiothoracic team - Continue pain management - Pain management service on consult - Medicine service consulted for hypertension and medical management - Encourage patient to use incentive spirometer - Continue regular diet - DVT prophylaxis will add Lovenox 40 mg SQ twice daily if okay with orthopedic service. Will discuss with orthopedic service. Physician [employer] note has been reviewed by physician. Signing provider agrees with the documented findings, assessment, and plan of care. Objective - Vital Signs Vital signs: Vital Signs Temp 97.9 F 11/01/24 10:34 Pulse 84 11/01/24 10:34 Resp 15 11/01/24 10:34 BP 176/106 11/01/24 10:34 Pulse Ox 93 L 11/01/24 10:34 FiO2 Intake & Output 10/31/24 11/01/24 11/01/24 18:59 06:59 18:59 Weight 79.379 kg - Labs CBC & Chem 7: 11/01/24 05:59 10/31/24 16:15 Labs: Abnormal Lab Results - Last 24 Hours (Table) 10/31/24 10/31/24 10/31/24 Range/Units 16:00 16:15 16:15 WBC 22.37 H (4.50-10.00) 10*3/uL MCH (27.0-32.0) pg MPV 9.1 L (9.5-12.2) fL Immature Gran # (0.00-0.04) 10*3/uL Neutrophils # 19.68 H (1.80-7.70) 10*3/uL Lymphocytes # (0.90-5.00) 10*3/uL Eosinophils # (0.04-0.35) 10*3/uL Sodium 134 L (137-145) mmol/L Chloride 97 L (98-107) mmol/L BUN 22 H (9-20) mg/dL Glucose 221 H (74-99) mg/dL POC Glucose (mg/dL) 227 H (70-110) mg/dL Plasma Lactic Acid [place] (0.7-2.0) mmol/L Calcium 10.4 H (8.4-10.2) mg/dL AST 74 H (17-59) U/L ALT 58 H (4-49) U/L Ur Specific [place] (1.001-1.035) Urine Protein (Negative) Urine Glucose (UA) (Negative) Urine Blood (Negative) Urine RBC (0-5) /hpf Hyaline Casts (0-2) /lpf Urine Mucus (None) /hpf Urine Opiates Screen (NotDetected) U Tricyclic Antidepress (NotDetected) U Marijuana (THC) Screen (NotDetected) 10/31/24 10/31/24 10/31/24 Range/Units 16:15 17:14 17:14 WBC (4.50-10.00) 10*3/uL MCH (27.0-32.0) pg MPV (9.5-12.2) fL Immature Gran # (0.00-0.04) 10*3/uL Neutrophils # (1.80-7.70) 10*3/uL Lymphocytes # (0.90-5.00) 10*3/uL Eosinophils # (0.04-0.35) 10*3/uL Sodium (137-145) mmol/L Chloride (98-107) mmol/L BUN (9-20) mg/dL Glucose (74-99) mg/dL POC Glucose (mg/dL) (70-110) mg/dL Plasma Lactic Acid [place] 2.5 H* (0.7-2.0) mmol/L Calcium (8.4-10.2) mg/dL AST (17-59) U/L ALT (4-49) U/L Ur Specific [place] 1.047 H (1.001-1.035) Urine Protein 2+ H (Negative) Urine Glucose (UA) 1+ H (Negative) Urine Blood Small H (Negative) Urine RBC 9 H (0-5) /hpf Hyaline Casts 3 H (0-2) /lpf Urine Mucus Rare H (None) /hpf Urine Opiates Screen Detected H (NotDetected) U Tricyclic Antidepress Detected H (NotDetected) U Marijuana (THC) Screen Detected H (NotDetected) 10/31/24 11/01/24 Range/Units 18:20 05:59 WBC 12.14 H (4.50-10.00) 10*3/uL MCH 32.2 H (27.0-32.0) pg MPV (9.5-12.2) fL Immature Gran # 0.06 H (0.00-0.04) 10*3/uL Neutrophils # 10.43 H (1.80-7.70) 10*3/uL Lymphocytes # 0.67 L (0.90-5.00) 10*3/uL Eosinophils # 0.00 L (0.04-0.35) 10*3/uL Sodium (137-145) mmol/L Chloride (98-107) mmol/L BUN (9-20) mg/dL Glucose (74-99) mg/dL POC Glucose (mg/dL) (70-110) mg/dL Plasma Lactic Acid [place] 4.0 H* (0.7-2.0) mmol/L Calcium (8.4-10.2) mg/dL AST (17-59) U/L ALT (4-49) U/L Ur Specific [place] (1.001-1.035) Urine Protein (Negative) Urine Glucose (UA) (Negative) Urine Blood (Negative) Urine RBC (0-5) /hpf Hyaline Casts (0-2) /lpf Urine Mucus (None) /hpf Urine Opiates Screen (NotDetected) U Tricyclic Antidepress (NotDetected) U Marijuana (THC) Screen (NotDetected)
--- NOTE | 2024-11-01 12:33 | P.CNOR ---
History of Present Illness - [facility] Consult date: 11/01/24 Consult reason: low back pain History of present illness: The patient is seen and examined at bedside. We are asked to consult on him in regards to his lumbar spine fractures. Patient is a very pleasant 64-year-old male who was working on his barn and he says that a board gave way and he fell almost 25 feet onto the ground. He presented as a trauma patient to the emergency room was found to have a number of blood injuries including a traumatic pneumothorax on the right, rib fractures, pubic rami fracture extending to his right acetabulum, sacral ala fracture, and transverse process fractures of his lumbar spine at L4 and L5. Patient was initially evaluated by trauma in the emergency room and had approp riate treatment and chest tube placed to his right chest. He says he that he remembers his fall. He denies any new changes in his lower extremities. He denies any new numbness tingling or weakness in his lower extremities. He denies any changes in bowel or bladder function. He has pain globally over his right side particularly at his right lower back right pelvis and toward his hip. He says his arms are doing well. He had history of cervical spine surgery x 2 with the most recent about 10 years ago where he had cervical spine fusion he says that feels the same as usual. He denies any new changes in the upper extremities. He says he is having some difficulty with his right chest when he tries to breathe deep. He has a chest tube intact and is being monitored in the emergency room as he awaits a bed in the intensive care unit. Patient says that he has not had this type of back pain in the past. He has not had numbness tingling in his lower extremities. He says his right hip has been giving him trouble for past couple years but he is still been able to manage adequately with this. Most of his pain currently he is due to his fall. Review of Systems As stated per HPI. He denies any new numbness tingling his lower extremities. Denies any new weakness in his lower extremities. Pain is primarily focused around his right pelvis his low back and toward his right hip. He also has pain in his right chest and his chest tube intact. He denies any new neck pain. Past Medical History Past Medical History: Asthma, COPD, Hyperlipidemia, Hypertension Additional Past Medical History / Comment(s): past hx. of a few "blackouts" per pt., never found anything wrong or cause-nothing since, lung nodule, recent PET scan showed some enlarged lymph nodes per pt. History of cervical spine fusion surgery x 2 most recently 10 years ago with fusion C4-5 C5-6 C6-7 which has been stable for him History of Any Multi-Drug Resistant Organisms: None Reported Past Surgical History: Adenoidectomy, Back Surgery, Tonsillectomy Additional Past Surgical History / Comment(s): CERVICAL PLATES AND SCREWS, CLAVICLE, LEFT KNEE. 04/21/19 left thoroscopy with Bx. Left knee scope Past Anesthesia/Blood Transfusion Reactions: No Reported Reaction Past Psychological History: Depression Smoking Status: Current every day smoker (Smokes 1 pack of cigarettes per day) Past Alcohol Use History: None Reported Past Drug Use History: Marijuana - Past Family History Sister(s) Family Medical History: Cancer Additional Family Medical History / Comment(s): breast Father Family Medical History: Congestive Heart Failure (CHF) Medications and Allergies Home Medications Medication Instructions Recorded Confirmed Type Cyclobenzaprine [Flexeril] 10 mg PO HS PRN 06/09/16 10/31/24 History Hydrocodone/Acetaminophen [[place] 1 tab PO DAILY 06/09/16 10/31/24 History 7.5-325] Ibuprofen [Motrin] 800 mg PO TID PRN 06/09/16 10/31/24 History Sertraline [Zoloft] 150 mg PO DAILY 04/20/19 10/31/24 History Budesonide/Glycopyr/Formoterol 2 puff INHALATION DIRECTED 07/16/21 10/31/24 History [Breztri Aerosphere Inhaler] Atorvastatin [Lipitor] 40 mg PO DAILY 10/31/24 10/31/24 History Losartan [Cozaar] 25 mg PO DAILY 10/31/24 10/31/24 History Allergies Allergy/AdvReac Type Severity Reaction Status Date / Time codeine AdvReac GI upset Verified 10/31/24 16:27 Physical Examination Osteopathic Statement: *. No significant issues noted on an osteopathic str uctural exam other than those noted in the History and Physical/Consult. - L Spine: dermatomal strength & reflexes bilateral Strength: hip flexion: 5/5 (His neck has well-healed incision. He has adequate motion without any pain with motion of his neck. At his lower back he has tenderness to palpation over the right paraspinals. There is no open wounds lacerations or abrasions. He has some tenderness to palpation over his right pelvis and sacrum.) Strength: knee flexion: 5/5 (He has good motion at his bilateral hips. He moves somewhat slowly on the right. There is no pain with internal/external rotation but he has pain with resisted strength testing in his right leg. He has 5 out of 5 strength with dorsiflexion plantarflexion EHL. Calves and thighs soft nontender) Results - Labs Labs: Abnormal Lab Results - Last 24 Hours (Table) 10/31/24 10/31/24 10/31/24 Range/Units 16:00 16:15 16:15 WBC 22.37 H (4.50-10.00) 10*3/uL MCH (27.0-32.0) pg MPV 9.1 L (9.5-12.2) fL Immature Gran # (0.00-0.04) 10*3/uL Neutrophils # 19.68 H (1.80-7.70) 10*3/uL Lymphocytes # (0.90-5.00) 10*3/uL Eosinophils # (0.04-0.35) 10*3/uL Sodium 134 L (137-145) mmol/L Chloride 97 L (98-107) mmol/L BUN 22 H (9-20) mg/dL Glucose 221 H (74-99) mg/dL POC Glucose (mg/dL) 227 H (70-110) mg/dL Plasma Lactic Acid Larry (0.7-2.0) mmol/L Calcium 10.4 H (8.4-10.2) mg/dL AST 74 H (17-59) U/L ALT 58 H (4-49) U/L Ur Specific [place] (1.001-1.035) Urine Protein (Negative) Urine Glucose (UA) (Negative) Urine Blood (Negative) Urine RBC (0-5) /hpf Hyaline Casts (0-2) /lpf Urine Mucus (None) /hpf Urine Opiates Screen (NotDetected) U Tricyclic Antidepress (NotDetected) U Marijuana (THC) Screen (NotDetected) 10/31/24 10/31/2410/31/25 Range/Units 16:15 17:14 17:14 WBC (4.50-10.00) 10*3/uL MCH (27.0-32.0) pg MPV (9.5-12.2) fL Immature Gran # (0.00-0.04) 10*3/uL Neutrophils # (1.80-7.70) 10*3/uL Lymphocytes # (0.90-5.00) 10*3/uL Eosinophils # (0.04-0.35) 10*3/uL Sodium (137-145) mmol/L Chloride (98-107) mmol/L BUN (9-20) mg/dL Glucose (74-99) mg/dL POC Glucose (mg/dL) (70-110) mg/dL Plasma Lactic Acid Larry 2.5 H* (0.7-2.0) mmol/L Calcium (8.4-10.2) mg/dL AST (17-59) U/L ALT (4-49) U/L Ur Specific [place] 1.047 H (1.001-1.035) Urine Protein 2+ H (Negative) Urine Glucose (UA) 1+ H (Negative) Urine Blood Small H (Negative) Urine RBC 9 H (0-5) /hpf Hyaline Casts 3 H (0-2) /lpf Urine Mucus Rare H (None) /hpf Urine Opiates Screen Detected H (NotDetected) U Tricyclic Antidepress Detected H (NotDetected) U Marijuana (THC) Screen Detected H (NotDetected) 10/31/24 11/01/24 Range/Units 18:20 05:59 WBC 12.14 H (4.50-10.00) 10*3/uL MCH 32.2 H (27.0-32.0) pg MPV (9.5-12.2) fL Immature Gran # 0.06 H (0.00-0.04) 10*3/uL Neutrophils # 10.43 H (1.80-7.70) 10*3/uL Lymphocytes # 0.67 L (0.90-5.00) 10*3/uL Eosinophils # 0.00 L (0.04-0.35) 10*3/uL Sodium (137-145) mmol/L Chloride (98-107) mmol/L BUN (9-20) mg/dL Glucose (74-99) mg/dL POC Glucose (mg/dL) (70-110) mg/dL Plasma Lactic Acid Larry 4.0 H* (0.7-2.0) mmol/L Calcium (8.4-10.2) mg/dL AST (17-59) U/L ALT (4-49) U/L Ur Specific [place] (1.001-1.035) Urine Protein (Negative) Urine Glucose (UA) (Negative) Urine Blood (Negative) Urine RBC (0-5) /hpf Hyaline Casts (0-2) /lpf Urine Mucus (None) /hpf Urine Opiates Screen (NotDetected) U Tricyclic Antidepress (NotDetected) U Marijuana (THC) Screen (NotDetected) H & H 10/31/24 11/01/24 Range/Units 16:15 05:59 Hgb 16.5 15.4 (13.0-17.0) g/dL Hct 47.0 43.3 (39.6-50.0) % Coagulation 10/31/24 Range/Units 16:15 INR 1.0 (<1.2) Result Diagrams: 11/01/24 05:59 10/31/24 16:15 - Diagnostic results CT Scan - lumbar: report reviewed (There also seems to be evidence of AVN at the superior dome of the right femoral head. I do not see obvious collapse.), image reviewed (Images are reviewed. CT scan chest abdomen pelvis and lumbar spine reviewed. There is transverse process fractures at L4 and L5 on the right with minimal displacement. There is sacral ala fracture on the right and the pubic rami fractures on the right extending to the acetabulum minimally displac) Assessment and Plan Assessment: Traumatic fall from approximately 25 feet Acute right L4 and L5 transverse process fractures, stable without neurologic compromise Acute pubic rami fractures with extension to the acetabulum, minimally displaced Acute right sacral ala fracture and minimally displaced Right femoral head AVN, chronic No evidence of new neurologic compromise of the lower extremities Acute traumatic right pneumothorax with placement of chest tube in the emergency room Plan: Traumatic fall from approximately 25 feet Acute right L4 and L5 transverse process fractures, stable without neurologic compromise Acute pubic rami fractures with extension to the acetabulum, minimally displaced Acute right sacral ala fracture and minimally displaced Right femoral head AVN, chronic No evidence of new neurologic compromise of the lower extremities Acute traumatic right pneumothorax with placement of chest tube in the emergency room The patient has a number of blunt injuries due to his fall. Orthopedics is consulted in regards to a number of fractures as he has a close blood type pelvic injury which appears hemodynamically stable. They are planning conservative treatment for this at this point which I feel is appropriate. He does have issues at his right femoral head which may need further addressing once his fractures heal. We are asked to see him in regards to his lumbar spine injuries and the mechanism of his injury with this major trauma fall. He has transverse process fractures on the right at L4 and L5. This coincides well with his mechanism and his new injury given his pelvic and sacral fractures. We would plan for these transverse process fractures to heal expec tantly. He would likely have some relief with bracing with an LSO brace and we will order that for him. I have put a prescription in his chart for the LSO brace to be worn when out of bed. From an orthopedic spine standpoint is okay for him to mobilize and ambulate with the LSO brace intact. He does not need to use the brace while he is in bed or for bathing. He will have continued care for his sacral and pelvis fractures and for his femoral head issues with Dr. Pritchett. They are continuing acute intensive management in regards to his traumatic pneumothorax. His chest tube is being managed appropriately and will continue management with intensive care and trauma service. From a spine standpoint he is okay to follow-up the patient essentially on an outpatient basis in the next 1 to 2 weeks for recheck evaluation and repeat x- rays. He will continue his management for general Ortho and trauma service as well as critical care here in the hospital.
--- NOTE | 2024-11-01 13:39 | XR ---
EXAMINATION TYPE: XR chest 1V DATE OF EXAM: 11/01/2024 CLINICAL INDICATION: Male, 64 years old with history of verify chest tube/ pneumo, progress study. TECHNIQUE: Single AP portable upright view of the chest is obtained. COMPARISON: Chest x-ray from earlier today FINDINGS: Stable right apical chest tube. No visualized pneumothorax on current study. Background Chronic emphysematous and pulmonary fibrotic change with right basilar opacity redemonstra sarah. Cardiac silhouette stable and within normal limits with atherosclerotic thoracic aorta. Surgical changes left clavicle and cervical spine is redemonstrated. IMPRESSION: No visualized right-sided pneumothorax on current study with right-sided apical chest tub e redemonstrated. Background Chronic emphysematous and pulmonary fibrotic changes with right basilar acute infiltrate and/or atelectasis redemonstrated. No significant change from study earlier today. [facility], , 11/01/2024 1:36 PM
[2024-11-01] MEDS: amLODIPine 5 MG TAB PO SCH (14:56)
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
[2024-11-01] MEDS ORDERED: DEXTROSE 50% SYRINGE 50 ML IVP PRN ×2 (15:03)
[2024-11-01] MEDS ORDERED: cloNIDine HCL 0.1 MG TAB PO PRN (15:08)
[2024-11-01] MEDS: IPRATROPIUM-ALBUTEROL 3 ML NEB INHALATION SCH (15:26)
[2024-11-01 16:03] LABS: Glucose,Whole Blood 112 mg/dL (70-110)
[2024-11-01] MEDS: INSULIN LISPRO (HumaLOG) 100 UNIT/ML 10 mL VL SQ SCH (17:30)
[2024-11-01 17:31] LABS: Glucose,Whole Blood 101 mg/dL (70-110)
[2024-11-01] MEDS: cloNIDine HCL 0.1 MG TAB PO SCH (18:05)
--- NOTE | 2024-11-01 18:16 | P.PN ---
Progress Note - Text Progress Note Date: 11/01/24 Patient seen today at 11:30 in the morning, in the emergency department, patient currently on morphine sulfate 4 mg every 4 hours as needed and Toradol 15 mg every 6 hours as needed and 5/325 every 6 hours, that the current medication controlling his pain and he denies any side effect of this medication, and there is no need to change the current regimen, for this reason there is no need for pain management consultation
--- NOTE | 2024-11-01 18:23 | CONS ---
CONSULTATION REASON FOR CONSULTATION: Advice regarding atelectasis, on medication, requested by Surgery. HISTORY OF PRESENT ILLNESS: This is a 64-year-old gentleman with a past medical history of multiple problems including asthma, COPD, hypertension, hyperlipidemia, apparently fell from the roof and sustained multiple fractures. The patient had traumatic right pneumothorax. Chest tube was inserted. The patient also had multiple orthopedic fractures including right L4-L5 transverse process fracture, pubic rami fracture, and right sacral ala fracture and as well as right femoral head AVN, which is rather chronic. The patient is symptomatically treated at this time. The CT scan showed possible atelectasis consolidation on the right side. White count is elevated, which is trending down. There is no history of any fever at this time. The patient is slightly hypoxic. PAST MEDICAL HISTORY: Reviewed include COPD, asthma. Rest of he history and rest of the chart are also reviewed. HOME MEDICATIONS: Reviewed include Zoloft. Dose and rest of medications reviewed. ALLERGIES: Codeine. FAMILY HISTORY: History of breast cancer. SOCIAL HISTORY: Current smoking and THC. REVIEW OF SYSTEMS: A 14-point review of systems is negative except as mentioned earlier. PHYSICAL EXAMINATION: VITAL SIGNS: Pulse is 84, blood pressure 157/102, respirations 19, pulse ox 90% on 6 L. HEENT: Conjunctivae normal. NECK: No JVD. CARDIOVASCULAR: S1, S2. RESPIRATIONS: Breath sounds diminished at the bases. A few scattered rhonchi and crackles. ABDOMEN: Soft, nontender. No mass palpable. LEGS: Some movements are painful. NERVOUS SYSTEM: Nonfocal. LABORATORY DATA: Reviewed. ASSESSMENT: 1. Fall and multiple fractures and also traumatic right pneumothorax, status post chest tube drainage. 2. Hypertension. 3. Right L4-L5 transverse process fracture. 4. Acute pubic rami fracture. 5. Acute right sacral ala fracture. 6. Right femoral head AVN, rather chronic. 7. Elevated WBC. 8. Atelectasis of the right side. 9. Hyponatremia. 10.Elevated random glucose. 11.AST, ALT. 12.Asthma, chronic obstructive pulmonary disease exacerbation. 13.Hypertension. 14.Hyperlipidemia. 15.Multiple medical issues. RECOMMENDATIONS AND DISCUSSION: This 64-year-old gentleman presented with multiple complex medical issues, we will monitor the patient closely. I would recommend intensive bronchodilator treatment. I would also recommend a short course of IV steroids. Continue to monitor procalcitonin. Blood sugars will be continuously monitored. For blood pressure, I would recommend p.r.n. clonidine and Norvasc also has been initiated. See orders for further details. Guarded prognosis. Further recommendations to follow. Incentive spirometry. [id number] / IJN: [id number] /
[2024-11-01 20:36] LABS: Glucose,Whole Blood 99 mg/dL (70-110)
[2024-11-01] MEDS: ENOXAPARIN 40 MG/0.4 ML SYRINGE SQ SCH (20:43)
[2024-11-01] MEDS ORDERED: ENOXAPARIN 40 MG/0.4 ML SYRINGE SQ SCH (21:00)
[2024-11-02 05:09] LABS: Basophils # (A) 0.03 10*3/uL (0.00-0.10); Basophils % (A) 0.2 %; Eosinophils # (A) 0.02 10*3/uL (0.04-0.35); Eosinophils % (A) 0.2 %; HCT 39.4 % (39.6-50.0); HGB 13.6 g/dL (13.0-17.0); Lymphocytes # (A) 0.66 10*3/uL (0.90-5.00); Lymphocytes % (A) 5.2 %; MCH 31.2 pg (27.0-32.0); MCHC 34.5 g/dL (32.0-37.0); MCV 90.4 fL (80.0-97.0); Mean Platelet Volume 9.6 fL (9.5-12.2); Monocytes # (A) 1.02 10*3/uL (0.20-1.00); Neutrophils # (A) 11.02 10*3/uL (1.80-7.70); Platelet Count 158 10*3/uL (140-440); RBC 4.36 10*6/uL (4.40-5.60); RDW 14.4 % (11.5-14.5)
[2024-11-02 05:26] LABS: African American GFR (CKD) >90 (>60 ml/min/1.73 sqM); Anion Gap 9 mmol/L; Blood Urea Nitrogen 39 mg/dL (9-20); Calcium 9.7 mg/dL (8.4-10.2); Carbon Dioxide 25 mmol/L (22-30); Chloride 99 mmol/L (98-107); Glucose 99 mg/dL (74-99); Non-African American GFR(CKD) >90 (>60 ml/min/1.73 sqM); Potassium 4.1 mmol/L (3.5-5.1); Sodium 133 mmol/L (137-145)
[2024-11-02 06:11] LABS: Glucose,Whole Blood 98 mg/dL (70-110)
--- NOTE | 2024-11-02 07:05 | XR ---
EXAMINATION TYPE: XR chest 1V portable DATE OF EXAM: 11/02/2024 CLINICAL INDICATION: Male, 64 years old with history of Traumatic right-sided pneumothorax, progress study. TECHNIQUE: Single AP portable upright view of the chest is obtained. COMPARISON: Chest x-ray from one day earlier and older studies. FINDINGS: Stable right apical chest tube. No visualized pneumothorax on current study. Background Chronic emphysematous and pulmonary fibrotic change with bibasilar increased opacities. Ca rdiac silhouette stable and within normal limits with atherosclerotic thoracic aorta. Surgical change s left clavicle and cervical spine are redemonstrated. IMPRESSION: No visualized right-sided pneumothorax with right-sided apical chest tube redemonstrated. Background Chronic emphysematous and pulmonary fibrotic changes with bibasilar acute infiltrate and /or atelectasis now present. [facility], , 11/02/2024 7:03 AM
[2024-11-02] MEDS: SERTRALINE 100 MG TAB PO SCH (08:08)
--- NOTE | 2024-11-02 08:49 | P.PN ---
Subjective Progress Note Date: 11/02/24 Principal diagnosis: Traumatic right-sided pneumothorax after fall from ladder, status post chest tube insertion, acute nondisplaced right posterior lateral 10th rib fracture and pulmonary contusion, acute pelvic fracture with small intrapelvic hemorrhage, acute leukocytosis. History of hypertension, hyperlipidemia, COPD, asthma, lung cancer status post left thoracoscopic lung biopsy with chemoradiation, chronic ongoing tobacco dependence, marijuana use The patient was seen and examined laying in bed on the cardiac stepdown unit in no acute distress. Remains in sinus rhythm, hemodynamically stable, remains on 6 liters O2 with oxygen saturation low 90s. Right pleural chest tube in place with no output and no air leak. Pain controlled on current medication regimen, patient using max dose morphine along with norco and toradol. Objective - Vital Signs Vital signs: Vital Signs Temp 98.4 F 11/02/24 08:00 Pulse 88 11/02/24 08:18 Resp 16 11/02/24 08:00 BP 140/89 11/02/24 08:00 Pulse Ox 89 L 11/02/24 08:00 FiO2 Intake & Output 11/01/24 11/02/24 11/02/24 18:59 06:59 18:59 Intake Total 240 10 Output Total 500 Balance 240 -490 Weight 79.379 kg 76.5 kg Intake: IV 10 Invasive Line 2 10 Oral 240 Output: Urine 500 Other: Voiding Method Urinal - Exam CONSTITUTIONAL: Appears comfortable, cooperative, no acute distress RESPIRATORY: Lungs sounds diminished bilaterally. Respirations even, nonlabored. Currently on 6 LPM NC with oxygen saturation 90%. Able to achieve 1000 mL on her incentive spirometry. Strong cough. CARDIOVASCULAR: S1, S2 present. Regular rate and rhythm, sinus rhythm on telemetry. Palpable peripheral pulses bilaterally. No edema present. No calf pain or tenderness noted. SCDs present. GASTROINTESTINAL: Abdomen soft, nontender, nondistended. Active bowel sounds present 4 quadrants. Tolerating diet GENITOURINARY: Continues to void INTEGUMENTARY: Skin is warm and dry NEUROLOGIC: Cranial nerves II through XII intact. MUSKULOSKELETAL: Able to move all extremities, strength equal bilaterally PSYCHIATRIC: Alert and oriented to person place and time, appropriate affect, intact judgment and insight. INVASIVE LINES AND TUBES: Right sided pleural tube present to water seal, no air leak present, no drainage - Allied health notes Allied health notes reviewed: nursing - Labs CBC & Chem 7: 11/02/24 04:44 11/02/24 04:44 Labs: Abnormal Lab Results - Last 24 Hours (Table) 11/01/24 11/01/24 11/02/24 Range/Units 05:59 16:01 04:44 WBC (4.50-10.00) 10*3/uL RBC (4.40-5.60) 10*6/uL Hct (39.6-50.0) % Immature Gran # (0.00-0.04) 10*3/uL Neutrophils # (1.80-7.70) 10*3/uL Lymphocytes # (0.90-5.00) 10*3/uL Monocytes # (0.20-1.00) 10*3/uL Eosinophils # (0.04-0.35) 10*3/uL Sodium 133 L (137-145) mmol/L BUN 39 H (9-20) mg/dL POC Glucose (mg/dL) 112 H (70-110) mg/dL Procalcitonin 1.26 H (0.02-0.50) ng/mL 11/02/24 Range/Units 04:44 WBC 12.80 H (4.50-10.00) 10*3/uL RBC 4.36 L (4.40-5.60) 10*6/uL Hct 39.4 L (39.6-50.0) % Immature Gran # 0.05 H (0.00-0.04) 10*3/uL Neutrophils # 11.02 H (1.80-7.70) 10*3/uL Lymphocytes # 0.66 L (0.90-5.00) 10*3/uL Monocytes # 1.02 H (0.20-1.00) 10*3/uL Eosinophils # 0.02 L (0.04-0.35) 10*3/uL Sodium (137-145) mmol/L BUN (9-20) mg/dL POC Glucose (mg/dL) (70-110) mg/dL Procalcitonin (0.02-0.50) ng/mL - Imaging and Cardiology Chest x-ray: report reviewed, image reviewed Assessment and Plan Assessment: Traumatic right-sided pneumothorax after fall from ladder, status post chest tube insertion Acute nondisplaced right posterior lateral 10th rib fracture and pulmonary contusion Acute pelvic fracture with small intrapelvic hemorrhage Acute leukocytosis, likely reactive History of hypertension Hyperlipidemia COPD Asthma Lung cancer status post left thoracoscopic lung biopsy with chemoradiation Chronic ongoing tobacco dependence, marijuana use Plan: Will discontinue chest tube today Wean oxygen as tolerated, encourage IS use Increase activity as tolerated Pain control per current medication regimen Smoking cessation counseling and education provided, patient should quit smoking Will repeat CXR after chest tube removal, if stable we will sign off as patient may be discharged from our standpoint when ok with other services Medical management of other comorbidities per internal medicine, trauma service and pulmonary/critical care medicine
[2024-11-02 11:27] LABS: Glucose,Whole Blood 100 mg/dL (70-110)
[2024-11-02 11:47] LABS: Basophils # (A) 0.03 10*3/uL (0.00-0.10); Basophils % (A) 0.2 %; HCT 39.1 % (39.6-50.0); HGB 13.9 g/dL (13.0-17.0); Lymphocytes # (A) 0.61 10*3/uL (0.90-5.00); Lymphocytes % (A) 4.2 %; MCH 32.5 pg (27.0-32.0); MCHC 35.5 g/dL (32.0-37.0); MCV 91.4 fL (80.0-97.0); Mean Platelet Volume 9.4 fL (9.5-12.2); Monocytes % (A) 6.9 %; Neutrophils # (A) 12.74 10*3/uL (1.80-7.70); Neutrophils % (A) 88.3 %; Platelet Count 160 10*3/uL (140-440); RBC 4.28 10*6/uL (4.40-5.60); RDW 14.6 % (11.5-14.5); WBC 14.44 10*3/uL (4.50-10.00)
[2024-11-02] MEDS: FUROSEMIDE 10 MG/ML 2 ML VIAL IV ONE (12:14)
--- NOTE | 2024-11-02 12:24 | P.PN ---
Subjective Progress Note Date: 11/02/24 SURGICAL PROGRESS NOTE CHIEF COMPLAINT: Fall with trauma HISTORY OF PRESENT ILLNESS: Patient is on the cardiac floor. He reports his pain is controlled. He does report some shortness of breath. Chest tube remains in place. He is on 6 L of oxygen. Afebrile. WBC 12.8 up to 14.4 hemoglobin 13.9 PHYSICAL EXAM: VITAL SIGNS: Reviewed. GENERAL: Well-developed in no acute distress. CHEST: Right chest tube in place. No use of assessory muscles. Normal chest expansion ABDOMEN: Soft. Nondistended. Nontender. NEUROLOGIC: Alert and oriented. Cranial nerves II through XII grossly intact. Extremities: Able to move all 4 extremities ASSESSMENT: 1. Fall from 25 feet 2. Traumatic right pneumothorax status post chest tube placement 3. Pelvic fracture and small intrapelvic hemorrhage 4. Acute right sacral fracture 5. Acute right L4 and L5 transverse process fractures 6. Right 10th rib fracture nondisplaced and pulmonary contusion 7. Hypertension 8. Nicotine dependence PLAN: -Continue pain management -Encourage incentive spirometer use -Consult PT OT -Consult social work for possible ECF placement -Awaiting back brace -Continue Lovenox for DVT prophylaxis Physician Surgical Asst note has been reviewed by physician. Signing provider agrees with the documented findings, assessment, and plan of care. Objective - Vital Signs Vital signs: Vital Signs Temp 98.1 F 11/02/24 11:31 Pulse 91 11/02/24 11:43 Resp 14 11/02/24 11:31 BP 131/71 11/02/24 11:31 Pulse Ox 88 L 11/02/24 11:31 FiO2 Intake & Output 11/01/24 11/02/24 11/02/24 18:59 06:59 18:59 Intake Total 240 10 Output Total 500 50 Balance 240 -490 -50 Weight 79.379 kg 76.5 kg Intake: IV 10 Invasive Line 2 10 Oral 240 Output: Urine 500 50 Other: Voiding Method Urinal - Labs CBC & Chem 7: 11/02/24 11:27 11/02/24 04:44 Labs: Abnormal Lab Results - Last 24 Hours (Table) 11/01/24 11/01/24 11/02/24 Range/Units 05:59 16:01 04:44 WBC (4.50-10.00) 10*3/uL RBC (4.40-5.60) 10*6/uL Hct (39.6-50.0) % MCH (27.0-32.0) pg MPV (9.5-12.2) fL Immature Gran # (0.00-0.04) 10*3/uL Neutrophils # (1.80-7.70) 10*3/uL Lymphocytes # (0.90-5.00) 10*3/uL Monocytes # (0.20-1.00) 10*3/uL Eosinophils # (0.04-0.35) 10*3/uL Sodium 133 L (137-145) mmol/L BUN 39 H (9-20) mg/dL POC Glucose (mg/dL) 112 H (70-110) mg/dL Procalcitonin 1.26 H (0.02-0.50) ng/mL 11/02/24 11/02/24 Range/Units 04:44 11:27 WBC 12.80 H 14.44 H (4.50-10.00) 10*3/uL RBC 4.36 L 4.28 L (4.40-5.60) 10*6/uL Hct 39.4 L 39.1 L (39.6-50.0) % MCH 32.5 H (27.0-32.0) pg MPV 9.4 L (9.5-12.2) fL Immature Gran # 0.05 H 0.06 H (0.00-0.04) 10*3/uL Neutrophils # 11.02 H 12.74 H (1.80-7.70) 10*3/uL Lymphocytes # 0.66 L 0.61 L (0.90-5.00) 10*3/uL Monocytes # 1.02 H (0.20-1.00) 10*3/uL Eosinophils # 0.02 L 0.00 L (0.04-0.35) 10*3/uL Sodium (137-145) mmol/L BUN (9-20) mg/dL POC Glucose (mg/dL) (70-110) mg/dL Procalcitonin (0.02-0.50) ng/mL
--- NOTE | 2024-11-02 16:25 | P.PN ---
Subjective Progress Note Date: 11/02/24 Principal diagnosis: Traumatic fall, from approximately 20-25 feet, and right sided traumatic pneumothorax requiring chest tube placement Patient is a 64-year-old male with past medical history significant for hypertension, COPD, and lung cancer status post chemo/radiation. Presents emergency department yesterday afternoon by EMS after falling from the roof of a barn. He fell approximately 20 to 25 feet. May have briefly lost consciousness. The trauma team was alerted and evaluated this patient. CT of the brain and C-spine did not show any acute fracture or dislocation of the cervical spine. No acute intracranial hemorrhage or midline shift. Patient did have a right-sided pneumothorax, and is status post right-sided chest tube insertion. Follow-up chest x-ray showing good aeration of the right lung. Follow-up CT of the chest, abdomen, pelvis with contrast showed a tiny residual anterior right basilar pneumothorax with an appropriate placed right-sided chest tube. Probable pulmonary contusion at the right base. Subcutaneous emphysema along the posterior lateral aspect of the right lower ribs with suspected acute nondisplaced fracture of the right posterior lateral 10th rib. Old malunion fracture of the right posterior right ninth rib redemonstrated. Acute comminuted fracture of the right superior and inferior pelvic rami and right upper sacrum along with right L4 and L5 transverse processes. Right superior pelvic rami fracture extends into the anterior wall of the aceta bellum. 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 There is a small amount of acute hemorrhage in the anterior right pelvis and presacral region. No intra-abdominal traumatic injuries noted. No immediate surgical intervention was recommended. CBC with a WBC count of 22, hemoglobin is stable at 16.5 g/dL, platelets 224. CMP: Sodium 134, potassium 4, chloride 97 calcium bicarb 25, BUN 22, creatinine 0.91, glucose 221. Lactic 1.2. LFTs mildly elevated. Urinalysis with small amount of microscopic hematuria and proteinuria. Urine toxicology screen positive for opiates, TCAs, and marijuana. Alcohol level less than 10. Patient currently being evaluated in the emergency department. He is alert and nondistressed. Right chest tube remains in place and is to suction at -20 cm H2O. No airleak noted. No significant drainage in chamber of the atrium. Does endorse some right-sided chest pain at the chest tube insertion site. On 6 L/min nasal cannula. Shallow breathing. A combination of analgesics are ordered including morphine IV push, [place]'s, Tylenol. Patient will need an incentive spirometer. Neurovascular status of lower extremities intact. No saddle anesthesia or loss of bowel or bladder control. Current vital signs: Heart rate 85 bpm, blood pressure 151/104 mmHg, nontachypneic, SpO2 recorded at 96% on 6 L/min nasal cannula. Patient was seen today on 11/02/2024, patient is about the same as yesterday, remains on 6 L nasal cannula, marginal at best. Patient had 1/10 rib fracture with pulmonary contusion and right sided pneumothorax, had a chest tube placed by the ER physician, there is no evidence of air leak, patient has been on waterseal, I believe the patient could have the chest tube removed by thoracic surgery on the case. Chest x-ray today is reassuring. Labs were reviewed WBC is 14.4 hemoglobin 15.9 basic metabolic profile is normal. Objective - Vital Signs Vital signs: Vital Signs Temp 98.1 F 11/02/24 11:31 Pulse 88 11/02/24 15:41 Resp 14 11/02/24 11:31 BP 131/71 11/02/24 11:31 Pulse Ox 88 L 11/02/24 11:31 FiO2 Intake & Output 11/01/24 11/02/24 11/02/24 18:59 06:59 18:59 Intake Total 240 10 Output Total 500 50 Balance 240 -490 -50 Weight 79.379 kg 76.5 kg Intake: IV 10 Invasive Line 2 10 Oral 240 Output: Urine 500 50 Other: Voiding Method Urinal - Exam GENERAL EXAM: Alert, 64-year-old male, fairly comfortable in no apparent distress. On 6 L nasal cannula HEAD: Normocephalic and atraumatic EYES: Normal reaction of pupils, equal size. NOSE: Clear with pink turbinates. THROAT: No erythema or exudates. NECK: No masses, no JVD. CHEST: Right-sided chest tube in place, on waterseal, and no airleak noted. LUNGS: Equal air entry with no crackles, wheeze, rhonchi or dullness. On 6 L/mi n nasal cannula. No conversational dyspnea or accessory muscle use.. CVS: S1 and S2 normal with no audible murmur, regular rhythm. No extra heart sounds ABDOMEN: Abdomen is flat, no unusual bruising or flank bruising, active bowel sounds, no hepatosplenomegaly, no guarding or rigidity. SKIN: No rashes CENTRAL NERVOUS SYSTEM: Alert and oriented x 3 no focal deficit EXTREMITIES: No clubbing edema or cyanosis - Labs CBC & Chem 7: 11/02/24 11:27 11/02/24 04:44 Labs: Abnormal Lab Results - Last 24 Hours (Table) 11/01/24 11/02/24 11/02/24 Range/Units 05:59 04:44 04:44 WBC 12.80 H (4.50-10.00) 10*3/uL RBC 4.36 L (4.40-5.60) 10*6/uL Hct 39.4 L (39.6-50.0) % MCH (27.0-32.0) pg MPV (9.5-12.2) fL Immature Gran # 0.05 H (0.00-0.04) 10*3/uL Neutrophils # 11.02 H (1.80-7.70) 10*3/uL Lymphocytes # 0.66 L (0.90-5.00) 10*3/uL Monocytes # 1.02 H (0.20-1.00) 10*3/uL Eosinophils # 0.02 L (0.04-0.35) 10*3/uL Sodium 133 L (137-145) mmol/L BUN 39 H (9-20) mg/dL Procalcitonin 1.26 H (0.02-0.50) ng/mL 11/02/24 Range/Units 11:27 WBC 14.44 H (4.50-10.00) 10*3/uL RBC 4.28 L (4.40-5.60) 10*6/uL Hct 39.1 L (39.6-50.0) % MCH 32.5 H (27.0-32.0) pg MPV 9.4 L (9.5-12.2) fL Immature Gran # 0.06 H (0.00-0.04) 10*3/uL Neutrophils # 12.74 H (1.80-7.70) 10*3/uL Lymphocytes # 0.61 L (0.90-5.00) 10*3/uL Monocytes # (0.20-1.00) 10*3/uL Eosinophils # 0.00 L (0.04-0.35) 10*3/uL Sodium (137-145) mmol/L BUN (9-20) mg/dL Procalcitonin (0.02-0.50) ng/mL Assessment and Plan Assessment: Impression Traumatic fall, from approximately 20-25 feet, with traumatic right-sided pneumothorax requiring chest tube placement by ER physician. Acute nondisplaced right posterior lateral 10th rib fracture and pulmonary contusion Acute hypoxemic respiratory failure, on 6 L/min nasal cannula, secondary to above Acute pelvic fracture with small intrapelvic hemorrhage; CT of the chest, abdomen, pelvis showing acute comminuted fracture of the right superior and inferior pelvic rami and right upper sacrum along with right L4 and L5 transverse processes. Right superior pelvic rami fracture extends into the anterior wall of the aceta bellum. 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 There is a small amount of acute hemorrhage in the anterior right pelvis and presacral region. No other intra-abdominal traumatic injuries noted. No immediate surgical intervention was recommended. Acute leukocytosis, reactive to trauma Hypertension COPD, stable and active History of lung cancer status post chemoradiation, follows outpatient with his oncologist Dr. Ruiz Current ongoing tobacco dependence, currently 1 pack/day smoker Marijuana smoker Recommendation: Chest tube will likely be removed today by thoracic surgery Continue incentive spirometry Continue bronchodilators Continue pain management as per admitting physician Will continue to follow Time with Patient: Less than 30
[2024-11-02] MEDS: methylPREDNISolone SOD SUCCI 125 MG/2 ML VIAL IV SCH (16:32)
[2024-11-02 16:56] LABS: Glucose,Whole Blood 115 mg/dL (70-110)
[2024-11-02 18:24] LABS: Influenza A Not Detected (Not Detectd); Influenza B Not Detected (Not Detectd); RSV Not Detected (Not Detectd)
[2024-11-02 20:01] LABS: Glucose,Whole Blood 160 mg/dL (70-110)
[2024-11-02] MEDS: SYMBICORT 160-4.5 MCG INHALER INHALATION SCH (20:19)
--- NOTE | 2024-11-02 23:20 | PN ---
PROGRESS NOTE DATE OF SERVICE: 11/02/2024 SUBJECTIVE: This is a 64-year-old gentleman, who was admitted with fall and multiple fractures, had a traumatic right pneumothorax. The patient also had transverse fracture and pubic rami fracture also. The patient is being closely monitored at this time. The most recent chest x-ray showed some opacities in the right side. Procalcitonin is also elevated. PAST MEDICAL HISTORY: Reviewed. HOME MEDICATIONS: Reviewed. REVIEW OF SYSTEMS: Negative except as mentioned earlier. PHYSICAL EXAMINATION: VITAL SIGNS: Pulse is 90, blood pressure 131/70, respirations 14. HEENT: Conjunctivae normal. CARDIOVASCULAR: S1, S2. RESPIRATIONS: Breath sounds diminished at the bases. Bilaterally scattered rhonchi and crackles. ABDOMEN: . LABORATORY DATA: Reviewed. ASSESSMENT: 1. Fall and multiple fractures, also traumatic right pneumothorax, status post chest tube drainage. 2. Possible right lower lobe pneumonia. 3. Hypertension. 4. Right L4-L5 transverse process fracture. 5. Acute pubic rami fracture. 6. Acute right sacral ala fracture. 7. Right femoral head avascular necrosis, rather chronic. 8. Elevated WBC and hyponatremia. 9. Multiple complex medical issues. 10.Asthma and chronic obstructive pulmonary disease. RECOMMENDATIONS: Recommended to continue with current management, continue with symptomatic treatment. Continue with intensive bronchodilators. Empiric antibiotics will be recommended. Otherwise, DVT prophylaxis. Pain management. Closely follow up with multiple consultants. Prognosis is extremely guarded because of the multiple complex medical issues. Further recommendations to follow. The patient is hypoxic at this time, and I would also recommend a short course of steroids also. MMODL / IJN: [id number] /
[2024-11-03 06:02] LABS: Glucose,Whole Blood 132 mg/dL (70-110)
[2024-11-03 07:52] LABS: ALT 34 U/L (4-49); AST 37 U/L (17-59); African American GFR (CKD) >90 (>60 ml/min/1.73 sqM); Albumin 3.7 g/dL (3.5-5.0); Alkaline Phosphatase 95 U/L (38-126); Anion Gap 7 mmol/L; Blood Urea Nitrogen 40 mg/dL (9-20); Calcium 9.4 mg/dL (8.4-10.2); Carbon Dioxide 27 mmol/L (22-30); Chloride 97 mmol/L (98-107); Glucose 125 mg/dL (74-99); Non-African American GFR(CKD) >90 (>60 ml/min/1.73 sqM); Potassium 4.2 mmol/L (3.5-5.1); Sodium 131 mmol/L (137-145); Total Bilirubin 1.1 mg/dL (0.2-1.3); Total Protein 6.8 g/dL (6.3-8.2)
--- NOTE | 2024-11-03 08:13 | P.PN ---
Subjective Progress Note Date: 11/03/24 Principal diagnosis: Traumatic right-sided pneumothorax after fall from ladder, status post chest tube insertion, acute nondisplaced right posterior lateral 10th rib fracture and pulmonary contusion, acute pelvic fracture with small intrapelvic hemorrhage, acute leukocytosis. History of hypertension, hyperlipidemia, COPD, asthma, lung cancer status post left thoracoscopic lung biopsy with chemoradiation, chronic ongoing tobacco dependence, marijuana use The patient was seen and examined eating up in bed on the cardiac stepdown unit in no acute distress eating breakfast. Remains in sinus rhythm, hemodynamically stable, remains on 6 liters O2 with oxygen saturation low 90s. Right pleural chest tube discontinued yesterday without incident, repeat chest x-ray stable. Patient complains of significant pain to his hips, states he has not been given any morphine and wondering if it has been discontinued. Otherwise no new concerns. Objective - Vital Signs Vital signs: Vital Signs Temp 98.9 F 11/03/24 04:00 Pulse 77 11/03/24 08:03 Resp 19 11/03/24 04:00 BP 144/76 11/03/24 04:00 Pulse Ox 83 L 11/03/24 07:54 FiO2 21 11/03/24 07:54 Intake & Output 11/02/24 11/03/24 11/03/24 18:59 06:59 18:59 Intake Total 540 Output Total 590 400 Balance -590 140 Intake: Oral 540 Output: Urine 590 400 Other: Voiding Method Urinal Urinal # Voids 1 - Exam CONSTITUTIONAL: Sitting up in bed on the cardiac unit eating breakfast, cooperative, no acute distress RESPIRATORY: Lungs sounds diminished bilaterally. Respirations even, nonlabored. Currently on 6 LPM NC with oxygen saturation 90%. Able to achieve 1000 mL on her incentive spirometry. Strong cough. CARDIOVASCULAR: S1, S2 present. Regular rate and rhythm, sinus rhythm on telemetry. Palpable peripheral pulses bilaterally. No edema present. No calf pain or tenderness noted. SCDs present. GASTROINTESTINAL: Abdomen soft, nontender, nondistended. Active bowel sounds present 4 quadrants. Tolerating diet GENITOURINARY: Continues to void INTEGUMENTARY: Skin is warm and dry NEUROLOGIC: Cranial nerves II through XII intact. MUSKULOSKELETAL: Able to move all extremities, strength equal bilaterally PSYCHIATRIC: Alert and oriented to person place and time, appropriate affect, intact judgment and insight. - Allied health notes Allied health notes reviewed: nursing - Labs CBC & Chem 7: 11/02/24 11:27 11/03/24 06:56 Labs: Abnormal Lab Results - Last 24 Hours (Table) 11/02/24 11/02/24 11/02/24 Range/Units 11:27 16:53 20:00 WBC 14.44 H (4.50-10.00) 10*3/uL RBC 4.28 L (4.40-5.60) 10*6/uL Hct 39.1 L (39.6-50.0) % MCH 32.5 H (27.0-32.0) pg MPV 9.4 L (9.5-12.2) fL Immature Gran # 0.06 H (0.00-0.04) 10*3/uL Neutrophils # 12.74 H (1.80-7.70) 10*3/uL Lymphocytes # 0.61 L (0.90-5.00) 10*3/uL Eosinophils # 0.00 L (0.04-0.35) 10*3/uL Sodium (137-145) mmol/L Chloride (98-107) mmol/L BUN (9-20) mg/dL Glucose (74-99) mg/dL POC Glucose (mg/dL) 115 H 160 H (70-110) mg/dL 11/03/24 11/03/24 Range/Units 05:58 06:56 WBC (4.50-10.00) 10*3/uL RBC (4.40-5.60) 10*6/uL Hct (39.6-50.0) % MCH (27.0-32.0) pg MPV (9.5-12.2) fL Immature Gran # (0.00-0.04) 10*3/uL Neutrophils # (1.80-7.70) 10*3/uL Lymphocytes # (0.90-5.00) 10*3/uL Eosinophils # (0.04-0.35) 10*3/uL Sodium 131 L (137-145) mmol/L Chloride 97 L (98-107) mmol/L BUN 40 H (9-20) mg/dL Glucose 125 H (74-99) mg/dL POC Glucose (mg/dL) 132 H (70-110) mg/dL - Imaging and Cardiology Chest x-ray: image reviewed Assessment and Plan Assessment: Traumatic right-sided pneumothorax after fall from ladder, status post chest tube insertion Acute nondisplaced right posterior lateral 10th rib fracture and pulmonary contusion Acute pelvic fracture with small intrapelvic hemorrhage Acute leukocytosis, likely reactive History of hypertension Hyperlipidemia COPD Asthma Lung cancer status post left thoracoscopic lung biopsy with chemoradiation Chronic ongoing tobacco dependence, marijuana use Plan: Follow-up chest x-ray stable Wean oxygen as tolerated, encourage IS use Increase activity as tolerated Pain control per current medication regimen Smoking cessation counseling and education provided, patient should quit smoking Will sign off, please call us with any further questions Medical management of other comorbidities per internal medicine, trauma service and pulmonary/critical care medicine
[2024-11-03 08:39] LABS: HGB 12.6 g/dL (13.0-17.0); Lymphocytes # (A) 0.24 10*3/uL (0.90-5.00); Lymphocytes % (A) 1.8 %; MCH 31.4 pg (27.0-32.0); MCV 89.8 fL (80.0-97.0); Mean Platelet Volume 9.7 fL (9.5-12.2); Monocytes # (A) 0.36 10*3/uL (0.20-1.00); Monocytes % (A) 2.7 %; Neutrophils # (A) 12.54 10*3/uL (1.80-7.70); Platelet Count 144 10*3/uL (140-440); RBC 4.01 10*6/uL (4.40-5.60); RDW 14.5 % (11.5-14.5)
--- NOTE | 2024-11-03 08:48 | XR ---
EXAMINATION TYPE: XR chest 1V DATE OF EXAM: 11/03/2024 7:31 AM COMPARISON: 11/02/2024 CLINICAL INDICATION: Male, 64 years old with history of post chest tube removal, TECHNIQUE: XR chest 1V view(s) obtained. FINDINGS: The heart size is normal. The pulmonary vasculature is normal. Some mild increased infiltrate along the right base. Correlate for atelectasis or developing pneumoni a. Right-sided chest tube is been removed. No residual pneumothorax evident. Mild infiltrate is also present at the left base. IMPRESSION: 1. Bibasilar infiltrates greater on the right increasing from comparison. Correlate for atelectasis. 2. No residual pneumothorax identified at this time. Follow-up can be performed as clinically indicat ed [facility], , 11/03/2024 8:45 AM
[2024-11-03 11:22] LABS: Glucose,Whole Blood 167 mg/dL (70-110)
--- NOTE | 2024-11-03 11:28 | P.PN ---
Subjective Progress Note Date: 11/03/24 SURGICAL PROGRESS NOTE CHIEF COMPLAINT: Fall with trauma HISTORY OF PRESENT ILLNESS: Patient's pain is controlled. He is sitting at bedside chair. He is on 6 L of oxygen. He did work with physical therapy. They are recommending inpatient rehab. Chest tube was removed yesterday. Chest x-ray no residual pneumothorax. Bibasilar infiltrates greater on the right increasing from comparison. Correlate for atelectasis. Afebrile. WBC 14.4 down to 13.2 Hgb 12.6. Patient received his back brace. Patient cleared for discharge from orthopedic service and orthospine. No surgical intervention planned. PHYSICAL EXAM: VITAL SIGNS: Reviewed. GENERAL: Well-developed in no acute distress. CHEST: Right chest tube in place. No use of assessory muscles. Normal chest expansion ABDOMEN: Soft. Nondistended. Nontender. NEUROLOGIC: Alert and oriented. Cranial nerves II through XII grossly intact. Extremities: Able to move all 4 extremities ASSESSMENT: 1. Fall from 25 feet 2. Traumatic right pneumothorax status post chest tube placement 3. Pelvic fracture and small intrapelvic hemorrhage 4. Acute right sacral fracture 5. Acute right L4 and L5 transverse process fractures 6. Right 10th rib fracture nondisplaced and pulmonary contusion 7. Hypertension 8. Nicotine dependence PLAN: -Consult placed for inpatient rehab for possible placement. Patient needs to be on 5 L of oxygen prior to discharge for placement. -Possible discharge in 1 to 2 days -Continue pain management -Encourage incentive spirometer use -Increase activity level -Continue Lovenox for DVT prophylaxis Physician Immigration Inspector note has been reviewed by physician. Signing provider agrees with the documented findings, assessment, and plan of care. Objective - Vital Signs Vital signs: Vital Signs Temp 97.6 F 11/03/24 09:51 Pulse 79 11/03/24 09:51 Resp 18 11/03/24 09:51 BP 125/76 11/03/24 09:51 Pulse Ox 94 L 11/03/24 09:51 FiO2 21 11/03/24 07:54 Intake & Output 11/02/24 11/03/24 11/03/24 18:59 06:59 18:59 Intake Total 540 150 Output Total 590 400 Balance -590 140 150 Intake: Oral 540 150 Output: Urine 590 400 Other: Voiding Method Urinal Urinal # Voids 1 1 - Labs CBC & Chem 7: 11/03/24 08:22 11/03/24 06:56 Labs: Abnormal Lab Results - Last 24 Hours (Table) 11/02/24 11/02/24 11/02/24 Range/Units 11:27 16:53 20:00 WBC 14.44 H (4.50-10.00) 10*3/uL RBC 4.28 L (4.40-5.60) 10*6/uL Hgb (13.0-17.0) g/dL Hct 39.1 L (39.6-50.0) % MCH 32.5 H (27.0-32.0) pg MPV 9.4 L (9.5-12.2) fL Immature Gran # 0.06 H (0.00-0.04) 10*3/uL Neutrophils # 12.74 H (1.80-7.70) 10*3/uL Lymphocytes # 0.61 L (0.90-5.00) 10*3/uL Eosinophils # 0.00 L (0.04-0.35) 10*3/uL Sodium (137-145) mmol/L Chloride (98-107) mmol/L BUN (9-20) mg/dL Glucose (74-99) mg/dL POC Glucose (mg/dL) 115 H 160 H (70-110) mg/dL 11/03/24 11/03/24 11/03/24 Range/Units 05:58 06:56 08:22 WBC 13.20 H (4.50-10.00) 10*3/uL RBC 4.01 L (4.40-5.60) 10*6/uL Hgb 12.6 L (13.0-17.0) g/dL Hct 36.0 L (39.6-50.0) % MCH (27.0-32.0) pg MPV (9.5-12.2) fL Immature Gran # 0.06 H (0.00-0.04) 10*3/uL Neutrophils # 12.54 H (1.80-7.70) 10*3/uL Lymphocytes # 0.24 L (0.90-5.00) 10*3/uL Eosinophils # 0.00 L (0.04-0.35) 10*3/uL Sodium 131 L (137-145) mmol/L Chloride 97 L (98-107) mmol/L BUN 40 H (9-20) mg/dL Glucose 125 H (74-99) mg/dL POC Glucose (mg/dL) 132 H (70-110) mg/dL 11/03/24 Range/Units 11:21 WBC (4.50-10.00) 10*3/uL RBC (4.40-5.60) 10*6/uL Hgb (13.0-17.0) g/dL Hct (39.6-50.0) % MCH (27.0-32.0) pg MPV (9.5-12.2) fL Immature Gran # (0.00-0.04) 10*3/uL Neutrophils # (1.80-7.70) 10*3/uL Lymphocytes # (0.90-5.00) 10*3/uL Eosinophils # (0.04-0.35) 10*3/uL Sodium (137-145) mmol/L Chloride (98-107) mmol/L BUN (9-20) mg/dL Glucose (74-99) mg/dL POC Glucose (mg/dL) 167 H (70-110) mg/dL
--- NOTE | 2024-11-03 13:28 | P.PN ---
Subjective Progress Note Date: 11/03/24 Principal diagnosis: Traumatic fall, from approximately 20-25 feet, and right sided traumatic pneumothorax requiring chest tube placement Patient is a 64-year-old male with past medical history significant for hypertension, COPD, and lung cancer status post chemo/radiation. Presents emergency department yesterday afternoon by EMS after falling from the roof of a barn. He fell approximately 20 to 25 feet. May have briefly lost consciousness. The trauma team was alerted and evaluated this patient. CT of the brain and C-spine did not show any acute fracture or dislocation of the cervical spine. No acute intracranial hemorrhage or midline shift. Patient did have a right-sided pneumothorax, and is status post right-sided chest tube insertion. Follow-up chest x-ray showing good aeration of the right lung. Follow-up CT of the chest, abdomen, pelvis with contrast showed a tiny residual anterior right basilar pneumothorax with an appropriate placed right-sided chest tube. Probable pulmonary contusion at the right base. Subcutaneous emphysema along the posterior lateral aspect of the right lower ribs with suspected acute nondisplaced fracture of the right posterior lateral 10th rib. Old malunion fracture of the right posterior right ninth rib redemonstrated. Acute comminuted fracture of the right superior and inferior pelvic rami and right upper sacrum along with right L4 and L5 transverse processes. Right superior pelvic rami fracture extends into the anterior wall of the aceta bellum. 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 There is a small amount of acute hemorrhage in the anterior right pelvis and presacral region. No intra-abdominal traumatic injuries noted. No immediate surgical intervention was recommended. CBC with a WBC count of 22, hemoglobin is stable at 16.5 g/dL, platelets 224. CMP: Sodium 134, potassium 4, chloride 97 calcium bicarb 25, BUN 22, creatinine 0.91, glucose 221. Lactic 1.2. LFTs mildly elevated. Urinalysis with small amount of microscopic hematuria and proteinuria. Urine toxicology screen positive for opiates, TCAs, and marijuana. Alcohol level less than 10. Patient currently being evaluated in the emergency department. He is alert and nondistressed. Right chest tube remains in place and is to suction at -20 cm H2O. No airleak noted. No significant drainage in chamber of the atrium. Does endorse some right-sided chest pain at the chest tube insertion site. On 6 L/min nasal cannula. Shallow breathing. A combination of analgesics are ordered including morphine IV push, [place]'s, Tylenol. Patient will need an incentive spirometer. Neurovascular status of lower extremities intact. No saddle anesthesia or loss of bowel or bladder control. Current vital signs: Heart rate 85 bpm, blood pressure 151/104 mmHg, nontachypneic, SpO2 recorded at 96% on 6 L/min nasal cannula. Patient was seen today on 11/02/2024, patient is about the same as yesterday, remains on 6 L nasal cannula, marginal at best. Patient had / rib fracture with pulmonary contusion and right sided pneumothorax, had a chest tube placed by the ER physician, there is no evidence of air leak, patient has been on waterseal, I believe the patient could have the chest tube removed by thoracic surgery on the case. Chest x-ray today is reassuring. Labs were reviewed WBC is 14.4 hemoglobin 15.9 basic metabolic profile is normal. Patient was seen today on 11/03/2024, patient continues to do fairly well his chest tube was removed and he continues to have fully expanded lung, no evidence of pneumothorax on the chest x-ray today. Bibasilar atelectasis is noted, underlying pulmonary contusion is a possibility based on chest x-ray findings and considering his clinical history patient remains on 6 L nasal cannula with O2 sats of 94% but he felt comfortable even without oxygen applied to his nose. WBC count is 13.2 hemoglobin 12.6 electrolytes are normal renal profile is normal discussed his pulmonary status with the admitting service, and they are considering rehab placement in the next 24 hours. Assuming he is cleared by all consultants. Objective - Vital Signs Vital signs: Vital Signs Temp 97.5 F L 11/03/24 11:48 Pulse 80 11/03/24 11:48 Resp 18 11/03/24 11:48 BP 125/78 11/03/24 11:48 Pulse Ox 94 L 11/03/24 11:48 FiO2 21 11/03/24 07:54 Intake & Output 11/02/24 11/03/24 11/03/24 18:59 06:59 18:59 Intake Total 540 150 Output Total 590 400 Balance -590 140 150 Intake: Oral 540 150 Output: Urine 590 400 Other: Voiding Method Urinal Urinal # Voids 1 1 - Exam GENERAL EXAM: Alert, 64-year-old male, fairly comfortable in no apparent distress. On 6 L nasal cannula HEAD: Normocephalic and atraumatic EYES: Normal reaction of pupils, equal size. NOSE: Clear with pink turbinates. THROAT: No erythema or exudates. NECK: No masses, no JVD. CHEST: Chest tube has been removed, and chest x-ray showed no recurrent pneumothorax LUNGS: Equal air entry with no crackles, wheeze, rhonchi or dullness. On 6 L/min nasal cannula. No conversational dyspnea or accessory muscle use.. CVS: S1 and S2 normal with no audible murmur, regular rhythm. No extra heart sounds ABDOMEN: Abdomen is flat, no unusual bruising or flank bruising, active bowel sounds, no hepatosplenomegaly, no guarding or rigidity. SKIN: No rashes CENTRAL NERVOUS SYSTEM: Alert and oriented x 3 no focal deficit EXTREMITIES: No clubbing edema or cyanosis - Labs CBC & Chem 7: 11/03/24 08:22 11/03/24 06:56 Labs: Abnormal Lab Results - Last 24 Hours (Table) 11/02/24 11/02/24 11/03/24 Range/Units 16:53 20:00 05:58 WBC (4.50-10.00) 10*3/uL RBC (4.40-5.60) 10*6/uL Hgb (13.0-17.0) g/dL Hct (39.6-50.0) % Immature Gran # (0.00-0.04) 10*3/uL Neutrophils # (1.80-7.70) 10*3/uL Lymphocytes # (0.90-5.00) 10*3/uL Eosinophils # (0.04-0.35) 10*3/uL Sodium (137-145) mmol/L Chloride (98-107) mmol/L BUN (9-20) mg/dL Glucose (74-99) mg/dL POC Glucose (mg/dL) 115 H 160 H 132 H (70-110) mg/dL 11/03/24 11/03/24 11/03/24 Range/Units 06:56 08:22 11:21 WBC 13.20 H (4.50-10.00) 10*3/uL RBC 4.01 L (4.40-5.60) 10*6/uL Hgb 12.6 L (13.0-17.0) g/dL Hct 36.0 L (39.6-50.0) % Immature Gran # 0.06 H (0.00-0.04) 10*3/uL Neutrophils # 12.54 H (1.80-7.70) 10*3/uL Lymphocytes # 0.24 L (0.90-5.00) 10*3/uL Eosinophils # 0.00 L (0.04-0.35) 10*3/uL Sodium 131 L (137-145) mmol/L Chloride 97 L (98-107) mmol/L BUN 40 H (9-20) mg/dL Glucose 125 H (74-99) mg/dL POC Glucose (mg/dL) 167 H (70-110) mg/dL Assessment and Plan Assessment: Impression Traumatic fall, from approximately 20-25 feet, with traumatic right-sided pneumothorax requiring chest tube placement by ER physician. Acute nondisplaced right posterior lateral 10th rib fracture and pulmonary contusion Acute hypoxemic respiratory failure, on 6 L/min nasal cannula, secondary to above Acute pelvic fracture with small intrapelvic hemorrhage; CT of the chest, abdomen, pelvis showing acute comminuted fracture of the right superior and inferior pelvic rami and right upper sacrum along with right L4 and L5 transverse processes. Right superior pelvic rami fracture extends into the ante rior wall of the aceta bellum. 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 There is a small amount of acute hemorrhage in the anterior right pelvis and presacral region. No other intra-abdominal traumatic injuries noted. No immediate surgical intervention was recommended. Acute leukocytosis, reactive to trauma Hypertension COPD, stable and active History of lung cancer status post chemoradiation, follows outpatient with his oncologist Dr. Ruiz Current ongoing tobacco dependence, currently 1 pack/day smoker Marijuana smoker Recommendation: Continue incentive spirometry Continue bronchodilators Continue pain management as per admitting physician Will clear the patient for rehab discharge if cleared by other consultants in the next 24 hours Will continue to follow Time with Patient: Less than 30
--- NOTE | 2024-11-03 15:12 | P.CONS ---
History of Present Illness - Reason for Consult Consult date: 11/03/24 rehab recommendations - Chief Complaint fall with polytrauma - History of Present Illness Patient is a 64-year-old right handed male who lives with his spouse in a SS home, [address]. Prior to admission, patient was independent with mobility and ADLs. He drives. Both patient and retired. helps care for her father. There are children that live local and can help if needed. Patient with past medical history significant for hypertension, HLD, Asthma, COPD, and lung cancer status post chemo/radiation. He presented to the ED on 10/31/24 after a fall from a barn roof. Apparently the roof gave out and the patient fell approximately 20-25 ft. May have briefly lost consciousness. The trauma team was alerted and evaluated this patient. CT of the brain and C-spine did not show any acute fracture or dislocation of the cervical spine. No acute intracranial hemorrhage or midline shift. Patient did have a right-sided pneumothorax, and is status post right-sided chest tube insertion. Follow-up CT of the chest, abdomen, pelvis with contrast showed a tiny residual anterior right basilar pneumothorax with an appropriate placed right-sided chest tube. Subcutaneous emphysema along the posterior lateral aspect of the right lower ribs with suspected acute nondisplaced fracture of the right posterior lateral 10th rib. Old malunion fracture of the right posterior right ninth rib redemonstrated. Acute comminuted fracture of the right superior and inferior pelvic rami and right upper sacrum along with right L4 and L5 transverse processes. Right superior pelvic rami fracture extends into the anterior wall of the acetabulum. 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 There is a small amount of acute hemorrhage in the anterior right pelvis and presacral region. No intra-abdominal traumatic injuries noted. He was evaluated by Orthopedics, No immediate surgical intervention was recommended. LFTs mildly elevated. Urine toxicology screen positive for opiates, TCAs, and marijuana. Alcohol level less than 10. Patient was able to get chest tube removed. LSO brace was ordered for Lumbar transverse process fractures, He was made TTWB to RLE. PM&R consulted for rehab recommendations. Patient was seen by therapies, Min A with transfers, bed mobility, and gait 3 ft, UB dressing Min A, LB dressing and bathing Mod-Max Assist 11/03/24: Patient states he is doing 'ok'. Still in quite a bit of pain, mostly on his right side pelvis/groin. He denies CP and abdominal pain. He does have some rib pain and SOB with exertion. He is currently on 6L NC, does not wear O2 at home. He reports occasional dizziness when he gets SOB. He reports he has not had a BM since before his injury on 10/31. He has had decreased appetite. Review of Systems reviewed, as above in HPI Past Medical History Past Medical History: Asthma, COPD, Hyperlipidemia, Hypertension, Osteoarthritis (OA) Additional Past Medical History / Comment(s): past hx. of a few "blackouts" per pt., never found anything wrong or cause-nothing since, lung nodule, recent PET scan showed some enlarged lymph nodes per pt. History of cervical spine fusion surgery x 2 most recently 10 years ago with fusion C4-5 C5-6 C6-7 which has been stable for him History of Any Multi-Drug Resistant Organisms: None Reported Past Surgical History: Adenoidectomy, Back Surgery, Tonsillectomy Additional Past Surgical History / Comment(s): CERVICAL PLATES AND SCREWS, CLAVICLE, LEFT KNEE. 04/21/19 left thoroscopy with Bx. Left knee scope Past Anesthesia/Blood Transfusion Reactions: No Reported Reaction Past Psychological History: Depression Smoking Status: Current every day smoker Past Alcohol Use History: None Reported Past Drug Use History: Marijuana - Past Family History Sister(s) Family Medical History: Cancer Additional Family Medical History / Comment(s): breast Father Family Medical History: Congestive Heart Failure (CHF) Medications and Allergies Home Medications Medication Instructions Recorded Confirmed Type Cyclobenzaprine [Flexeril] 10 mg PO HS PRN 06/09/16 10/31/24 History Hydrocodone/Acetaminophen [[place] 1 tab PO DAILY 06/09/16 10/31/24 History 7.5-325] Ibuprofen [Motrin] 800 mg PO TID PRN 06/09/16 10/31/24 History Sertraline [Zoloft] 150 mg PO DAILY 04/20/19 10/31/24 History Budesonide/Glycopyr/Formoterol 2 puff INHALATION DIRECTED 07/16/21 10/31/24 History [Breztri Aerosphere Inhaler] Atorvastatin [Lipitor] 40 mg PO DAILY 10/31/24 10/31/24 History Losartan [Cozaar] 25 mg PO DAILY 10/31/24 10/31/24 History Allergies Allergy/AdvReac Type Severity Reaction Status Date / Time codeine AdvReac GI upset Verified 10/31/24 16:27 Physical Exam Vitals: Vital Signs Temp Pulse Pulse Resp BP Pulse Ox FiO2 11/03/24 11:48 97.5 F L 80 18 125/78 94 L 11/03/24 11:34 74 11/03/24 11:21 76 11/03/24 09:51 97.6 F 79 18 125/76 94 L 11/03/24 08:03 77 11/03/24 07:54 74 83 L 21 11/03/24 04:00 98.9 F 74 19 144/76 90 L 11/02/24 23:17 99.1 F 73 19 101/65 91 L 11/02/24 20:31 90 11/02/24 20:20 87 92 L 11/02/24 20:00 99.0 F 94 18 126/71 91 L 11/02/24 16:58 90 L 11/02/24 16:49 99.2 F 88 16 133/82 88 L 11/02/24 15:41 88 11/02/24 15:29 88 Intake and Output 11/02/24 11/03/24 11/03/24 22:59 06:59 14:59 Intake Total 540 150 Output Total 540 400 Balance 0 -400 150 Intake: Oral 540 150 Output: Urine 540 400 Other: Voiding Method Urinal Urinal # Voids 1 1 General: WDWN male, laying in bed, alert, NAD HEENT: head normocephalic, atraumatic; moist mucous membranes, external ears intact with hearing intact to conversational speech CV: No acute cardiac distress Lungs: on 6L NC, even and non labored respirations on RA Abdomen: soft, NT, ND MSK: full ROM bilateral UE, R > L LE limited secondary to pain. MMT: B/L SABD/EE/EF/HG 5/5, R HF 2/5, R KE 3/5, DF 5/5; L HF 4/5, KE 4/5, DF 5/5 Neuro:Alert, oriented x 4, Speech is clear and fluent CN 2-12 grossly intact Sensation intact to light touch bilateral UE and LEs Coordination: HTS impaired on right due to pain Psych: mood calm, affect appropriate Extremities: calves supple, non tender, no LE edema Skin: intact where exposed, chest tube site not visualized, PIV Results CBC & Chem 7: 11/03/24 08:22 11/03/24 06:56 Labs: Abnormal Lab Results - Last 24 Hours (Table) 11/02/24 11/02/24 11/03/24 Range/Units 16:53 20:00 05:58 WBC (4.50-10.00) 10*3/uL RBC (4.40-5.60) 10*6/uL Hgb (13.0-17.0) g/dL Hct (39.6-50.0) % Immature Gran # (0.00-0.04) 10*3/uL Neutrophils # (1.80-7.70) 10*3/uL Lymphocytes # (0.90-5.00) 10*3/uL Eosinophils # (0.04-0.35) 10*3/uL Sodium (137-145) mmol/L Chloride (98-107) mmol/L BUN (9-20) mg/dL Glucose (74-99) mg/dL POC Glucose (mg/dL) 115 H 160 H 132 H (70-110) mg/dL 11/03/24 11/03/24 11/03/24 Range/Units 06:56 08:22 11:21 WBC 13.20 H (4.50-10.00) 10*3/uL RBC 4.01 L (4.40-5.60) 10*6/uL Hgb 12.6 L (13.0-17.0) g/dL Hct 36.0 L (39.6-50.0) % Immature Gran # 0.06 H (0.00-0.04) 10*3/uL Neutrophils # 12.54 H (1.80-7.70) 10*3/uL Lymphocytes # 0.24 L (0.90-5.00) 10*3/uL Eosinophils # 0.00 L (0.04-0.35) 10*3/uL Sodium 131 L (137-145) mmol/L Chloride 97 L (98-107) mmol/L BUN 40 H (9-20) mg/dL Glucose 125 H (74-99) mg/dL POC Glucose (mg/dL) 167 H (70-110) mg/dL Assessment and Plan Assessment: #Impaired gait and ADLs secondary to Fall from 25 feet resulting in traumatic right pneumothorax and polytrauma -s/p chest tube placement, chest tube was removed now -11/03 patient currently on 6L O2 NC, will need to be 5L or below for IPR # Right sided Pelvic fracture and small intrapelvic hemorrhage -TTWB per Orthopedic team # Acute right sacral fracture #Acute right L4 and L5 transverse process fractures -LSO brace when out of bed #Right 10th rib fracture nondisplaced and pulmonary contusion #Pain Secondary to above -11/03 On Tylenol 650 mg Q 6 prn, [place] 5/325 mg Q 4 hrs prn, Toradol IV 15 mg Q6 hrs, Morphine IV prn -Patient will need to be transitioned off IV pain medications for IPR, Patient takes [place] daily, and Motrin and Flexeril prn at home #DVT Proph -Lovenox SQ Q 12 hrs #Comorbidities: Hypertension, Nicotine dependence, HLD, COPD, asthma, History of lung cancer s/p bx with chemoradiation #Your medical dx and management Dispo: Patient is noted to be below baseline function, would benefit from a structured Inpatient rehabilitation stay with 3 hrs of therapy a day, 6-7 days a week with Physical Therapy, Occupational Therapy and Speech Therapy (if indicated). Patient has medical complexity requiring nursing services, close physician medical management, and interdisciplinary team approach for rehab. Patient is motivated and has good social support. Patient WILL NOT need insurance authorization. Patient is agreeable to IPR. Awaiting medical clearance. Discussed plan for IPR with [facility] Liaison and Case Management at [facility]. Patient seen and examined in collaboration with Dr Richardson. Thank you for consulting our services
--- NOTE | 2024-11-03 15:27 | P.PN ---
Subjective 63-year-old male admitted after a fall and multiple rib fractures leading to traumatic right pneumothorax. Patient is off oxygen at this time patient does not have any questions at this time. Patient is otherwise doing well clinically. REVIEW OF SYSTEMS: All other systems are negative except those mentioned in the HPI PHYSICAL EXAMINATION: GENERAL: The patient is alert and oriented x3, not in any acute distress. Well developed, well nourished. HEENT: Pupils are round and equally reacting to light. EOMI. No scleral icterus. No conjunctival pallor. Normocephalic, atraumatic. No pharyngeal erythema. No thyromegaly. CARDIOVASCULAR: S1 and S2 present. No murmurs, rubs, or gallops. PULMONARY: Chest is clear to auscultation, no wheezing or crackles. ABDOMEN: Soft, nontender, nondistended, normoactive bowel sounds. No palpable organomegaly. MUSCULOSKELETAL: No joint swelling or deformity. EXTREMITIES: No cyanosis, clubbing, or pedal edema. NEUROLOGICAL: Gross neurological examination did not reveal any focal deficits. SKIN: No rashes. Assessment and plan -Multiple rib fractures traumatic pneumothorax - Hypertension L4-L5 transverse process fracture - Pubic rami fracture - Hypovolemic hyponatremia received IV fluids - Acute hypoxic respiratory failure secondary to pneumothorax and rib fractures which improved at this time as well without any significant exacerbation History of lung cancer status post chemoradiation therapy patient is in remission at this time - Nicotine use: Counseling was provided marijuana use counseling was provided Patient is medically stable to be discharged DVT prophylaxis: As per primary service Objective - Vital Signs Vital signs: Vital Signs Temp 97.5 F L 11/03/24 11:48 Pulse 80 11/03/24 11:48 Resp 18 11/03/24 11:48 BP 125/78 11/03/24 11:48 Pulse Ox 94 L 11/03/24 11:48 FiO2 21 11/03/24 07:54 Intake & Output 11/02/24 11/03/24 11/03/24 18:59 06:59 18:59 Intake Total 540 150 Output Total 590 400 Balance -590 140 150 Intake: Oral 540 150 Output: Urine 590 400 Other: Voiding Method Urinal Urinal Urinal # Voids 1 1 - Labs CBC & Chem 7: 11/03/24 08:22 11/03/24 06:56 Labs: Abnormal Lab Results - Last 24 Hours (Table) 11/02/24 11/02/24 11/03/24 Range/Units 16:53 20:00 05:58 WBC (4.50-10.00) 10*3/uL RBC (4.40-5.60) 10*6/uL Hgb (13.0-17.0) g/dL Hct (39.6-50.0) % Immature Gran # (0.00-0.04) 10*3/uL Neutrophils # (1.80-7.70) 10*3/uL Lymphocytes # (0.90-5.00) 10*3/uL Eosinophils # (0.04-0.35) 10*3/uL Sodium (137-145) mmol/L Chloride (98-107) mmol/L BUN (9-20) mg/dL Glucose (74-99) mg/dL POC Glucose (mg/dL) 115 H 160 H 132 H (70-110) mg/dL 11/03/24 11/03/24 11/03/24 Range/Units 06:56 08:22 11:21 WBC 13.20 H (4.50-10.00) 10*3/uL RBC 4.01 L (4.40-5.60) 10*6/uL Hgb 12.6 L (13.0-17.0) g/dL Hct 36.0 L (39.6-50.0) % Immature Gran # 0.06 H (0.00-0.04) 10*3/uL Neutrophils # 12.54 H (1.80-7.70) 10*3/uL Lymphocytes # 0.24 L (0.90-5.00) 10*3/uL Eosinophils # 0.00 L (0.04-0.35) 10*3/uL Sodium 131 L (137-145) mmol/L Chloride 97 L (98-107) mmol/L BUN 40 H (9-20) mg/dL Glucose 125 H (74-99) mg/dL POC Glucose (mg/dL) 167 H (70-110) mg/dL
[2024-11-03 16:34] LABS: Glucose,Whole Blood 293 mg/dL (70-110)
[2024-11-03 20:06] LABS: Glucose,Whole Blood 135 mg/dL (70-110)
[2024-11-04 05:53] LABS: Glucose,Whole Blood 158 mg/dL (70-110)
[2024-11-04 09:16] LABS: Basophils # (A) 0.01 10*3/uL (0.00-0.10); Basophils % (A) 0.1 %; HCT 35.4 % (39.6-50.0); HGB 12.4 g/dL (13.0-17.0); Lymphocytes % (A) 1.6 %; MCH 31.6 pg (27.0-32.0); MCV 90.1 fL (80.0-97.0); Monocytes # (A) 0.41 10*3/uL (0.20-1.00); Monocytes % (A) 3.3 %; Neutrophils % (A) 94.8 %; Platelet Count 155 10*3/uL (140-440); RBC 3.93 10*6/uL (4.40-5.60); RDW 14.5 % (11.5-14.5); WBC 12.45 10*3/uL (4.50-10.00)
[2024-11-04 10:56] LABS: African American GFR (CKD) >90 (>60 ml/min/1.73 sqM); Anion Gap 6 mmol/L; Blood Urea Nitrogen 39 mg/dL (9-20); Calcium 9.2 mg/dL (8.4-10.2); Carbon Dioxide 26 mmol/L (22-30); Chloride 101 mmol/L (98-107); Glucose 165 mg/dL (74-99); Non-African American GFR(CKD) >90 (>60 ml/min/1.73 sqM); Potassium 3.8 mmol/L (3.5-5.1); Sodium 133 mmol/L (137-145)
[2024-11-04 11:27] LABS: Glucose,Whole Blood 243 mg/dL (70-110)
--- NOTE | 2024-11-04 13:43 | P.PN ---
Subjective Progress Note Date: 11/04/24 SURGICAL PROGRESS NOTE CHIEF COMPLAINT: Fall with trauma HISTORY OF PRESENT ILLNESS: Patient is sitting in bed. His pain is controlled. He is still requiring about 6 L of oxygen. On 5 L he is satting around 86%. Nursing staff will continue to wean down on oxygen. Patient has been cleared by consulting physicians for discharge. Patient needs to be on 5 L of oxygen to be discharged to inpatient rehab. PHYSICAL EXAM: VITAL SIGNS: Reviewed. GENERAL: Well-developed in no acute distress. CHEST: Right chest tube in place. No use of assessory muscles. Normal chest expansion ABDOMEN: Soft. Nondistended. Nontender. NEUROLOGIC: Alert and oriented. Cranial nerves II through XII grossly intact. Extremities: Able to move all 4 extremities ASSESSMENT: 1. Fall from 25 feet 2. Traumatic right pneumothorax status post chest tube placement 3. Pelvic fracture and small intrapelvic hemorrhage 4. Acute right sacral fracture 5. Acute right L4 and L5 transverse process fractures 6. Right 10th rib fracture nondisplaced and pulmonary contusion 7. Hypertension 8. Nicotine dependence PLAN: -Continue to work on weaning down on oxygen -Anticipate discharge to inpatient rehab on Thursday -Increase activity level -Continue pain management -Continue Lovenox for DVT prophylaxis Physician Construction Supervisor note has been reviewed by physician. Signing provider agrees with the documented findings, assessment, and plan of care. Objective - Vital Signs Vital signs: Vital Signs Temp 97.6 F 11/04/24 11:35 Pulse 85 11/04/24 13:08 Resp 18 11/04/24 11:35 BP 124/73 11/04/24 11:35 Pulse Ox 90 L 11/04/24 11:35 FiO2 21 11/03/24 07:54 Intake & Output 11/03/24 11/04/24 11/04/24 18:59 06:59 18:59 Intake Total 600 462 Output Total 750 400 Balance 600 -750 62 Intake: Oral 600 462 Output: Urine 750 400 Other: Voiding Method Urinal Urinal Urinal # Voids 1 1 - Labs CBC & Chem 7: 11/04/24 08:10 11/04/24 10:18 Labs: Abnormal Lab Results - Last 24 Hours (Table) 11/03/24 11/03/24 11/04/24 Range/Units 16:32 20:02 05:51 WBC (4.50-10.00) 10*3/uL RBC (4.40-5.60) 10*6/uL Hgb (13.0-17.0) g/dL Hct (39.6-50.0) % Neutrophils # (1.80-7.70) 10*3/uL Lymphocytes # (0.90-5.00) 10*3/uL Eosinophils # (0.04-0.35) 10*3/uL Sodium (137-145) mmol/L BUN (9-20) mg/dL Creatinine (0.66-1.25) mg/dL Glucose (74-99) mg/dL POC Glucose (mg/dL) 293 H 135 H 158 H (70-110) mg/dL 11/04/24 11/04/24 11/04/24 Range/Units 08:10 10:18 11:26 WBC 12.45 H (4.50-10.00) 10*3/uL RBC 3.93 L (4.40-5.60) 10*6/uL Hgb 12.4 L (13.0-17.0) g/dL Hct 35.4 L (39.6-50.0) % Neutrophils # 11.80 H (1.80-7.70) 10*3/uL Lymphocytes # 0.20 L (0.90-5.00) 10*3/uL Eosinophils # 0.00 L (0.04-0.35) 10*3/uL Sodium 133 L (137-145) mmol/L BUN 39 H (9-20) mg/dL Creatinine 0.58 L (0.66-1.25) mg/dL Glucose 165 H (74-99) mg/dL POC Glucose (mg/dL) 243 H (70-110) mg/dL
--- NOTE | 2024-11-04 14:21 | P.PN ---
Subjective Progress Note Date: 11/04/24 Principal diagnosis: Traumatic fall, from approximately 20-25 feet, and right sided traumatic pneumothorax requiring chest tube placement Patient is a 64-year-old male with past medical history significant for hypertension, COPD, and lung cancer status post chemo/radiation. Presents emergency department yesterday afternoon by EMS after falling from the roof of a barn. He fell approximately 20 to 25 feet. May have briefly lost consciousness. The trauma team was alerted and evaluated this patient. CT of the brain and C-spine did not show any acute fracture or dislocation of the cervical spine. No acute intracranial hemorrhage or midline shift. Patient did have a right-sided pneumothorax, and is status post right-sided chest tube insertion. Follow-up chest x-ray showing good aeration of the right lung. Follow-up CT of the chest, abdomen, pelvis with contrast showed a tiny residual anterior right basilar pneumothorax with an appropriate placed right-sided chest tube. Probable pulmonary contusion at the right base. Subcutaneous emphysema along the posterior lateral aspect of the right lower ribs with suspected acute nondisplaced fracture of the right posterior lateral 10th rib. Old malunion fracture of the right posterior right ninth rib redemonstrated. Acute comminuted fracture of the right superior and inferior pelvic rami and right upper sacrum along with right L4 and L5 transverse processes. Right superior pelvic rami fracture extends into the anterior wall of the aceta bellum. 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 There is a small amount of acute hemorrhage in the anterior right pelvis and presacral region. No intra-abdominal traumatic injuries noted. No immediate surgical intervention was recommended. CBC with a WBC count of 22, hemoglobin is stable at 16.5 g/dL, platelets 224. CMP: Sodium 134, potassium 4, chloride 97 calcium bicarb 25, BUN 22, creatinine 0.91, glucose 221. Lactic 1.2. LFTs mildly elevated. Urinalysis with small amount of microscopic hematuria and proteinuria. Urine toxicology screen positive for opiates, TCAs, and marijuana. Alcohol level less than 10. Patient currently being evaluated in the emergency department. He is alert and nondistressed. Right chest tube remains in place and is to suction at -20 cm H2O. No airleak noted. No significant drainage in chamber of the atrium. Does endorse some right-sided chest pain at the chest tube insertion site. On 6 L/min nasal cannula. Shallow breathing. A combination of analgesics are ordered including morphine IV push, [place]'s, Tylenol. Patient will need an incentive spirometer. Neurovascular status of lower extremities intact. No saddle anesthesia or loss of bowel or bladder control. Current vital signs: Heart rate 85 bpm, blood pressure 151/104 mmHg, nontachypneic, SpO2 recorded at 96% on 6 L/min nasal cannula. Patient was seen today on 11/02/2024, patient is about the same as yesterday, remains on 6 L nasal cannula, marginal at best. Patient had / rib fracture with pulmonary contusion and right sided pneumothorax, had a chest tube placed by the ER physician, there is no evidence of air leak, patient has been on waterseal, I believe the patient could have the chest tube removed by thoracic surgery on the case. Chest x-ray today is reassuring. Labs were reviewed WBC is 14.4 hemoglobin 15.9 basic metabolic profile is normal. Patient was seen today on 11/03/2024, patient continues to do fairly well his chest tube was removed and he continues to have fully expanded lung, no evidence of pneumothorax on the chest x-ray today. Bibasilar atelectasis is noted, underlying pulmonary contusion is a possibility based on chest x-ray findings and considering his clinical history patient remains on 6 L nasal cannula with O2 sats of 94% but he felt comfortable even without oxygen applied to his nose. WBC count is 13.2 hemoglobin 12.6 electrolytes are normal renal profile is normal discussed his pulmonary status with the admitting service, and they are considering rehab placement in the next 24 hours. Assuming he is cleared by all consultants. Patient was seen today on 11/04/2024, doing well, no active pulmonary symptoms still requiring O2 at 5 L nasal cannula, patient is not in any distress, may have to be eventually discharged to ECF with oxygen patient was advised to be more active with incentive spirometry. Electrolytes are normal renal profile is normal CBC is normal and I am clearing the patient for discharge on O2 if he is cleared by other consultants Objective - Vital Signs Vital signs: Vital Signs Temp 97.6 F 11/04/24 11:35 Pulse 85 11/04/24 13:08 Resp 18 11/04/24 11:35 BP 124/73 11/04/24 11:35 Pulse Ox 90 L 11/04/24 11:35 FiO2 21 11/03/24 07:54 Intake & Output 11/03/24 11/04/24 11/04/24 18:59 06:59 18:59 Intake Total 600 462 Output Total 750 400 Balance 600 -750 62 Intake: Oral 600 462 Output: Urine 750 400 Other: Voiding Method Urinal Urinal Urinal # Voids 1 1 - Exam GENERAL EXAM: Alert, 64-year-old male, fairly comfortable in no apparent distress. On 5 L nasal cannula HEAD: Normocephalic and atraumatic EYES: Normal reaction of pupils, equal size. NOSE: Clear with pink turbinates. THROAT: No erythema or exudates. NECK: No masses, no JVD. CHEST: Clear bilaterally diminished at the bases no rhonchi no wheezes LUNGS: Equal air entry with no crackles, wheeze, rhonchi or dullness. On 6 L/min nasal cannula. No conversational dyspnea or accessory muscle use.. CVS: S1 and S2 normal with no audible murmur, regular rhythm. No extra heart sounds ABDOMEN: Abdomen is flat, no unusual bruising or flank bruising, active bowel sounds, no hepatosplenomegaly, no guarding or rigidity. SKIN: No rashes CENTRAL NERVOUS SYSTEM: Alert and oriented x 3 no focal deficit EXTREMITIES: No clubbing edema or cyanosis - Labs CBC & Chem 7: 11/04/24 08:10 11/04/24 10:18 Labs: Abnormal Lab Results - Last 24 Hours (Table) 11/03/24 11/03/24 11/04/24 Range/Units 16:32 20:02 05:51 WBC (4.50-10.00) 10*3/uL RBC (4.40-5.60) 10*6/uL Hgb (13.0-17.0) g/dL Hct (39.6-50.0) % Neutrophils # (1.80-7.70) 10*3/uL Lymphocytes # (0.90-5.00) 10*3/uL Eosinophils # (0.04-0.35) 10*3/uL Sodium (137-145) mmol/L BUN (9-20) mg/dL Creatinine (0.66-1.25) mg/dL Glucose (74-99) mg/dL POC Glucose (mg/dL) 293 H 135 H 158 H (70-110) mg/dL 11/04/24 11/04/24 11/04/24 Range/Units 08:10 10:18 11:26 WBC 12.45 H (4.50-10.00) 10*3/uL RBC 3.93 L (4.40-5.60) 10*6/uL Hgb 12.4 L (13.0-17.0) g/dL Hct 35.4 L (39.6-50.0) % Neutrophils # 11.80 H (1.80-7.70) 10*3/uL Lymphocytes # 0.20 L (0.90-5.00) 10*3/uL Eosinophils # 0.00 L (0.04-0.35) 10*3/uL Sodium 133 L (137-145) mmol/L BUN 39 H (9-20) mg/dL Creatinine 0.58 L (0.66-1.25) mg/dL Glucose 165 H (74-99) mg/dL POC Glucose (mg/dL) 243 H (70-110) mg/dL Assessment and Plan Assessment: Impression Traumatic fall, from approximately 20-25 feet, with traumatic right-sided pneumothorax requiring chest tube placement by ER physician. Acute nondisplaced right posterior lateral 10th rib fracture and pulmonary contusion Acute hypoxemic respiratory failure, on 6 L/min nasal cannula, secondary to above Acute pelvic fracture with small intrapelvic hemorrhage; CT of the chest, abdomen, pelvis showing acute comminuted fracture of the right superior and inferior pelvic rami and right upper sacrum along with right L4 and L5 transverse processes. Right superior pelvic rami fracture extends into the anterior wall of the aceta bellum. 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 There is a small amount of acute hemorrhage in the anterior right pelvis and presacral region. No other intra-abdominal traumatic injuries noted. No immediate surgical intervention was recommended. Acute leukocytosis, reactive to trauma Hypertension COPD, stable and active History of lung cancer status post chemoradiation, follows outpatient with his oncologist Dr. Ruiz Current ongoing tobacco dependence, currently 1 pack/day smoker Marijuana smoker Recommendation: Continue incentive spirometry Continue bronchodilators Continue pain management as per admitting physician Cleared for discharge if cleared by other consultants, will need home O2 Will continue to follow Time with Patient: Less than 30
[2024-11-04 16:34] LABS: Glucose,Whole Blood 333 mg/dL (70-110)
[2024-11-04 19:58] LABS: Glucose,Whole Blood 179 mg/dL (70-110)
[2024-11-04] MEDS: MELATONIN 5 MG TABLET PO SCH (20:17)
--- NOTE | 2024-11-04 20:44 | P.PN ---
Subjective Progress Note Date: 11/04/24 63-year-old male admitted after a fall and multiple rib fractures leading to traumatic right pneumothorax. Patient is off oxygen at this time patient does not have any questions at this time. Patient is otherwise doing well clinically. Review of Systems Constitutional: Denied any fatigue denied any fever. Cardio vascular: denied any chest pain, palpitations Gastrointestinal: denied any nausea, vomiting, diarrhea Pulmonary: Denied any shortness of breath cough Neurologic denied any new focal deficits All inpatient medications were reviewed and appropriate changes in these medications as dictated in the interval history and assessment and plan. 11/04/2024 Patient is evaluated today in follow up. Resting in bed comfortably. Chest tube has been removed. He remains on oxygen via nasal cannula at 5L. He has been approved for DC to inpatient rehab however is unable to discharge until he is requiring less than 5L of oxygen. has some concerns regarding his decision making and episodes of agitation. States this has been going on since he had radiation on his brain. Per the . Will follow up with family for this tomorrow. He wound benefit from cognitive evaluation by speech therapy vs. psychiatry. PHYSICAL EXAMINATION: GENERAL: The patient is alert and oriented x3, not in any acute distress. Well developed, well nourished. HEENT: Pupils are round and equally reacting to light. EOMI. No scleral icterus. No conjunctival pallor. Normocephalic, atraumatic. No pharyngeal erythema. No thyromegaly. CARDIOVASCULAR: S1 and S2 present. No murmurs, rubs, or gallops. PULMONARY: Chest is clear to auscultation, no wheezing or crackles. ABDOMEN: Soft, nontender, nondistended, normoactive bowel sounds. No palpable organomegaly. MUSCULOSKELETAL: No joint swelling or deformity. EXTREMITIES: No cyanosis, clubbing, or pedal edema. NEUROLOGICAL: Gross neurological examination did not reveal any focal deficits. SKIN: No rashes. Assessment and plan -Multiple rib fractures traumatic pneumothorax -Fall at home -Hypertension L4-L5 transverse process fracture -Pubic rami fracture -Hypovolemic hyponatremia received IV fluids -Acute hypoxic respiratory failure secondary to pneumothorax and rib fractures which improved at this time as well without any significant exacerbation -History of lung cancer status post chemoradiation therapy patient is in remission at this time -Nicotine use: Counseling was provided marijuana use counseling was provided Patient is medically stable to be discharged DVT prophylaxis: As per primary service Full Code Continue IV ceftriaxone, IV solumedrol Continue oxygen support and wean as tolerated Pulmonology following Continue to encourage incentive spirometry Repeat CBC BMP in the AM The impression and plan of care has been dictated by Monica Dutta, Nurse Practitioner as directed. Dr. Jethro MD I have performed a history and physical examination and medical decision making of this patient, discussed the same with the dictator, and agree with the dictators assessment and plan as written, documented as a scribe. Based on total visit time, I have performed more than 50% of this visit. Objective - Vital Signs Vital signs: Vital Signs Temp 97.6 F 11/04/24 11:35 Pulse 85 11/04/24 13:08 Resp 18 11/04/24 11:35 BP 124/73 11/04/24 11:35 Pulse Ox 90 L 11/04/24 11:35 FiO2 21 11/03/24 07:54 Intake & Output 11/03/24 11/04/24 11/04/24 18:59 06:59 18:59 Intake Total 600 462 Output Total 750 400 Balance 600 -750 62 Intake: Oral 600 462 Output: Urine 750 400 Other: Voiding Method Urinal Urinal Urinal # Voids 1 1 - Labs CBC & Chem 7: 11/04/24 08:10 11/04/24 10:18 Labs: Abnormal Lab Results - Last 24 Hours (Table) 11/03/24 11/03/24 11/04/24 Range/Units 16:32 20:02 05:51 WBC (4.50-10.00) 10*3/uL RBC (4.40-5.60) 10*6/uL Hgb (13.0-17.0) g/dL Hct (39.6-50.0) % Neutrophils # (1.80-7.70) 10*3/uL Lymphocytes # (0.90-5.00) 10*3/uL Eosinophils # (0.04-0.35) 10*3/uL Sodium (137-145) mmol/L BUN (9-20) mg/dL Creatinine (0.66-1.25) mg/dL Glucose (74-99) mg/dL POC Glucose (mg/dL) 293 H 135 H 158 H (70-110) mg/dL 11/04/24 11/04/24 11/04/24 Range/Units 08:10 10:18 11:26 WBC 12.45 H (4.50-10.00) 10*3/uL RBC 3.93 L (4.40-5.60) 10*6/uL Hgb 12.4 L (13.0-17.0) g/dL Hct 35.4 L (39.6-50.0) % Neutrophils # 11.80 H (1.80-7.70) 10*3/uL Lymphocytes # 0.20 L (0.90-5.00) 10*3/uL Eosinophils # 0.00 L (0.04-0.35) 10*3/uL Sodium 133 L (137-145) mmol/L BUN 39 H (9-20) mg/dL Creatinine 0.58 L (0.66-1.25) mg/dL Glucose 165 H (74-99) mg/dL POC Glucose (mg/dL) 243 H (70-110) mg/dL Assessment and Plan Time with Patient: Less than 30
[2024-11-05 05:37] LABS: Basophils # (A) 0.01 10*3/uL (0.00-0.10); Basophils % (A) 0.1 %; HCT 34.2 % (39.6-50.0); HGB 11.7 g/dL (13.0-17.0); Lymphocytes # (A) 0.28 10*3/uL (0.90-5.00); Lymphocytes % (A) 2.4 %; MCH 31.1 pg (27.0-32.0); MCHC 34.2 g/dL (32.0-37.0); Mean Platelet Volume 9.7 fL (9.5-12.2); Monocytes # (A) 0.51 10*3/uL (0.20-1.00); Monocytes % (A) 4.4 %; Neutrophils # (A) 10.72 10*3/uL (1.80-7.70); Neutrophils % (A) 92.7 %; Platelet Count 162 10*3/uL (140-440); RBC 3.76 10*6/uL (4.40-5.60); RDW 14.5 % (11.5-14.5); WBC 11.57 10*3/uL (4.50-10.00)
[2024-11-05 05:55] LABS: African American GFR (CKD) >90 (>60 ml/min/1.73 sqM); Anion Gap 8 mmol/L; Blood Urea Nitrogen 33 mg/dL (9-20); Calcium 9.3 mg/dL (8.4-10.2); Carbon Dioxide 24 mmol/L (22-30); Chloride 102 mmol/L (98-107); Glucose 135 mg/dL (74-99); Non-African American GFR(CKD) >90 (>60 ml/min/1.73 sqM); Potassium 3.7 mmol/L (3.5-5.1); Sodium 134 mmol/L (137-145)
[2024-11-05 06:48] LABS: Glucose,Whole Blood 155 mg/dL (70-110)
--- NOTE | 2024-11-05 10:24 | P.PN ---
Subjective Progress Note Date: 11/05/24 Principal diagnosis: Fall Since patient sitting up in the chair. Says his pain is gradually improving. Most pain involving the right hemipelvis. White blood cell count 11.5, he moglobin 11.7. Patient's oxygen requirements improved down to 5 L. Objective - Vital Signs Vital signs: Vital Signs Temp 97.8 F 11/05/24 07:47 Pulse 56 L 11/05/24 09:19 Resp 18 11/05/24 09:19 BP 127/61 11/05/24 07:47 Pulse Ox 92 L 11/05/24 07:47 FiO2 21 11/03/24 07:54 Intake & Output 11/04/24 11/05/24 11/05/24 18:59 06:59 18:59 Intake Total 580 Output Total 400 300 Balance 180 -300 Weight 49.5 kg Intake: Oral 580 Output: Urine 400 300 Other: Voiding Method Urinal Urinal # Voids 0 - Exam Abdomen: Soft, nontender, nondistended - Labs CBC & Chem 7: 11/05/24 05:20 11/05/24 05:20 Labs: Abnormal Lab Results - Last 24 Hours (Table) 11/04/24 11/04/24 11/04/24 Range/Units 10:18 11:26 16:32 WBC (4.50-10.00) 10*3/uL RBC (4.40-5.60) 10*6/uL Hgb (13.0-17.0) g/dL Hct (39.6-50.0) % Immature Gran # (0.00-0.04) 10*3/uL Neutrophils # (1.80-7.70) 10*3/uL Lymphocytes # (0.90-5.00) 10*3/uL Eosinophils # (0.04-0.35) 10*3/uL Sodium 133 L (137-145) mmol/L BUN 39 H (9-20) mg/dL Creatinine 0.58 L (0.66-1.25) mg/dL Glucose 165 H (74-99) mg/dL POC Glucose (mg/dL) 243 H 333 H (70-110) mg/dL 11/04/24 11/05/24 11/05/24 Range/Units 19:56 05:20 05:20 WBC 11.57 H (4.50-10.00) 10*3/uL RBC 3.76 L (4.40-5.60) 10*6/uL Hgb 11.7 L (13.0-17.0) g/dL Hct 34.2 L (39.6-50.0) % Immature Gran # 0.05 H (0.00-0.04) 10*3/uL Neutrophils # 10.72 H (1.80-7.70) 10*3/uL Lymphocytes # 0.28 L (0.90-5.00) 10*3/uL Eosinophils # 0.00 L (0.04-0.35) 10*3/uL Sodium 134 L (137-145) mmol/L BUN 33 H (9-20) mg/dL Creatinine 0.58 L (0.66-1.25) mg/dL Glucose 135 H (74-99) mg/dL POC Glucose (mg/dL) 179 H (70-110) mg/dL 11/05/24 Range/Units 06:46 WBC (4.50-10.00) 10*3/uL RBC (4.40-5.60) 10*6/uL Hgb (13.0-17.0) g/dL Hct (39.6-50.0) % Immature Gran # (0.00-0.04) 10*3/uL Neutrophils # (1.80-7.70) 10*3/uL Lymphocytes # (0.90-5.00) 10*3/uL Eosinophils # (0.04-0.35) 10*3/uL Sodium (137-145) mmol/L BUN (9-20) mg/dL Creatinine (0.66-1.25) mg/dL Glucose (74-99) mg/dL POC Glucose (mg/dL) 155 H (70-110) mg/dL Assessment and Plan (1) Fall Narrative/Plan: 64-year-old male status post fall with multiple injuries as previously described. Patient improved from a pulmonary standpoint currently. Tolerating diet. Hemoglobin stable. Continue increasing activity per orthopedics. Continue pulmonary toilet. Plan transfer to inpatient rehab at [facility] apparently on Thursday. I am being told they do not accept transfers on the weekend. Current Visit: Yes Status: Acute Code(s): W19.XXXA - UNSPECIFIED FALL, INITIAL ENCOUNTER SNOMED Code(s): 1039414
[2024-11-05 11:39] LABS: Glucose,Whole Blood 177 mg/dL (70-110)
--- NOTE | 2024-11-05 13:10 | P.PN ---
Subjective Progress Note Date: 11/05/24 Patient is a 64-year-old male with past medical history significant for hypertension, COPD, and lung cancer status post chemo/radiation. Presents emergency department yesterday afternoon by EMS after falling from the roof of a barn. He fell approximately 20 to 25 feet. May have briefly lost consciousne ss. The trauma team was alerted and evaluated this patient. CT of the brain and C-spine did not show any acute fracture or dislocation of the cervical spine. No acute intracranial hemorrhage or midline shift. Patient did have a right-sided pneumothorax, and is status post right-sided chest tube insertion. Follow-up chest x-ray showing good aeration of the right lung. Follow-up CT of the chest, abdomen, pelvis with contrast showed a tiny residual anterior right basilar pneumothorax with an appropriate placed right-sided chest tube. Probable pulmonary contusion at the right base. Subcutaneous emphysema along the posterior lateral aspect of the right lower ribs with suspected acute nondi splaced fracture of the right posterior lateral 10th rib. Old malunion fracture of the right posterior right ninth rib redemonstrated. Acute comminuted fracture of the right superior and inferior pelvic rami and right upper sacrum along with right L4 and L5 transverse processes. Right superior pelvic rami fracture extends into the anterior wall of the aceta bellum. 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 There is a small amount of acute hemorrhage in the anterior right pelvis and presacral region. No intra-abdominal traumatic injuries noted. No immediate surgical intervention was recommended. CBC with a WBC count of 22, hemoglobin is stable at 16.5 g/dL, platelets 224. CMP: Sodium 134, potassium 4, chloride 97 calcium bicarb 25, BUN 22, creatinine 0.91, glucose 221. Lactic 1.2. LFTs mildly elevated. Urinalysis with small amount of microscopic hematuria and proteinuria. Urine toxicology screen positive for opiates, TCAs, and marijuana. Alcohol level less than 10. Patient currently being evaluated in the emergency department. He is alert and nondistressed. Right chest tube remains in place and is to suction at -20 cm H2O. No airleak noted. No significant drainage in chamber of the atrium. Does endorse some right-sided chest pain at the chest tube insertion site. On 6 L/min nasal cannula. Shallow breathing. A combination of analgesi cs are ordered including morphine IV push, [place]'s, Tylenol. Patient will need an incentive spirometer. Neurovascular status of lower extremities intact. No saddle anesthesia or loss of bowel or bladder control. Current vital signs: Heart rate 85 bpm, blood pressure 151/104 mmHg, nontachypneic, SpO2 recorded at 96% on 6 L/min nasal cannula. Patient was seen today on 11/02/2024, patient is about the same as yesterday, remains on 6 L nasal cannula, marginal at best. Patient had 1/10 rib fracture with pulmonary contusion and right sided pneumothorax, had a chest tube placed by the ER physician, there is no evidence of air leak, patient has been on waterseal, I believe the patient could have the chest tube removed by thoracic surgery on the case. Chest x-ray today is reassuring. Labs were reviewed WBC is 14.4 hemoglobin 15.9 basic metabolic profile is normal. Patient was seen today on 11/03/2024, patient continues to do fairly well his chest tube was removed and he continues to have fully expanded lung, no evidence of pneumothorax on the chest x-ray today. Bibasilar atelectasis is noted, underlying pulmonary contusion is a possibility based on chest x-ray findings and considering his clinical history patient remains on 6 L nasal cannula with O2 sats of 94% but he felt comfortable even without oxygen applied to his nose. WBC count is 13.2 hemoglobin 12.6 electrolytes are normal renal profile is normal discussed his pulmonary status with the admitting service, and they are considering rehab placement in the next 24 hours. Assuming he is cleared by all consultants. Patient was seen today on 11/04/2024, doing well, no active pulmonary symptoms still requiring O2 at 5 L nasal cannula, patient is not in any distress, may have to be eventually discharged to ECF with oxygen patient was advised to be more active with incentive spirometry. Electrolytes are normal renal profile is normal CBC is normal and I am clearing the patient for discharge on O2 if he is cleared by other consultants The patient is seen today November 05, 2024 in follow-up on the regular medical floor. He is currently sitting up in a chair. Awake and alert in no acute distress. Maintaining O2 saturations in the 90s on 5 L/min per nasal cannula. White count 11.5. Hemoglobin 11.7. Platelets 162. Sodium 134. Potassium 3.7. Bicarb 24. BUN 33. Creatinine 0.58. Glucose 135. He remains on DuoNeb and elations, Symbicort, Solu-Medrol. NicoDerm patch in place. Lovenox for DVT prophylaxis. Pepcid for GI prophylaxis. Remains on antibiotics in the form of ceftriaxone. Objective - Vital Signs Vital signs: Vital Signs Temp 97.8 F 11/05/24 07:47 Pulse 75 11/05/24 12:27 Resp 18 11/05/24 09:19 BP 127/61 11/05/24 07:47 Pulse Ox 92 L 11/05/24 07:47 FiO2 21 11/03/24 07:54 Intake & Output 11/04/24 11/05/24 11/05/24 18:59 06:59 18:59 Intake Total 580 Output Total 400 300 500 Balance 180 -300 -500 Weight 49.5 kg Intake: Oral 580 Output: Urine 400 300 500 Other: Voiding Method Urinal Urinal # Voids 0 - Exam GENERAL EXAM: Alert, disheveled, 64-year-old male, on 5 L nasal cannula, fairly comfortable in no apparent distress. HEAD: Normocephalic. EYES: Normal reaction of pupils, equal size. NOSE: Clear with pink turbinates. THROAT: No erythema or exudates. NECK: No masses, no JVD. CHEST: No chest wall deformity. LUNGS: Equal air entry with no crackles, wheeze, rhonchi or dullness. CVS: S1 and S2 normal with no audible murmur, regular rhythm. ABDOMEN: No hepatosplenomegaly, normal bowel sounds, no guarding or rigidity. SPINE: No scoliosis or deformity SKIN: No rashes CENTRAL NERVOUS SYSTEM: No focal deficits, tone is normal in all 4 extremities. EXTREMITIES: There is no peripheral edema. No clubbing, no cyanosis. Peripheral pulses are intact. - Labs CBC & Chem 7: 11/05/24 05:20 11/05/24 05:20 Labs: Abnormal Lab Results - Last 24 Hours (Table) 11/04/24 11/04/24 11/05/24 Range/Units 16:32 19:56 05:20 WBC 11.57 H (4.50-10.00) 10*3/uL RBC 3.76 L (4.40-5.60) 10*6/uL Hgb 11.7 L (13.0-17.0) g/dL Hct 34.2 L (39.6-50.0) % Immature Gran # 0.05 H (0.00-0.04) 10*3/uL Neutrophils # 10.72 H (1.80-7.70) 10*3/uL Lymphocytes # 0.28 L (0.90-5.00) 10*3/uL Eosinophils # 0.00 L (0.04-0.35) 10*3/uL Sodium (137-145) mmol/L BUN (9-20) mg/dL Creatinine (0.66-1.25) mg/dL Glucose (74-99) mg/dL POC Glucose (mg/dL) 333 H 179 H (70-110) mg/dL 11/05/24 11/05/24 11/05/24 Range/Units 05:20 06:46 11:38 WBC (4.50-10.00) 10*3/uL RBC (4.40-5.60) 10*6/uL Hgb (13.0-17.0) g/dL Hct (39.6-50.0) % Immature Gran # (0.00-0.04) 10*3/uL Neutrophils # (1.80-7.70) 10*3/uL Lymphocytes # (0.90-5.00) 10*3/uL Eosinophils # (0.04-0.35) 10*3/uL Sodium 134 L (137-145) mmol/L BUN 33 H (9-20) mg/dL Creatinine 0.58 L (0.66-1.25) mg/dL Glucose 135 H (74-99) mg/dL POC Glucose (mg/dL) 155 H 177 H (70-110) mg/dL Assessment and Plan Assessment: Traumatic fall, from approximately 20-25 feet, with traumatic right-sided pneumothorax requiring chest tube placement by ER physician. Acute nondisplaced right posterior lateral 10th rib fracture and pulmonary contusion Acute hypoxemic respiratory failure, on 6 L/min nasal cannula, secondary to above Acute pelvic fracture with small intrapelvic hemorrhage; CT of the chest, abdomen, pelvis showing acute comminuted fracture of the right superior and inferior pelvic rami and right upper sacrum along with right L4 and L5 transverse processes. Right superior pelvic rami fracture extends into the anterior wall of the aceta bellum. 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 There is a small amount of acute hemorrhage in the anterior right pelvis and presacral region. No other intra-abdominal traumatic injuries noted. No immediate surgical intervention was recommended. Acute leukocytosis, reactive to trauma Hypertension COPD, stable and active History of lung cancer status post chemoradiation, follows outpatient with his oncologist Dr. Ruiz Current ongoing tobacco dependence, currently 1 pack/day smoker Marijuana smoker Plan: The patient was seen and evaluated Labs and medications reviewed Remains on 5 L nasal cannula Remains on DuoNeb and elations Remains on Symbicort Remains on Solu-Medrol Remains on ceftriaxone Lovenox for DVT prophylaxis Pepcid for GI prophylaxis Titrate down the FiO2 as tolerated Increase his activity as tolerated Assure adequate pain control Continue with the incentive spirometer Plan is for inpatient rehab at discharge We will continue to follow I have personally seen and examined the patient, performed the documentation and the assessment and plan as written. Number of minutes spent on the visit: 10 Dictation was produced using [employer] dictation software. Please excuse any grammatical, word or spelling errors.
[2024-11-05 16:13] LABS: Glucose,Whole Blood 133 mg/dL (70-110)
[2024-11-05 20:46] LABS: Glucose,Whole Blood 209 mg/dL (70-110)
--- NOTE | 2024-11-06 05:31 | P.PN ---
Subjective Progress Note Date: 11/05/24 63-year-old male admitted after a fall and multiple rib fractures leading to traumatic right pneumothorax. Patient is off oxygen at this time patient does not have any questions at this time. Patient is otherwise doing well clinically. 11/05/2024 Patient is evaluated today in follow up on the medical floor. He remains on oxygen via nasal cannula at 5L. Encouraged to continue incentive spirometer 10 x an hour while awake. White blood cell count 11.57. Sodium level 134. Review of Systems Constitutional: Denied any fatigue denied any fever. Cardio vascular: denied any chest pain, palpitations Gastrointestinal: denied any nausea, vomiting, diarrhea Pulmonary: Denied any shortness of breath cough Neurologic denied any new focal deficits All inpatient medications were reviewed and appropriate changes in these medications as dictated in the interval history and assessment and plan. 11/04/2024 Patient is evaluated today in follow up. Resting in bed comfortably. Chest tube has been removed. He remains on oxygen via nasal cannula at 5L. He has been approved for DC to inpatient rehab however is unable to discharge until he is requiring less than 5L of oxygen. has some concerns regarding his decision making and episodes of agitation. States this has been going on since he had radiation on his brain. Per the . Will follow up with family for this tomorrow. He wound benefit from cognitive evaluation by speech therapy vs. psychiatry. PHYSICAL EXAMINATION: GENERAL: The patient is alert and oriented x3, not in any acute distress. Well developed, well nourished. HEENT: Pupils are round and equally reacting to light. EOMI. No scleral icterus. No conjunctival pallor. Normocephalic, atraumatic. No pharyngeal erythema. No thyromegaly. CARDIOVASCULAR: S1 and S2 present. No murmurs, rubs, or gallops. PULMONARY: Chest is clear to auscultation, no wheezing or crackles. ABDOMEN: Soft, nontender, nondistended, normoactive bowel sounds. No palpable organomegaly. MUSCULOSKELETAL: No joint swelling or deformity. EXTREMITIES: No cyanosis, clubbing, or pedal edema. NEUROLOGICAL: Gross neurological examination did not reveal any focal deficits. SKIN: No rashes. Assessment and plan -Multiple rib fractures traumatic pneumothorax -Fall at home -Hypertension L4-L5 transverse process fracture -Pubic rami fracture -Hypovolemic hyponatremia received IV fluids -Acute hypoxic respiratory failure secondary to pneumothorax and rib fractures which improved at this time as well without any significant exacerbation -History of lung cancer status post chemoradiation therapy patient is in remission at this time -Nicotine use: Counseling was provided marijuana use counseling was provided Patient is medically stable to be discharged DVT prophylaxis: As per primary service Full Code Continue IV ceftriaxone, IV solumedrol Continue oxygen support and wean as tolerated Pulmonology following Continue to encourage incentive spirometry Repeat CBC BMP in the AM Plan for discharge to [facility] on thursday as long as oxygen has been weaned down below 5L. The impression and plan of care has been dictated by Monica Dutta Nurse Practitioner as directed. Dr. Jethro MD I have performed a history and physical examination and medical decision making of this patient, discussed the same with the dictator, and agree with the dictators assessment and plan as written, documented as a scribe. Based on total visit time, I have performed more than 50% of this visit. Objective - Vital Signs Vital signs: Vital Signs Temp 97.8 F 11/05/24 07:47 Pulse 78 11/05/24 09:16 Resp 18 11/05/24 07:47 BP 127/61 11/05/24 07:47 Pulse Ox 92 L 11/05/24 07:47 FiO2 21 11/03/24 07:54 Intake & Output 11/04/24 11/05/24 11/05/24 18:59 06:59 18:59 Intake Total 580 Output Total 400 300 Balance 180 -300 Weight 49.5 kg Intake: Oral 580 Output: Urine 400 300 Other: Voiding Method Urinal Urinal # Voids 0 - Labs CBC & Chem 7: 11/05/24 05:20 11/05/24 05:20 Labs: Abnormal Lab Results - Last 24 Hours (Table) 11/04/24 11/04/24 11/04/24 Range/Units 10:18 11:26 16:32 WBC (4.50-10.00) 10*3/uL RBC (4.40-5.60) 10*6/uL Hgb (13.0-17.0) g/dL Hct (39.6-50.0) % Immature Gran # (0.00-0.04) 10*3/uL Neutrophils # (1.80-7.70) 10*3/uL Lymphocytes # (0.90-5.00) 10*3/uL Eosinophils # (0.04-0.35) 10*3/uL Sodium 133 L (137-145) mmol/L BUN 39 H (9-20) mg/dL Creatinine 0.58 L (0.66-1.25) mg/dL Glucose 165 H (74-99) mg/dL POC Glucose (mg/dL) 243 H 333 H (70-110) mg/dL 11/04/24 11/05/24 11/05/24 Range/Units 19:56 05:20 05:20 WBC 11.57 H (4.50-10.00) 10*3/uL RBC 3.76 L (4.40-5.60) 10*6/uL Hgb 11.7 L (13.0-17.0) g/dL Hct 34.2 L (39.6-50.0) % Immature Gran # 0.05 H (0.00-0.04) 10*3/uL Neutrophils # 10.72 H (1.80-7.70) 10*3/uL Lymphocytes # 0.28 L (0.90-5.00) 10*3/uL Eosinophils # 0.00 L (0.04-0.35) 10*3/uL Sodium 134 L (137-145) mmol/L BUN 33 H (9-20) mg/dL Creatinine 0.58 L (0.66-1.25) mg/dL Glucose 135 H (74-99) mg/dL POC Glucose (mg/dL) 179 H (70-110) mg/dL 11/05/24 Range/Units 06:46 WBC (4.50-10.00) 10*3/uL RBC (4.40-5.60) 10*6/uL Hgb (13.0-17.0) g/dL Hct (39.6-50.0) % Immature Gran # (0.00-0.04) 10*3/uL Neutrophils # (1.80-7.70) 10*3/uL Lymphocytes # (0.90-5.00) 10*3/uL Eosinophils # (0.04-0.35) 10*3/uL Sodium (137-145) mmol/L BUN (9-20) mg/dL Creatinine (0.66-1.25) mg/dL Glucose (74-99) mg/dL POC Glucose (mg/dL) 155 H (70-110) mg/dL Assessment and Plan Time with Patient: Less than 30
[2024-11-06 06:35] LABS: Glucose,Whole Blood 225 mg/dL (70-110)
[2024-11-06] MEDS: methylPREDNISolone SOD SUCCI 40 MG/ML 1 ML VIAL IV SCH (09:11)
--- NOTE | 2024-11-06 10:32 | P.PN ---
Subjective Progress Note Date: 11/06/24 Patient is a 64-year-old male with past medical history significant for hypertension, COPD, and lung cancer status post chemo/radiation. Presents emergency department yesterday afternoon by EMS after falling from the roof of a barn. He fell approximately 20 to 25 feet. May have briefly lost consciousne ss. The trauma team was alerted and evaluated this patient. CT of the brain and C-spine did not show any acute fracture or dislocation of the cervical spine. No acute intracranial hemorrhage or midline shift. Patient did have a right-sided pneumothorax, and is status post right-sided chest tube insertion. Follow-up chest x-ray showing good aeration of the right lung. Follow-up CT of the chest, abdomen, pelvis with contrast showed a tiny residual anterior right basilar pneumothorax with an appropriate placed right-sided chest tube. Probable pulmonary contusion at the right base. Subcutaneous emphysema along the posterior lateral aspect of the right lower ribs with suspected acute nondi splaced fracture of the right posterior lateral 10th rib. Old malunion fracture of the right posterior right ninth rib redemonstrated. Acute comminuted fracture of the right superior and inferior pelvic rami and right upper sacrum along with right L4 and L5 transverse processes. Right superior pelvic rami fracture extends into the anterior wall of the aceta bellum. 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 There is a small amount of acute hemorrhage in the anterior right pelvis and presacral region. No intra-abdominal traumatic injuries noted. No immediate surgical intervention was recommended. CBC with a WBC count of 22, hemoglobin is stable at 16.5 g/dL, platelets 224. CMP: Sodium 134, potassium 4, chloride 97 calcium bicarb 25, BUN 22, creatinine 0.91, glucose 221. Lactic 1.2. LFTs mildly elevated. Urinalysis with small amount of microscopic hematuria and proteinuria. Urine toxicology screen positive for opiates, TCAs, and marijuana. Alcohol level less than 10. Patient currently being evaluated in the emergency department. He is alert and nondistressed. Right chest tube remains in place and is to suction at -20 cm H2O. No airleak noted. No significant drainage in chamber of the atrium. Does endorse some right-sided chest pain at the chest tube insertion site. On 6 L/min nasal cannula. Shallow breathing. A combination of analgesi cs are ordered including morphine IV push, [place]'s, Tylenol. Patient will need an incentive spirometer. Neurovascular status of lower extremities intact. No saddle anesthesia or loss of bowel or bladder control. Current vital signs: Heart rate 85 bpm, blood pressure 151/104 mmHg, nontachypneic, SpO2 recorded at 96% on 6 L/min nasal cannula. Patient was seen today on 11/02/2024, patient is about the same as yesterday, remains on 6 L nasal cannula, marginal at best. Patient had 1/10 rib fracture with pulmonary contusion and right sided pneumothorax, had a chest tube placed by the ER physician, there is no evidence of air leak, patient has been on waterseal, I believe the patient could have the chest tube removed by thoracic surgery on the case. Chest x-ray today is reassuring. Labs were reviewed WBC is 14.4 hemoglobin 15.9 basic metabolic profile is normal. Patient was seen today on 11/03/2024, patient continues to do fairly well his chest tube was removed and he continues to have fully expanded lung, no evidence of pneumothorax on the chest x-ray today. Bibasilar atelectasis is noted, underlying pulmonary contusion is a possibility based on chest x-ray findings and considering his clinical history patient remains on 6 L nasal cannula with O2 sats of 94% but he felt comfortable even without oxygen applied to his nose. WBC count is 13.2 hemoglobin 12.6 electrolytes are normal renal profile is normal discussed his pulmonary status with the admitting service, and they are considering rehab placement in the next 24 hours. Assuming he is cleared by all consultants. Patient was seen today on 11/04/2024, doing well, no active pulmonary symptoms still requiring O2 at 5 L nasal cannula, patient is not in any distress, may have to be eventually discharged to ECF with oxygen patient was advised to be more active with incentive spirometry. Electrolytes are normal renal profile is normal CBC is normal and I am clearing the patient for discharge on O2 if he is cleared by other consultants The patient is seen today November 05, 2024 in follow-up on the regular medical floor. He is currently sitting up in a chair. Awake and alert in no acute distress. Maintaining O2 saturations in the 90s on 5 L/min per nasal cannula. White count 11.5. Hemoglobin 11.7. Platelets 162. Sodium 134. Potassium 3.7. Bicarb 24. BUN 33. Creatinine 0.58. Glucose 135. He remains on DuoNeb and elations, Symbicort, Solu-Medrol. NicoDerm patch in place. Lovenox for DVT prophylaxis. Pepcid for GI prophylaxis. Remains on antibiotics in the form of ceftriaxone. The patient is seen today November 06, 2024 in follow-up on the regular medical floor. He is O2 saturations in the 90s on 2 L/min per nasal cannula. He denies any significant cough or congestion. No worsening shortness of breath. No fever or chills. He has been afebrile. Hemodynamically stable. Remains on DuoNeb inhalations, Symbicort, Solu-Medrol. NicoDerm patch in place. Lovenox for DVT prophylaxis. Remains on ceftriaxone. Glucose 225. He is working well with the incentive spirometer. Objective - Vital Signs Vital signs: Vital Signs Temp 97.8 F 11/06/24 07:15 Pulse 74 11/06/24 09:35 Resp 18 11/06/24 09:35 BP 148/79 11/06/24 07:15 Pulse Ox 100 11/06/24 07:15 FiO2 21 11/03/24 07:54 Intake & Output 11/05/24 11/06/24 11/06/24 18:59 06:59 18:59 Output Total 1700 900 Balance -1700 -900 Weight 52.5 kg Output: Urine 1700 900 Other: Voiding Method Urinal Urinal # Voids 3 - Exam GENERAL EXAM: Alert, pleasant 64-year-old male, on 2 L nasal cannula, fairly comfortable in no apparent distress. HEAD: Normocephalic. EYES: Normal reaction of pupils, equal size. NOSE: Clear with pink turbinates. THROAT: No erythema or exudates. NECK: No masses, no JVD. CHEST: No chest wall deformity. LUNGS: Equal air entry with no crackles, wheeze, rhonchi or dullness. CVS: S1 and S2 normal with no audible murmur, regular rhythm. ABDOMEN: No hepatosplenomegaly, normal bowel sounds, no guarding or rigidity. SPINE: No scoliosis or deformity SKIN: No rashes CENTRAL NERVOUS SYSTEM: No focal deficits, tone is normal in all 4 extremities. EXTREMITIES: There is no peripheral edema. No clubbing, no cyanosis. Peripheral pulses are intact. - Labs CBC & Chem 7: 11/05/24 05:20 11/05/24 05:20 Labs: Abnormal Lab Results - Last 24 Hours (Table) 11/05/24 11/05/24 11/05/24 Range/Units 11:38 16:11 20:45 POC Glucose (mg/dL) 177 H 133 H 209 H (70-110) mg/dL 11/06/24 Range/Units 06:33 POC Glucose (mg/dL) 225 H (70-110) mg/dL Assessment and Plan Assessment: Traumatic fall, from approximately 20-25 feet, with traumatic right-sided pneumothorax requiring chest tube placement by ER physician. Pneumothorax resolved and subsequent chest tube removal November 02, 2024 Acute nondisplaced right posterior lateral 10th rib fracture and pulmonary contusion Acute hypoxemic respiratory failure, on 6 L/min nasal cannula, secondary to above Acute pelvic fracture with small intrapelvic hemorrhage; CT of the chest, abdomen, pelvis showing acute comminuted fracture of the right superior and inferior pelvic rami and right upper sacrum along with right L4 and L5 transverse processes. Right superior pelvic rami fracture extends into the anterior wall of the aceta bellum. 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 There is a small amount of acute hemorrhage in the anterior right pelvis and presacral region. No other intra-abdominal traumatic injuries noted. No immediate surgical intervention was recommended. Acute leukocytosis, reactive to trauma, improved Hypertension COPD, stable and active History of lung cancer status post chemoradiation, follows outpatient with his oncologist Dr. Ruiz Current ongoing tobacco dependence, currently 1 pack/day smoker Marijuana smoker Plan: The patient was seen and evaluated Medications reviewed Remains on 2 L nasal cannula Remains on DuoNeb inhalations, Symbicort Discontinue Solu-Medrol Initiated a prednisone taper Remains on ceftriaxone Lovenox for DVT prophylaxis Pepcid for GI prophylaxis Titrate down the FiO2 as tolerated Increase his activity as tolerated Assure adequate pain control Continue with the incentive spirometer Plan is for inpatient rehab tomorrow Discussed the plan of care with the patient who verbalizes understanding and is agreeable to the plan This patient was seen independently by the pulmonary nurse practitioner addressing pulmonary issues I have personally seen and examined the patient, performed the documentation and the assessment and plan as written. Number of minutes spent on the visit: 25 Dictation was produced using [employer] software. Please excuse any grammatical, word or spelling errors.
--- NOTE | 2024-11-06 10:33 | P.PN ---
Subjective Progress Note Date: 11/06/24 Principal diagnosis: Fall Patient doing well today. Says his pain continues to slowly improve. No worsening pulmonary symptoms. Objective - Vital Signs Vital signs: Vital Signs Temp 97.8 F 11/06/24 07:15 Pulse 74 11/06/24 09:35 Resp 18 11/06/24 09:35 BP 148/79 11/06/24 07:15 Pulse Ox 100 11/06/24 07:15 FiO2 21 11/03/24 07:54 Intake & Output 11/05/24 11/06/24 11/06/24 18:59 06:59 18:59 Output Total 1700 900 Balance -1700 -900 Weight 52.5 kg Output: Urine 1700 900 Other: Voiding Method Urinal Urinal # Voids 3 - Exam Abdomen: Soft, nontender, nondistended - Labs CBC & Chem 7: 11/05/24 05:20 11/05/24 05:20 Labs: Abnormal Lab Results - Last 24 Hours (Table) 11/05/24 11/05/24 11/05/24 Range/Units 11:38 16:11 20:45 POC Glucose (mg/dL) 177 H 133 H 209 H (70-110) mg/dL 11/06/24 Range/Units 06:33 POC Glucose (mg/dL) 225 H (70-110) mg/dL Assessment and Plan (1) Fall Narrative/Plan: Patient is stable at this time. Continue gradually increasing activity as per orthopedics. Continue weaning oxygen as tolerated. Await transfer to inpatient rehab tomorrow. Current Visit: Yes Status: Acute Code(s): W19.XXXA - UNSPECIFIED FALL, INITIAL ENCOUNTER SNOMED Code(s): 3544416
[2024-11-06 11:54] LABS: Glucose,Whole Blood 157 mg/dL (70-110)
--- NOTE | 2024-11-06 12:43 | P.PN ---
Subjective Progress Note Date: 11/06/24 63-year-old male admitted after a fall and multiple rib fractures leading to traumatic right pneumothorax. Patient is off oxygen at this time patient does not have any questions at this time. Patient is otherwise doing well clinically. 11/05/2024 Patient is evaluated today in follow up on the medical floor. He remains on oxygen via nasal cannula at 5L. Encouraged to continue incentive spirometer 10 x an hour while awake. White blood cell count 11.57. Sodium level 134. 11/06/2024 Patient is eval seen in follow-up in the medical floor. He is having no acute complaints at this time. Patient remains on IV Solu-Medrol 40 mg every 12 hours. He is currently weaned down to 2 L of oxygen via nasal cannula with saturations of 98%. He reports no significant shortness of breath or chest discomfort at this time. He is continue to use his incentive spirometer. Patient stable to discharge to [facility] inpatient rehabilitation center tomorrow as his oxygen requirements have decreased. Review of Systems Constitutional: Denied any fatigue denied any fever. Cardio vascular: denied any chest pain, palpitations Gastrointestinal: denied any nausea, vomiting, diarrhea Pulmonary: Denied any shortness of breath cough Neurologic denied any new focal deficits All inpatient medications were reviewed and appropriate changes in these medications as dictated in the interval history and assessment and plan. 11/04/2024 Patient is evaluated today in follow up. Resting in bed comfortably. Chest tube has been removed. He remains on oxygen via nasal cannula at 5L. He has been approved for DC to inpatient rehab however is unable to discharge until he is requiring less than 5L of oxygen. has some concerns regarding his decision making and episodes of agitation. States this has been going on since he had radiation on his brain. Per the . Will follow up with family for this tomorrow. He wound benefit from cognitive evaluation by speech therapy vs. psychiatry. PHYSICAL EXAMINATION: GENERAL: The patient is alert and oriented x3, not in any acute distress. Well developed, well nourished. HEENT: Pupils are round and equally reacting to light. EOMI. No scleral icterus. No conjunctival pallor. Normocephalic, atraumatic. No pharyngeal erythema. No thyromegaly. CARDIOVASCULAR: S1 and S2 present. No murmurs, rubs, or gallops. PULMONARY: Chest is clear to auscultation, no wheezing or crackles. ABDOMEN: Soft, nontender, nondistended, normoactive bowel sounds. No palpable organomegaly. MUSCULOSKELETAL: No joint swelling or deformity. EXTREMITIES: No cyanosis, clubbing, or pedal edema. NEUROLOGICAL: Gross neurological examination did not reveal any focal deficits. SKIN: No rashes. Assessment and plan -Multiple rib fractures traumatic pneumothorax -Fall at home -Hypertension L4-L5 transverse process fracture -Pubic rami fracture -Hypovolemic hyponatremia received IV fluids -Acute hypoxic respiratory failure secondary to pneumothorax and rib fractures w hich improved at this time as well without any significant exacerbation -History of lung cancer status post chemoradiation therapy patient is in remission at this time -Nicotine use: Counseling was provided marijuana use counseling was provided Patient is medically stable to be discharged DVT prophylaxis: As per primary service Full Code Continue IV ceftriaxone, IV solumedrol Continue oxygen support and wean as tolerated Pulmonology following Continue to encourage incentive spirometry Repeat CBC BMP in the AM Plan for discharge to [facility] on thursday as long as oxygen has been weaned down below 5L. The impression and plan of care has been dictated by Monica Dutta Nurse Practitioner as directed. Dr. Jethro MD I have performed a history and physical examination and medical decision making of this patient, discussed the same with the dictator, and agree with the dictators assessment and plan as written, documented as a scribe. Based on total visit time, I have performed more than 50% of this visit. Objective - Vital Signs Vital signs: Vital Signs Temp 97.8 F 11/06/24 07:15 Pulse 74 11/06/24 09:35 Resp 18 11/06/24 09:35 BP 148/79 11/06/24 07:15 Pulse Ox 100 11/06/24 07:15 FiO2 21 11/03/24 07:54 Intake & Output 11/05/24 11/06/24 11/06/24 18:59 06:59 18:59 Output Total 1700 900 Balance -1700 -900 Weight 52.5 kg Output: Urine 1700 900 Other: Voiding Method Urinal Urinal # Voids 3 - Labs CBC & Chem 7: 11/05/24 05:20 11/05/24 05:20 Labs: Abnormal Lab Results - Last 24 Hours (Table) 11/05/24 11/05/24 11/06/24 Range/Units 16:11 20:45 06:33 POC Glucose (mg/dL) 133 H 209 H 225 H (70-110) mg/dL 11/06/24 Range/Units 11:53 POC Glucose (mg/dL) 157 H (70-110) mg/dL Assessment and Plan Time with Patient: Less than 30
[2024-11-06 16:40] LABS: Glucose,Whole Blood 174 mg/dL (70-110)
[2024-11-06 21:06] LABS: Glucose,Whole Blood 101 mg/dL (70-110)
[2024-11-07 06:22] LABS: Glucose,Whole Blood 80 mg/dL (70-110)
[2024-11-07 08:53] LABS: Basophils # (A) 0.04 X 10*3/uL (0.00-0.10); Basophils % (A) 0.4 %; Eosinophils # (A) 0.01 X 10*3/uL (0.04-0.35); Eosinophils % (A) 0.1 %; HCT 35.2 % (39.6-50.0); HGB 11.8 g/dL (13.0-17.0); Lymphocytes # (A) 1.41 X 10*3/uL (0.90-5.00); Lymphocytes % (A) 12.6 %; MCH 30.7 pg (27.0-32.0); MCHC 33.5 g/dL (32.0-37.0); MCV 91.7 FL (80.0-97.0); Mean Platelet Volume 9.9 FL (9.5-12.2); Monocytes % (A) 8.9 %; NRBC Per 100 WBC 0 X 10*3/uL (0.00-0.01); Neutrophils # (A) 8.66 X 10*3/uL (1.80-7.70); Neutrophils % (A) 77.2 %; Platelet Count 190 X 10*3/uL (140-440); RBC 3.84 X 10*6/uL (4.40-5.60); RDW 14.5 % (11.5-14.5); WBC 11.21 X 10*3/uL (4.50-10.00)
[2024-11-07 09:00] LABS: Calcium 8.7 mg/dL (8.7-10.3); Carbon Dioxide 24.2 mmol/L (21.6-31.8); Chloride 99 mmol/L (96-109); Glucose 86 mg/dL (70-110); Potassium 3.8 mmol/L (3.5-5.5); Sodium 132 mmol/L (135-145)
[2024-11-07] MEDS: predniSONE 10 MG TAB PO SCH (09:46)
[2024-11-07] MEDS: polyethylene glycoL 3350 17 GM POWD.PACK PO SCH (12:15)
[2024-11-07] MEDS: DOCUSATE 100 MG CAP PO SCH (12:15)
[2024-11-07 12:26] LABS: Glucose,Whole Blood 158 mg/dL (70-110)
--- NOTE | 2024-11-07 12:43 | P.PN ---
Subjective Progress Note Date: 11/07/24 SURGICAL PROGRESS NOTE CHIEF COMPLAINT: Fall with trauma HISTORY OF PRESENT ILLNESS: Patient is sitting up at bedside chair. He does complain of pain. Reports that the pain medication does help. He does complain of constipation. No bowel movement for several days. Denies any vomiting. He is having flatus. He is on 3 L oxygen. Afebrile. WBC is 11.21 Hgb 11.8 PHYSICAL EXAM: VITAL SIGNS: Reviewed. GENERAL: Well-developed in no acute distress. CHEST: Right chest tube in place. No use of assessory muscles. Normal chest expansion ABDOMEN: Soft. Nondistended. Nontender. NEUROLOGIC: Alert and oriented. Cranial nerves II through XII grossly intact. Extremities: Able to move all 4 extremities ASSESSMENT: 1. Fall from 25 feet 2. Traumatic right pneumothorax status post chest tube placement 3. Pelvic fracture and small intrapelvic hemorrhage 4. Acute right sacral fracture 5. Acute right L4 and L5 transverse process fractures 6. Right 10th rib fracture nondisplaced and pulmonary contusion 7. Hypertension 8. Nicotine dependence PLAN: -Anticipate discharge to inpatient rehab tomorrow -Add Colace and MiraLAX for constipation -Continue pain management -Encourage incentive spirometer use -Continue Lovenox for DVT prophylaxis Physician Starchmaker note has been reviewed by physician. Signing provider agrees with the documented findings, assessment, and plan of care. Objective - Vital Signs Vital signs: Vital Signs Temp 97.5 F L 11/07/24 06:45 Pulse 65 11/07/24 06:45 Resp 17 11/07/24 06:45 BP 149/82 11/07/24 06:45 Pulse Ox 94 L 11/07/24 10:41 FiO2 21 11/03/24 07:54 Intake & Output 11/06/24 11/07/24 11/07/24 18:59 06:59 18:59 Intake Total 500 150 Output Total 1080 400 Balance -1080 100 150 Intake: Oral 500 150 Output: Urine 1080 400 Other: Voiding Method Urinal Urinal # Bowel Movements 1 - Labs CBC & Chem 7: 11/07/24 03:58 11/07/24 03:58 Labs: Abnormal Lab Results - Last 24 Hours (Table) 11/06/24 11/07/24 11/07/24 Range/Units 16:39 03:58 03:58 WBC 11.21 H (4.50-10.00) X 10*3/uL RBC 3.84 L (4.40-5.60) X 10*6/uL Hgb 11.8 L (13.0-17.0) g/dL Hct 35.2 L (39.6-50.0) % Immature Gran # 0.09 H (0.00-0.04) X 10*3/uL Neutrophils # 8.66 H (1.80-7.70) X 10*3/uL Eosinophils # 0.01 L (0.04-0.35) X 10*3/uL Sodium 132 L (135-145) mmol/L Creatinine 0.5 L (0.6-1.5) mg/dL BUN/Creatinine Ratio 38.00 H (12.00-20.00) Ratio POC Glucose (mg/dL) 174 H (70-110) mg/dL 11/07/24 Range/Units 12:22 WBC (4.50-10.00) X 10*3/uL RBC (4.40-5.60) X 10*6/uL Hgb (13.0-17.0) g/dL Hct (39.6-50.0) % Immature Gran # (0.00-0.04) X 10*3/uL Neutrophils # (1.80-7.70) X 10*3/uL Eosinophils # (0.04-0.35) X 10*3/uL Sodium (135-145) mmol/L Creatinine (0.6-1.5) mg/dL BUN/Creatinine Ratio (12.00-20.00) Ratio POC Glucose (mg/dL) 158 H (70-110) mg/dL
--- NOTE | 2024-11-07 14:09 | P.PN ---
Subjective Progress Note Date: 11/07/24 63-year-old male admitted after a fall and multiple rib fractures leading to traumatic right pneumothorax. Patient is off oxygen at this time patient does not have any questions at this time. Patient is otherwise doing well clinically. 11/05/2024 Patient is evaluated today in follow up on the medical floor. He remains on oxygen via nasal cannula at 5L. Encouraged to continue incentive spirometer 10 x an hour while awake. White blood cell count 11.57. Sodium level 134. 11/06/2024 Patient is eval seen in follow-up in the medical floor. He is having no acute complaints at this time. Patient remains on IV Solu-Medrol 40 mg every 12 hours. He is currently weaned down to 2 L of oxygen via nasal cannula with saturations of 98%. He reports no significant shortness of breath or chest discomfort at this time. He is continue to use his incentive spirometer. Patient stable to discharge to [facility] inpatient rehabilitation [place] tomorrow as his oxygen requirements have decreased. 11/07/2024 Patient is evaluated in follow-up on the medical floor. He is up in the bathroom try to have a bowel movement. Feels constipated. Colace and MiraLAX have been added today by general surgery. He remains on oxygen via nasal cannula between 2 to 3 L.His lungs are diminished but essentially clear he does continue to use his incentive spirometer. He is a possible discharge to [facility] tomorrow. Labs today reveal white blood cell count 11.21, hemoglobin 11.8, sodium of 132, BUN of 19 creatinine of 0.5. Review of Systems Constitutional: Denied any fatigue denied any fever. Cardio vascular: denied any chest pain, palpitations Gastrointestinal: denied any nausea, vomiting, diarrhea Pulmonary: Denied any shortness of breath cough Neurologic denied any new focal deficits All inpatient medications were reviewed and appropriate changes in these medications as dictated in the interval history and assessment and plan. 11/04/2024 Patient is evaluated today in follow up. Resting in bed comfortably. Chest tube has been removed. He remains on oxygen via nasal cannula at 5L. He has been approved for DC to inpatient rehab however is unable to discharge until he is requiring less than 5L of oxygen. has some concerns regarding his decision making and episodes of agitation. States this has been going on since he had radiation on his brain. Per the . Will follow up with family for this tomorrow. He wound benefit from cognitive evaluation by speech therapy vs. psychiatry. PHYSICAL EXAMINATION: GENERAL: The patient is alert and oriented x3, not in any acute distress. Well developed, well nourished. HEENT: Pupils are round and equally reacting to light. EOMI. No scleral icterus. No conjunctival pallor. Normocephalic, atraumatic. No pharyngeal erythema. No thyromegaly. CARDIOVASCULAR: S1 and S2 present. No murmurs, rubs, or gallops. PULMONARY: Chest is clear to auscultation, no wheezing or crackles. ABDOMEN: Soft, nontender, nondistended, normoactive bowel sounds. No palpable organomegaly. MUSCULOSKELETAL: No joint swelling or deformity. EXTREMITIES: No cyanosis, clubbing, or pedal edema. NEUROLOGICAL: Gross neurological examination did not reveal any focal deficits. SKIN: No rashes. Assessment and plan -Multiple rib fractures traumatic pneumothorax -Fall at home -Hypertension L4-L5 transverse process fracture -Pubic rami fracture -Hypovolemic hyponatremia received IV fluids -Acute hypoxic respiratory failure secondary to pneumothorax and rib fractures which improved at this time as well without any significant exacerbation -History of lung cancer status post chemoradiation therapy patient is in re mission at this time -Nicotine use: Counseling was provided marijuana use counseling was provided Patient is medically stable to be discharged DVT prophylaxis: As per primary service Full Code Continue IV ceftriaxone, PO prednisone Continue oxygen support and wean as tolerated Pulmonology following Continue to encourage incentive spirometry Repeat CBC BMP in the AM Patient currently at 2 to 3L of oxygen via nasal cannula Miralax and colace added for complaints of constipation. Has normal bowel sounds and soft abdomen. Possible DC to IPR tomorrow The impression and plan of care has been dictated by Monica Dutta Nurse Practitioner as directed. Dr. Jethro MD I have performed a history and physical examination and medical decision making of this patient, discussed the same with the dictator, and agree with the dictators assessment and plan as written, documented as a scribe. Based on total visit time, I have performed more than 50% of this visit. Objective - Vital Signs Vital signs: Vital Signs Temp 97.5 F L 11/07/24 06:45 Pulse 65 11/07/24 06:45 Resp 17 11/07/24 06:45 BP 149/82 04/14/25 06:45 Pulse Ox 94 L 11/07/24 10:41 FiO2 21 11/03/24 07:54 Intake & Output 11/06/24 11/07/24 11/07/24 18:59 06:59 18:59 Intake Total 500 350 Output Total 1080 400 Balance -1080 100 350 Intake: Oral 500 350 Output: Urine 1080 400 Other: Voiding Method Urinal Urinal Toilet Urinal # Bowel Movements 1 - Labs CBC & Chem 7: 11/07/24 03:58 11/07/24 03:58 Labs: Abnormal Lab Results - Last 24 Hours (Table) 11/06/24 11/07/24 11/07/24 Range/Units 16:39 03:58 03:58 WBC 11.21 H (4.50-10.00) X 10*3/uL RBC 3.84 L (4.40-5.60) X 10*6/uL Hgb 11.8 L (13.0-17.0) g/dL Hct 35.2 L (39.6-50.0) % Immature Gran # 0.09 H (0.00-0.04) X 10*3/uL Neutrophils # 8.66 H (1.80-7.70) X 10*3/uL Eosinophils # 0.01 L (0.04-0.35) X 10*3/uL Sodium 132 L (135-145) mmol/L Creatinine 0.5 L (0.6-1.5) mg/dL BUN/Creatinine Ratio 38.00 H (12.00-20.00) Ratio POC Glucose (mg/dL) 174 H (70-110) mg/dL 11/07/24 Range/Units 12:22 WBC (4.50-10.00) X 10*3/uL RBC (4.40-5.60) X 10*6/uL Hgb (13.0-17.0) g/dL Hct (39.6-50.0) % Immature Gran # (0.00-0.04) X 10*3/uL Neutrophils # (1.80-7.70) X 10*3/uL Eosinophils # (0.04-0.35) X 10*3/uL Sodium (135-145) mmol/L Creatinine (0.6-1.5) mg/dL BUN/Creatinine Ratio (12.00-20.00) Ratio POC Glucose (mg/dL) 158 H (70-110) mg/dL Assessment and Plan Time with Patient: Less than 30
[2024-11-07 16:06] VITALS: BMI 16.6
[2024-11-07 16:56] LABS: Glucose,Whole Blood 140 mg/dL (70-110)
--- NOTE | 2024-11-07 16:58 | P.PN ---
Subjective Progress Note Date: 11/07/24 (Rehab recommendations ) Principal diagnosis: Poly Trauma Patient is a 64-year-old right handed male who lives with his spouse in a SS home, [address]. Prior to admission, patient was independent with mobility and ADLs. He drives. Both patient and retired. helps care for her father. There are children that live local and can help if needed. Patient with past medical history significant for hypertension, HLD, Asthma, COPD, and lung cancer status post chemo/radiation. He presented to the ED on 10/31/24 after a fall from a barn roof. Apparently the roof gave out and the patient fell approximately 20-25 ft. May have briefly lost consciousness. The trauma team was alerted and evaluated this patient. CT of the brain and C-spine did not show any acute fracture or dislocation of the cervical spine. No acute intracranial hemorrhage or midline shift. Patient did have a right-sided pneumothorax, and is status post right-sided chest tube insertion. Follow-up CT of the chest, abdomen, pelvis with contrast showed a tiny residual anterior right basilar pneumothorax with an appropriate placed right-sided chest tube. Subcutaneous emphysema along the posterior lateral aspect of the right lower ribs with suspected acute nondisplaced fracture of the right posterior lateral 10th rib. Old malunion fracture of the right posterior right ninth rib redemonstrated. Acute comminuted fracture of the right superior and inferior pelvic rami and right upper sacrum along with right L4 and L5 transverse processes. Right superior pelvic rami fracture extends into the anterior wall of the acetabulum. 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 There is a small amount of acute hemorrhage in the anterior right pelvis and presacral region. No intra-abdominal traumatic injuries noted. He was evaluated by Orthopedics, No immediate surgical intervention was recommended. LFTs mildly elevated. Urine toxicology screen positive for opiates, TCAs, and marijuana. Alcohol level less than 10. Patient was able to get chest tube removed. LSO brace was ordered for Lumbar transverse process fractures, He was made TTWB to R[facility]. PM&R consulted for rehab recommendations. Patient was seen by therapies, Min A with transfers, bed mobility, and gait 3 ft, UB dressing Min A, LB dressing and bathing Mod-Max Assist 11/03/24: Patient states he is doing 'ok'. Still in quite a bit of pain, mostly on his right side pelvis/groin. He denies CP and abdominal pain. He does have some rib pain and SOB with exertion. He is currently on 6L NC, does not wear O2 at home. He reports occasional dizziness when he gets SOB. He reports he has not had a BM since before his injury on 10/31. He has had decreased appetite. 11/07: Patient reports he is doing better overall, still having pain but starting to feel more controlled. Feels less SOB, on 2.5 L NC. States he is still wanting to come to [facility], but does not quite feel ready yet. Reports LBM was ~1 week ago, denies abdominal pain, N/V, +flatus. Therapy evaluations from 11/07: min A with transfers, Beba 20 feet rolling walker, modA LB dress, modA bathing Objective - Vital Signs Vital signs: Vital Signs Temp 97.6 F 11/07/24 14:00 Pulse 78 11/07/24 14:00 Resp 17 11/07/24 14:00 BP 123/75 11/07/24 14:00 Pulse Ox 93 L 11/07/24 14:00 FiO2 21 11/03/24 07:54 Intake & Output 11/06/24 11/07/24 11/07/24 18:59 06:59 18:59 Intake Total 500 350 Output Total 1080 400 Balance -1080 100 350 Weight 52.5 kg Intake: Oral 500 350 Output: Urine 1080 400 Other: Voiding Method Urinal Urinal Toilet Urinal # Bowel Movements 1 - Exam General: WDWN male, laying in bed, alert, NAD HEENT: head normocephalic, atraumatic; moist mucous membranes, external ears intact with hearing intact to conversational speech CV: No acute cardiac distress Lungs: on 2.5L NC, even and non labored respirations Abdomen: soft, NT, ND MSK: full ROM bilateral UE, R > L LE limited secondary to pain. MMT: B/L SABD/EE/EF/HG 5/5, R HF 2/5, R KE 3/5, DF 5/5; L HF 4/5, KE 4/5, DF 5/5 Neuro:Alert, oriented x 4, Speech is clear and fluent CN 2-12 grossly intact Sensation intact to light touch bilateral UE and LEs Psych: mood calm, affect appropriate Extremities: calves supple, non tender, no LE edema Skin: intact where exposed, old chest tube insertion site with dressing C/D/, PIV - Labs CBC & Chem 7: 11/07/24 03:58 11/07/24 03:58 Labs: Abnormal Lab Results - Last 24 Hours (Table) 11/07/24 11/07/24 11/07/24 Range/Units 03:58 03:58 12:22 WBC 11.21 H (4.50-10.00) X 10*3/uL RBC 3.84 L (4.40-5.60) X 10*6/uL Hgb 11.8 L (13.0-17.0) g/dL Hct 35.2 L (39.6-50.0) % Immature Gran # 0.09 H (0.00-0.04) X 10*3/uL Neutrophils # 8.66 H (1.80-7.70) X 10*3/uL Eosinophils # 0.01 L (0.04-0.35) X 10*3/uL Sodium 132 L (135-145) mmol/L Creatinine 0.5 L (0.6-1.5) mg/dL BUN/Creatinine Ratio 38.00 H (12.00-20.00) Ratio POC Glucose (mg/dL) 158 H (70-110) mg/dL Assessment and Plan Assessment: #Impaired gait and ADLs secondary to Fall from 25 feet resulting in traumatic right pneumothorax and polytrauma -s/p chest tube placement, chest tube was removed now -11/03 patient currently on 6L O2 NC, will need to be 5L or below for IPR -11/07: patient now on 2.5L NC, denies SOB at rest # Right sided Pelvic fracture and small intrapelvic hemorrhage -TTWB per Orthopedic team # Acute right sacral fracture #Acute right L4 and L5 transverse process fractures -LSO brace when out of bed #Right 10th rib fracture nondisplaced and pulmonary contusion #Pain Secondary to above -11/03 On Tylenol 650 mg Q 6 prn, [place] 5/325 mg Q 4 hrs prn, Toradol IV 15 mg Q6 hrs, Morphine IV prn -Patient will need to be transitioned off IV pain medications for IPR, Patient takes [place] daily, and Motrin and Flexeril prn at home -11/07: states he had one dose of IV pain medication recently, pain starting to feel more controlled with oral pain medication, but doesn't quite feel ready to come to IPR, hoping to feel ready in the next couple of days. #DVT Proph -Lovenox SQ Q 12 hrs #Comorbidities: Hypertension, Nicotine dependence, HLD, COPD, asthma, History of lung cancer s/p bx with chemoradiation #Your medical dx and management Dispo: Patient is noted to be below baseline function, would benefit from a structured Inpatient rehabilitation stay with 3 hrs of therapy a day, 6-7 days a week with Physical Therapy, Occupational Therapy and Speech Therapy (if in dicated). Patient has medical complexity requiring nursing services, close physician medical management, and interdisciplinary team approach for rehab. Patient is motivated and has good social support. Patient WILL NOT need insurance authorization. Patient is agreeable to IPR. Awaiting medical clear ance. Patient seen and examined in coordiation with Dr Richardson. Thank you for consulting our services
[2024-11-07 21:09] LABS: Glucose,Whole Blood 120 mg/dL (70-110)
[2024-11-08 06:19] LABS: Glucose,Whole Blood 76 mg/dL (70-110)
[2024-11-08 07:54] VITALS: BP 129/86; RESP 18; TEMP 98.6
[2024-11-08 11:58] LABS: Glucose,Whole Blood 112 mg/dL (70-110)
[2024-11-08] MEDS: IPRATROPIUM-ALBUTEROL 3 ML NEB INHALATION PRN (12:32)
[2024-11-08 12:45] VITALS: PULSE 75
--- NOTE | 2024-11-08 12:59 | P.DS ---
Providers Date of admission: 10/31/24 18:09 Expected date of discharge: 11/08/24 Attending physician: Jasper Sanchez Consults: 10/31/24 18:06 Consult Physician Routine Consulting Provider: Balbir Pritchett Consult Reason/Comments: pelvic fractures Do you want consulting provider notified?: Already Contacted Consult Physician Routine Consulting Provider: Kobe Rodriguez Consult Reason/Comments: cc Do you want consulting provider notified?: Yes 11/01/24 08:47 Consult Physician Routine Consulting Provider: Jhonathan Matta Consult Reason/Comments: Chest tube management Do you want consulting provider notified?: Already Contacted 11/01/24 11:05 Consult Physician Urgent Consulting Provider: Thiago Vergara Consult Reason/Comments: medical management Do you want consulting provider notified?: Yes 11/03/24 09:51 Consult Physician Routine Consulting Provider: Abel Eli Consult Reason/Comments: eval for IPR Do you want consulting provider notified?: Yes Primary care physician: Magdalena Sarmiento Hospital Course: Discharge diagnosis 1. Fall from 25 feet 2. Traumatic right pneumothorax status post chest tube placement 3. Pelvic fracture and small intrapelvic hemorrhage 4. Acute right sacral fracture 5. Acute right L4 and L5 transverse process fractures 6. Right 10th rib fracture nondisplaced and pulmonary contusion 7. Hypertension 8. Nicotine dependence 9. Constipation Hospital course This is a 64-year-old male who presented to the hospital after a fall from barn roof of [address] scan of chest abdomen and pelvis completed that had reported right pneumothorax, pelvic fracture and small intrapelvic hemorrhage, acute right sacral fracture, acute right L4 and L5 transverse process fractures and right 10th rib fracture nondisplaced. Patient also had CT scan of head and neck with no acute findings. Patient admitted to trauma service. He did have a chest tube placed for the right pneumothorax. Chest tube was removed during this admission. Pneumothorax resolved. Patient seen by multiple consultants including cardiothoracic, pulmonary service, orthopedic service, orthopedic spinal service and medicine service. Patient has been cleared by all consultants for discharge. His pain is controlled. He is afebrile. He is tolerating diet. He he is having flatus. He did work with physical therapy. They recommended rehab. Patient is a candidate for inpatient rehab. Patient being discharged to inpatient rehab today. He currently is requiring 2 L of oxygen satting at 92%. He is stable for discharge. Please refer to chart for any further details. Physician Wastewater Supervisor note has been reviewed by physician. Signing provider agrees with the documented findings, assessment, and plan of care. Patient Condition at Discharge: Stable Plan - Discharge Summary New Discharge Prescriptions: New Docusate [Colace] 100 mg PO BID cap INSULIN LISPRO (HumaLOG) [HumaLOG] 0 unit SQ ACHS each Enoxaparin [Lovenox] 40 mg SQ Q12HR each polyethylene glycoL 3350 [Miralax] 17 gm PO DAILY packet amLODIPine [Norvasc] 5 mg PO DAILY tab Famotidine [Pepcid] 20 mg PO BID tab Albuterol Nebulized [Ventolin Nebulized] 2.5 mg INHALATION RT-QID PRN ml PRN Reason: Shortness Of Breath Or Wheezing HYDROcodone/APAP 5-325MG [Wilton 5-325] 1 tab PO Q6HR PRN 3 Days #12 tab PRN Reason: Pain Nicotine 21Mg/24Hr Patch [Habitrol] 1 patch TRANSDERM DAILY patch methylPREDNISolone [Medrol Dose Pack] 0 mg PO DIRECTED #1 packet Melatonin 5 mg PO HS tab Continue Ibuprofen [Motrin] 800 mg PO TID PRN PRN Reason: Pain Cyclobenzaprine [Flexeril] 10 mg PO HS PRN PRN Reason: Muscle Spasm Sertraline [Zoloft] 150 mg PO DAILY Budesonide/Glycopyr/Formoterol [Breztri Aerosphere Inhaler] 2 puff INHALATION DIRECTED Losartan [Cozaar] 25 mg PO DAILY Atorvastatin [Lipitor] 40 mg PO DAILY Discontinued Hydrocodone/Acetaminophen [Wilton 7.5-325] 1 tab PO DAILY Discharge Medication List Cyclobenzaprine [Flexeril] 10 mg PO HS PRN 06/09/16 [History] Ibuprofen [Motrin] 800 mg PO TID PRN 06/09/16 [History] Sertraline [Zoloft] 150 mg PO DAILY 04/20/19 [History] Budesonide/Glycopyr/Formoterol [Breztri Aerosphere Inhaler] 2 puff INHALATION DIRECTED 07/16/21 [History] Atorvastatin [Lipitor] 40 mg PO DAILY 10/31/24 [History] Losartan [Cozaar] 25 mg PO DAILY 10/31/24 [History] Albuterol Nebulized [Ventolin Nebulized] 2.5 mg INHALATION RT-QID PRN ml 11/08/24 [Rx] Docusate [Colace] 100 mg PO BID cap 11/08/24 [Rx] Enoxaparin [Lovenox] 40 mg SQ Q12HR each 11/08/24 [Rx] Famotidine [Pepcid] 20 mg PO BID tab 11/08/24 [Rx] HYDROcodone/APAP 5-325MG [Wilton 5-325] 1 tab PO Q6HR PRN 3 Days #12 tab 11/08/24 [Rx] INSULIN LISPRO (HumaLOG) [HumaLOG] 0 unit SQ ACHS each 11/08/24 [Rx] Melatonin 5 mg PO HS tab 11/08/24 [Rx] Nicotine 21Mg/24Hr Patch [Habitrol] 1 patch TRANSDERM DAILY patch 11/08/24 [Rx] amLODIPine [Norvasc] 5 mg PO DAILY tab 11/08/24 [Rx] methylPREDNISolone [Medrol Dose Pack] 0 mg PO DIRECTED #1 packet 11/08/24 [ Rx] polyethylene glycoL 3350 [Miralax] 17 gm PO DAILY packet 11/08/24 [Rx] Follow up Appointment(s)/Referral(s): Drew Bedolla DO [Doctor of Osteopathic Medicine] - 1 Week Magdalena Sarmiento MD [Primary Care Provider] - 1-2 days Balbir Pritchett MD [Medical Doctor] - 1 Week Activity/Diet/Wound Care/Special Instructions: Transfer to [facility] Orthopedic Discharge Instruction: Toe-touch weightbearing on your right lower extremity as shown to you in the hospital by physical therapy. Use a walker or crutches to ambulate. Follow-up in the office 7 days following discharge for repeat x-rays to monitor for fracture displacement. [facility] [phone] Discharge Disposition: OTHER INSTITUTION NOT DEFINED
--- NOTE | 2024-11-08 13:30 | P.PN ---
Subjective Progress Note Date: 11/08/24 63-year-old male admitted after a fall and multiple rib fractures leading to traumatic right pneumothorax. Patient is off oxygen at this time patient does not have any questions at this time. Patient is otherwise doing well clinically. 11/05/2024 Patient is evaluated today in follow up on the medical floor. He remains on oxygen via nasal cannula at 5L. Encouraged to continue incentive spirometer 10 x an hour while awake. White blood cell count 11.57. Sodium level 134. 11/06/2024 Patient is eval seen in follow-up in the medical floor. He is having no acute complaints at this time. Patient remains on IV Solu-Medrol 40 mg every 12 hours. He is currently weaned down to 2 L of oxygen via nasal cannula with saturations of 98%. He reports no significant shortness of breath or chest discomfort at this time. He is continue to use his incentive spirometer. Patient stable to discharge to [facility] tomorrow as his oxygen requirements have decreased. 11/07/2024 Patient is evaluated in follow-up on the medical floor. He is up in the bathroom try to have a bowel movement. Feels constipated. Colace and MiraLAX have been added today by general surgery. He remains on oxygen via nasal cannula between 2 to 3 L.His lungs are diminished but essentially clear he does continue to use his incentive spirometer. He is a possible discharge to [facility] tomorrow. Labs today reveal white blood cell count 11.21, hemoglobin 11.8, sodium of 132, BUN of 19 creatinine of 0.5. 11/08/2024 Patient evaluated today in follow up on the medical floor. He has been up to the restroom passing gas but no BM yet. He has normoactive bowel sounds and abdomen is soft and nontender. Currently on miralax and colace. Chest tube has been out and patient has been using incentive spirometer. He is down to oxygen via nasal cannula at 2 to 3 L. He will be discharged to [facility]. Review of Systems Constitutional: Denied any fatigue denied any fever. Cardio vascular: denied any chest pain, palpitations Gastrointestinal: denied any nausea, vomiting, diarrhea Pulmonary: Denied any shortness of breath cough Neurologic denied any new focal deficits All inpatient medications were reviewed and appropriate changes in these medications as dictated in the interval history and assessment and plan. 11/04/2024 Patient is evaluated today in follow up. Resting in bed comfortably. Chest tube has been removed. He remains on oxygen via nasal cannula at 5L. He has been approved for DC to inpatient rehab however is unable to discharge until he is requiring less than 5L of oxygen. has some concerns regarding his decision making and episodes of agitation. States this has been going on since he had radiation on his brain. Per the . Will follow up with family for this tomorrow. He wound benefit from cognitive evaluation by speech therapy vs. psychiatry. PHYSICAL EXAMINATION: GENERAL: The patient is alert and oriented x3, not in any acute distress. Well developed, well nourished. HEENT: Pupils are round and equally reacting to light. EOMI. No scleral icterus. No conjunctival pallor. Normocephalic, atraumatic. No pharyngeal erythema. No thyromegaly. CARDIOVASCULAR: S1 and S2 present. No murmurs, rubs, or gallops. PULMONARY: Chest is clear to auscultation, no wheezing or crackles. ABDOMEN: Soft, nontender, nondistended, normoactive bowel sounds. No palpable organomegaly. MUSCULOSKELETAL: No joint swelling or deformity. EXTREMITIES: No cyanosis, clubbing, or pedal edema. NEUROLOGICAL: Gross neurological examination did not reveal any focal deficits. SKIN: No rashes. Assessment and plan -Multiple rib fractures traumatic pneumothorax -Fall at home -Hypertension L4-L5 transverse process fracture -Pubic rami fracture -Hypovolemic hyponatremia received IV fluids -Acute hypoxic respiratory failure secondary to pneumothorax and rib fractures which improved at this time as well without any significant exacerbation -History of lung cancer status post chemoradiation therapy patient is in remiss ion at this time -Nicotine use: Counseling was provided marijuana use counseling was provided Patient is medically stable to be discharged DVT prophylaxis: As per primary service Full Code Completed course of antibiotics Medrol dose pack on discharge Continue oxygen support and wean as tolerated Pulmonology following Continue to encourage incentive spirometry Repeat CBC BMP in the AM Patient currently at 2 to 3L of oxygen via nasal cannula Miralax and colace added for complaints of constipation. Has normal bowel sounds and soft abdomen. Stable medically for dc to [facility] The impression and plan of care has been dictated by Monica Dutta, Nurse Practitioner as directed. Dr. Jethro MD I have performed a history and physical examination and medical decision making of this patient, discussed the same with the dictator, and agree with the dictators assessment and plan as written, documented as a scribe. Based on total visit time, I have performed more than 50% of this visit. Objective - Vital Signs Vital signs: Vital Signs Temp 98.6 F 11/08/24 07:52 Pulse 75 11/08/24 12:45 Resp 18 11/08/24 07:52 BP 129/86 11/08/24 07:52 Pulse Ox 92 L 11/08/24 09:40 FiO2 21 11/03/24 07:54 Intake & Output 11/07/24 11/08/24 11/08/24 18:59 06:59 18:59 Intake Total 500 Output Total 400 500 350 Balance 100 -500 -350 Weight 52.5 kg Intake: Oral 500 Output: Urine 400 500 350 Other: Voiding Method Toilet Toilet Urinal Urinal # Voids 2 # Bowel Movements 1 - Labs CBC & Chem 7: 11/07/24 03:58 11/07/24 03:58 Labs: Abnormal Lab Results - Last 24 Hours (Table) 11/07/24 11/07/24 11/08/24 Range/Units 16:55 21:08 11:56 POC Glucose (mg/dL) 140 H 120 H 112 H (70-110) mg/dL Assessment and Plan Time with Patient: Less than 30
== END 2024-11-08 14:12 | disposition still patient (30) | DRG 963 ==
LOC: EC 15:50 → 2SICU 18:09 → 3SCARD 11-01 08:46 → 4SSUR 11-05 00:56
PROVIDERS: ADMIT Surgery; ATTEND Surgery
PROC: 0W9930Z Drainage of Right Pleural Cavity with Drainage Device, Percutaneous Approach (ICD-10-PCS; principal; 2024-10-31)
DX: S27.0XXA Traumatic pneumothorax, initial encounter (principal); J96.01 Acute respiratory failure with hypoxia; S32.10XA Unspecified fracture of sacrum, initial encounter for closed fracture; S32.591A Other specified fracture of right pubis, initial encounter for closed fracture; E87.1 Hypo-osmolality and hyponatremia; J45.901 Unspecified asthma with (acute) exacerbation; C34.90 Malignant neoplasm of unspecified part of unspecified bronchus or lung; J44.1 Chronic obstructive pulmonary disease with (acute) exacerbation; M87.851 Other osteonecrosis, right femur; S32.049A Unspecified fracture of fourth lumbar vertebra, initial encounter for closed fracture; S32.059A Unspecified fracture of fifth lumbar vertebra, initial encounter for closed fracture; S22.31XA Fracture of one rib, right side, initial encounter for closed fracture; S32.119A Unspecified Zone I fracture of sacrum, initial encounter for closed fracture; I10 Essential (primary) hypertension; I73.9 Peripheral vascular disease, unspecified; W13.2XXA Fall from, out of or through roof, initial encounter; T79.7XXA Traumatic subcutaneous emphysema, initial encounter; R31.29 Other microscopic hematuria; Z92.21 Personal history of antineoplastic chemotherapy; E78.5 Hyperlipidemia, unspecified; D72.829 Elevated white blood cell count, unspecified; F17.210 Nicotine dependence, cigarettes, uncomplicated; Z85.118 Personal history of other malignant neoplasm of bronchus and lung; E86.1 Hypovolemia; K59.00 Constipation, unspecified; M16.11 Unilateral primary osteoarthritis, right hip; M89.751 Major osseous defect, right pelvic region and thigh; W11.XXXA Fall on and from ladder, initial encounter; Y92.009 Unspecified place in unspecified non-institutional (private) residence as the place of occurrence of the external cause; Z79.899 Other long term (current) drug therapy; Z82.49 Family history of ischemic heart disease and other diseases of the circulatory system; Z92.3 Personal history of irradiation; Z98.1 Arthrodesis status; Y92.099 Unspecified place in other non-institutional residence as the place of occurrence of the external cause; Z88.5 Allergy status to narcotic agent
CPT/HCPCS: 32551; 36415; 70450; 71045; 71260; 72125; 72170; 74177; 80048; 80053; 80306; 80320; 81001; 83036; 83605; 84145; 85025; 85610; 85730; 86850; 86900; 86901; 87636; 90471; 90715; 93005; 94640; 94760; 96374; 96375; 96376; 99291

== ENCOUNTER → 2025-02-24 | Outpatient (CLI) | payer MEDICARE ==
--- NOTE | 2025-02-24 15:45 | CT ---
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 If MIP/3-D images were created, there are created on a separate workstation. Contrast used:100ml mL of Isovue 300 with IV Contrast, (none if empty) Oral contrast used: with Oral Contrast (none if empty) CT DLP: 627.80 mGycm, Automated exposure control for dose reduction was used. FINDINGS: CT CHEST: Portion of the thyroid visualized is normal. Small densities within the lung apex can be related to scarring, images 6 and 8. There is a 0.5 cm nodule peripheral right upper lobe. Series 4 image 14. There is an adjacent 0.7 cm nodule. Series 4 image 15 There is a 0.4 cm nodule lateral left midlung. Series 4 image 31. There is a 1.7 cm nodule in the periphery of the left lung base with microspiculated margins. Series 4 image 48. Additional workup with PET CT is recommended. This is new from comparison No enlarged mediastinal or hilar adenopathy is evident. No significant coronary artery calcification s. The ascending aorta diameter at the level of the main pulmonary artery is 3.7 cm. The main pulmonary artery diameter at the bifurcation is 2.6 cm. There appears to be some mild diffuse pulmonary fibrosis within the periphery of the lungs. CT ABDOMEN: Liver: Normal Spleen: Normal Pancreas: Normal Adrenal glands: The adrenal glands are normal. Gallbladder: Normal Kidneys: No masses are evident. No hydronephrosis is present. No cysts are present. Delayed images were obtained through the kidneys, which remain unremarkable. Aorta: Vascular calcification is within the aorta. Inferior vena cava: Normal. CT PELVIS: Loops of bowel within the abdomen and pelvis are normal. Diverticulosis without acute diverticulitis is within the sigmoid colon. There are loops of bowel which are incompletely distended or lack ora l contrast limiting their evaluation. Appendix: Normal as visualized. Urinary bladder: Normal. Genitourinary structures: The prostate is prominent. Right-sided large calcifications are present. Osseous structures: No suspicious lytic or sclerotic lesions. There is a healing fracture of the medi al right pubic ramus. There appears to be some degenerative change and possible avascular necrosis of the right femoral head. Degenerative disc changes are within the lumbar spine. Prior posterior right rib fractures are healing IMPRESSION: 1. There is a 1.7 cm microspiculated mass left lung base suspicious for neoplasm not present previous ly. There are additional lung nodules present. PET/CT recommended for additional workup. 2. Healing fractures notably the medial right pubic ramus. 3. Diverticulosis without acute diverticulitis sigmoid colon. [facility], Workstation: [id number], 02/24/2025 3:43 PM
== END | disposition home or self-care (01) ==
LOC: RADCTMAIN 12:32
PROVIDERS: ATTEND Internal Medicine Hematology & Oncology
DX: S32.511A Fracture of superior rim of right pubis, initial encounter for closed fracture (principal); C34.92 Malignant neoplasm of unspecified part of left bronchus or lung; I10 Essential (primary) hypertension; M12.9 Arthropathy, unspecified; J44.9 Chronic obstructive pulmonary disease, unspecified; R91.8 Other nonspecific abnormal finding of lung field; K57.30 Diverticulosis of large intestine without perforation or abscess without bleeding
CPT/HCPCS: 71260; 74177; Q9967